=== PATIENT | male | born 1955 | race Caucasian/White ===

== ENCOUNTER 2016-09-01 09:34 | Inpatient (IN) | payer MEDICARE ==
[~2016-09-01] VITALS: Ht 175.3 cm; Wt 113.4 kg
[~2016-09-01 09:34] MED LIST: AMLO10TA2 PO; AMLO5TAB2 PO; AMOX875T2 PO; ASP325TEC PO; ASP81TEC PO; ASPI-983 PO; ASPI-999 PO; ATEN50TA PO; ATN50T; ATOR40TA70 PO; CLNZ.5T; CLOP75TA PO; CLOP75TA28 PO; FLUT1DIS26 IH; ISOS30TA3 PO; LISI-556 PO; LISI40TA PO; LOSA100T28 PO; MECL12.579 PO; METH4TAB PO; METO-272 PO; METO-274 PO; NITR0.4T SL; NITR0.4T39 SL; PRAV40TA PO; PRAV80TA2 PO; RT-ALBUINH IH
[2016-09-01] MEDS ORDERED: NS IV 1000 ML 1,000 ML IV SCH (09:45)
[2016-09-01 09:53] LABS: BASOPHILS # (AUTO) 0.1 10^3/uL (0.0-0.1); BASOPHILS % (AUTO) 0 % (0-10); EOSINOPHILS # (AUTO) 0.3 10^3/uL (0.0-0.3); EOSINOPHILS % (AUTO) 2 % (0-10); LYMPHOCYTES % (AUTO) 6 % (12-44); MEAN CORPUSCULAR HEMOGLOBIN 31 PG (25-34); MEAN CORPUSCULAR HGB CONC 34 G/DL (32-36); MEAN CORPUSCULAR VOLUME 92 FL (80-99); MEAN PLATELET VOLUME 9.2 FL (7.4-10.4); MONOCYTES # (AUTO) 1.1 X 10^3 (0.0-1.0); MONOCYTES % (AUTO) 7 % (0-12); NEUTROPHILS # (AUTO) 14.8 X 10^3 (1.8-7.8); NEUTROPHILS % (AUTO) 86 % (42-75); PLATELET COUNT 349 10^3/uL (130-400); RED CELL DISTRIBUTION WIDTH 13.9 % (10.0-14.5); WHITE BLOOD COUNT 17.2 10^3/uL (4.3-11.0)
[2016-09-01] MEDS ORDERED: RT-ALBUTEROL/IPRATROPIUM 3 ML (DUONEB) VIAL INH ONE (10:00)
--- NOTE | 2016-09-01 10:01 | ED Cough/URI ---
General Chief Complaint: Respiratory Problems Stated Complaint: CHEST PAIN Nursing Triage Note: PT REPORTS SOA/COUGH SINCE THURSDAY. PT REPROTS DEVELOPED CP TODAY WITH FEVER AND PRODUCTIVE COUGH. Source: patient, EMS Exam Limitations: no limitations History of Present Illness Time seen by provider: 09:54 Initial Comments 61-year-old male presents with a history of shortness of breath and cough that began 4 days ago. The patient is noted a progressive fever and productive cough. Allergies and Home Medications Allergies Coded Allergies: No Known Drug Allergies (Verified , 09/23/15) Home Medications Amlodipine Besylate 10 Mg Tablet, 10 MG PO DAILY, (Reported) Aspirin 81 Mg Tablet.dr, 81 MG PO DAILY, (Reported) Atorvastatin Calcium 40 Mg Tablet, 40 MG PO HS, (Reported) LAST FILLED 03/19/16 #30 Clopidogrel Bisulfate 75 Mg Tablet, 75 MG PO DAILY, (Reported) LAST FILLED 02/01/16 #90 Isosorbide Mononitrate 30 Mg Tab.er.24h, 30 MG PO DAILY, (Reported) LAST FILLED 04/02/16 #30 Losartan Potassium 100 Mg Tablet, 100 MG PO DAILY, (Reported) LAST FILLED 03/18/16 #30 Meclizine HCl 12.5 Mg Tablet, 12.5 MG PO TID PRN for DIZZINESS, #30 Ref 0 Prescribed by: TAMARA HAN on 05/29/16 1707 Metoprolol Succinate 100 Mg Tab.er.24h, 100 MG PO BID, (Reported) LAST FILLED 03/06/16 #60 Nitroglycerin 0.4 Mg Tab.subl, 0.4 MG SL UD PRN for CHEST PAIN, (Reported) Constitutional: chills, fever EENTM: No hearing loss Respiratory: see HPI, cough Cardiovascular: No chest pain Gastrointestinal: No abdominal pain, No nausea, No vomiting Genitourinary: No dysuria, No frequency Musculoskeletal: No back pain Skin: No rash Psychiatric/Neurological: No Symptoms Reported Hematologic/Lymphatic: No Symptoms Reported Immunological/Allergic: no symptoms reported Past Luzgqxn-Dihvgj-Qkdyam Hx Patient Social History Alcohol Use: Occasionally Uses Recreational Drug Use: No Smoking Status: Former Smoker Type Used: Cigarettes, Smokeless Tobacco Former Smoker/When Quit: May 03, 2012 Recent Foreign Travel: No Contact w/Someone Who Travel: No Recent Infectious Disease Expo: No Recent Hopitalizations: No Immunizations Up To Date Tetanus Booster (TDap): Unknown PED Vaccines UTD: No Date of Pneumonia Vaccine: Jul 27, 2012 Date of Influenza Vaccine: Mar 29, 2016 Seasonal Allergies Seasonal Allergies: No Surgeries HX Surgeries: Yes (SPLENECTOMY, BALOON) Surgeries: Abdominal, Adenoidectomy, Cardiac, Coronary Stent, Tonsillectomy Respiratory Hx Respiratory Disorders: Yes Respiratory Disorders: COPD Cardiovascular Hx Cardiac Disorders: Yes (stents/ballooned) Cardiac Disorders: Coronary Artery Disease, Heart Attack, High Cholesterol, Hypertension Neurological Hx Neurological Disorders: No Reproductive System Hx Reproductive Disorders: No Sexually Transmitted Disease: No HIV/AIDS: No Genitourinary Hx Genitourinary Disorders: No Gastrointestinal Hx Gastrointestinal Disorders: No Musculoskeletal Hx Musculoskeletal Disorders: No Endocrine Hx Endocrine Disorders: No HEENT HX ENT Disorders: No Loss of Vision: Denies Hearing Impairment: Hard of Hearing 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) Cancer: Leukemia Psychosocial Hx Psychiatric Problems: Yes Behavioral Health Disorders: Anxiety Integumentary HX Skin/Integumentary Disorder: No Blood Transfusions Hx Blood Disorders: Yes (HX OF LEUKEMIA) Adverse Reaction to a Blood Tr: No Reviewed Nursing Assessment Reviewed/Agree w Nursing PMH: Yes Family Medical History Family Medial History: Arthritis 19 FATHER 19 MOTHER Cardiovascular disease 19 FATHER Completed stroke 19 FATHER, Onset:Unknown (1981) Deadly fall G8 BROTHER (9 years) Hypercholesterolemia 19 FATHER Hypertension 19 FATHER Myocardial infarction 19 FATHER 19 MOTHER (C.O.D.) Physical Exam Vital Signs Vital Sign - Last 12Hours 09/01/16 09/01/16 09:47 10:01 Temp 102.5 Pulse 133 Resp 18 B/P (MAP) 148/93 Pulse Ox 92 O2 Flow Rate 2.00 Capillary Refill : Less Than 3 Seconds General Appearance: WD/WN, mild distress HEENT: normal ENT inspection Neck: normal inspection Respiratory: no respiratory distress, decreased breath sounds Cardiovascular: regular rate, rhythm, no murmur Gastrointestinal: non tender, soft, no pulsatile mass Extremities: normal range of motion, normal inspection, no pedal edema Neurologic/Psychiatric: no motor/sensory deficits, alert Skin: normal color, warm/dry Focused Exam Lactic Acid Level Laboratory Tests Test 09/01/16 09:35 Lactic Acid Level 1.88 MMOL/L (0.50-2.00) Progress/Results/Core Measures Results/Orders Lab Results Laboratory Tests Test 09/01/16 09:35 Range/Units White Blood Count 17.2 H 4.3-11.0 10^3/uL Red Blood Count 5.10 4.35-5.85 10^6/uL Hemoglobin 15.8 13.3-17.7 G/DL Hematocrit 47 40-54 % Mean Corpuscular Volume 92 80-99 FL Mean Corpuscular Hemoglobin 31 25-34 PG Mean Corpuscular Hemoglobin Concent 34 32-36 G/DL Red Cell Distribution Width 13.9 10.0-14.5 % Platelet Count 349 130-400 10^3/uL Mean Platelet Volume 9.2 7.4-10.4 FL Neutrophils (%) (Auto) 86 H 42-75 % Lymphocytes (%) (Auto) 6 L 12-44 % Monocytes (%) (Auto) 7 0-12 % Eosinophils (%) (Auto) 2 0-10 % Basophils (%) (Auto) 0 0-10 % Neutrophils # (Auto) 14.8 H 1.8-7.8 X 10^3 Lymphocytes # (Auto) 1.0 1.0-4.0 X 10^3 Monocytes # (Auto) 1.1 H 0.0-1.0 X 10^3 Eosinophils # (Auto) 0.3 0.0-0.3 10^3/uL Basophils # (Auto) 0.1 0.0-0.1 10^3/uL Neutrophils % (Manual) 80 % Lymphocytes % (Manual) 7 % Monocytes % (Manual) 5 % Eosinophils % (Manual) 1 % Basophils % (Manual) 0 % Band Neutrophils 7 % [place]hotra[place] Bodies SLIGHT Sodium Level 139 135-145 MMOL/L Potassium Level 4.0 3.6-5.0 MMOL/L Chloride Level 100 98-107 MMOL/L Carbon Dioxide Level 29 21-32 MMOL/L Anion Gap 10 5-14 MMOL/L Blood Urea Nitrogen 13 7-18 MG/DL Creatinine 1.35 H 0.60-1.30 MG/DL Estimat Glomerular Filtration Rate 54 BUN/Creatinine Ratio 10 Glucose Level 143 H 70-105 MG/DL Lactic Acid Level 1.88 0.50-2.00 MMOL/L Calcium Level 8.7 8.5-10.1 MG/DL Total Bilirubin 1.4 H 0.1-1.0 MG/DL Aspartate Amino Transf (AST/SGOT) 29 5-34 U/L Alanine Aminotransferase (ALT/SGPT) 25 0-55 U/L Alkaline Phosphatase 84 40-136 U/L Total Protein 7.1 6.4-8.2 G/DL Albumin 3.9 3.2-4.5 G/DL My Orders Orders - CLAUDIA ZALDIVAR MD Blood Culture (09/01/16 09:41) Lactic Acid Analyzer (09/01/16 09:41) Cbc With Automated Diff (09/01/16 09:41) Comprehensive Metabolic Panel (09/01/16 09:41) Chest Pa/Lat (2 View) (09/01/16 09:41) Ns Iv 1000 Ml (Sodium Chloride 0.9%) (09/01/16 09:45) Saline Lock/Iv-Start (09/01/16 09:52) Albuterol/Ipra Inhalation Soln (Duoneb I (09/01/16 10:00) Svn Sm Volume Nebulizer Rt-Rfs (09/01/16 09:52) Manual Differential (09/01/16 09:35) Ceftriaxone Injection (Rocephin Injectio (09/01/16 11:15) Azithromycin Injection (Zithromax Inject (09/01/16 11:15) Medications Given in ED Current Medications Medications Dose Ordered Sig/Mio Route Start Time Stop Time Status Last Admin Dose Admin Albuterol/ Ipratropium 3 ml ONCE ONCE INH 09/01/16 10:00 09/01/16 10:01 DC 09/01/16 10:01 3 ML Vital Signs/I&O Vital Sign - Last 12Hours 09/01/16 09/01/16 09:47 10:01 Temp 102.5 Pulse 133 Resp 18 B/P (MAP) 148/93 Pulse Ox 92 91 O2 Flow Rate 2.00 Blood Pressure Mean: 111 Progress Note : Time: 11:10 Progress Note The patient's chest x-ray did not reveal a significant infiltrate on my review. His white count however was 17,000. The patient was treated with 2 g Rocephin and 500 mg of a Zithromax IV. I discussed the patient with Dr. Godfrey who is kind enough to admit. Orders have been written the patient will be transferred to the medical floor. Departure Communication Time/Spoke to Admitting Phy: 11:[address] Godfrey (bonding machine operator for Dr. Reed) Impression Impression: Primary Impression: URI (upper respiratory infection) Qualified Codes: J06.9 - Acute upper respiratory infection, unspecified; B97.89 - Other viral agents as the cause of diseases classified elsewhere Additional Impression: URI, acute Disposition: ADMITTED INPATIENT Condition: Improved Decision to Admit Reason: Admit from ER (General) Decision to Admit/Date: Sep 01, 2016 Time/Decision to Admit Time: 11:12 Departure-Patient Inst. Referrals: TRISTEN REED DO (PCP/Family) Primary Care Physician CLAUDIA ZALDIVAR MD Sep 01, 2016 10:01
[2016-09-01 10:08] LABS: ALBUMIN 3.9 G/DL (3.2-4.5); BILIRUBIN,TOTAL 1.4 MG/DL (0.1-1.0); CALCIUM 8.7 MG/DL (8.5-10.1); CREATININE SERUM 1.35 MG/DL (0.60-1.30); TOTAL PROTEIN 7.1 G/DL (6.4-8.2)
[2016-09-01 10:40] LABS: BAND NEUTROPHILS 7 %; BASOPHILS % (MANUAL) 0 %; EOSINOPHILS % (MANUAL) 1 %; LYMPHOCYTES % (MANUAL) 7 %; NEUTROPHILS % (MANUAL) 80 %
[2016-09-01 10:41] LABS: HOWELL-JOLLY BODIES SLIGHT
--- NOTE | 2016-09-01 11:05 | Diagnostic Imaging Report ---
Clinical indication: Patient reports shortness of air and cough since . Patient reports developed chest pain today with fever and productive cough. Exam: Chest x-ray PA and lateral views. Comparisons: Chest x-ray dated 05/28/2016. Findings: Lungs/pleura: There is interval development of mild increased density in the left lung base which may represent atelectasis versus infiltrate. Otherwise, the remainder the lungs are clear. Stable mild atelectasis involving the right lung base. There is no pneumothorax. There is no pleural effusion. Mediastinum: Unremarkable. Pulmonary vasculature: Unremarkable. Heart: Unremarkable. Bones/extrathoracic soft tissue: There are mild to moderate degenerative osteophytes scattered throughout the thoracic spine. Impression: 1: Interval development of mild left lung base atelectasis versus infiltrate. 2: Stable suspected mild bibasilar atelectasis. Dictated by: Dictated on workstation # [id number]
[2016-09-01] MEDS ORDERED: cefTRIAXone INJECTION 2,000 MG in NS (IVPB) 50 ML IV ONE (11:15)
[2016-09-01] MEDS ORDERED: AZITHROMYCIN INJECTION 500 MG in NS (IVPB) 250 ML IV ONE (11:15)
[2016-09-01] MEDS ORDERED: ACETAMINOPHEN 500 MG TAB (TYLENOL) ONE (12:06)
[2016-09-01] MEDS ORDERED: [UNRECOGNIZED DRUG - CODE] PO (12:59)
[2016-09-01] MEDS ORDERED: D ME PO (12:59)
[2016-09-01] MEDS ORDERED: CHLO1TAB74 PO (12:59)
[2016-09-01] MEDS ORDERED: ASPI-999 PO (13:04)
[2016-09-01] MEDS ORDERED: CATHETER FLUSH 10 ML SYR IV PRN (14:30)
[2016-09-01] MEDS ORDERED: RT-ALBUTEROL/IPRATROPIUM 3 ML (DUONEB) VIAL IH PRN (14:30)
[2016-09-01] MEDS: NS IV 1000 ML 1,000 ML IV SCH ×2 (14:43→20:08)
[2016-09-01] MEDS: RT-ALBUTEROL/IPRATROPIUM 3 ML (DUONEB) VIAL IH SCH ×3 (15:00→19:11)
[2016-09-01 16:20] VITALS: BP 127/78
[2016-09-01 19:45] VITALS: BP 146/79
[2016-09-01] MEDS ORDERED: NITROGLYCERIN SUBLINGUAL 0.4 MG TAB (NITROSTAT) SL ONE (19:49)
[2016-09-01 19:56] VITALS: BP 123/67
[2016-09-01] MEDS ORDERED: NITROGLYCERIN SUBLINGUAL 0.4 MG TAB (NITROSTAT) SL PRN (20:00)
[2016-09-01] MEDS: ACETAMINOPHEN 500 MG TAB (TYLENOL) PO PRN (20:06)
[2016-09-01 20:10] VITALS: BP 119/63
[2016-09-02] VITALS: BP 144/84
[2016-09-02 02:21] LABS: BASOPHILS # (AUTO) 0.1 10^3/uL (0.0-0.1); BASOPHILS % (AUTO) 0 % (0-10); EOSINOPHILS # (AUTO) 0.1 10^3/uL (0.0-0.3); EOSINOPHILS % (AUTO) 1 % (0-10); LYMPHOCYTES # (AUTO) 2.3 X 10^3 (1.0-4.0); LYMPHOCYTES % (AUTO) 12 % (12-44); MEAN CORPUSCULAR HEMOGLOBIN 32 PG (25-34); MEAN CORPUSCULAR HGB CONC 34 G/DL (32-36); MEAN CORPUSCULAR VOLUME 93 FL (80-99); MEAN PLATELET VOLUME 8.8 FL (7.4-10.4); MONOCYTES # (AUTO) 1.4 X 10^3 (0.0-1.0); MONOCYTES % (AUTO) 8 % (0-12); NEUTROPHILS # (AUTO) 14.9 X 10^3 (1.8-7.8); NEUTROPHILS % (AUTO) 80 % (42-75); PLATELET COUNT 308 10^3/uL (130-400); RED BLOOD COUNT 4.14 10^6/uL (4.35-5.85); RED CELL DISTRIBUTION WIDTH 13.8 % (10.0-14.5); WHITE BLOOD COUNT 18.7 10^3/uL (4.3-11.0)
[2016-09-02 02:43] LABS: ALANINE AMINOTRANSFERASE 22 U/L (0-55); ALBUMIN 3.2 G/DL (3.2-4.5); ANION GAP 8 MMOL/L (5-14); ASPARTATE AMINO TRANSFERASE 23 U/L (5-34); BLOOD UREA NITROGEN 14 MG/DL (7-18); BUN/CREATININE RATIO 12; CALCIUM 7.9 MG/DL (8.5-10.1); CARBON DIOXIDE 24 MMOL/L (21-32); CHLORIDE 105 MMOL/L (98-107); GFR ESTIMATED > 60; GLUCOSE 155 MG/DL (70-105); POTASSIUM 3.5 MMOL/L (3.6-5.0); SODIUM 137 MMOL/L (135-145); TOTAL PROTEIN 5.6 G/DL (6.4-8.2)
[2016-09-02] MEDS: NS IV 1000 ML 1,000 ML IV SCH ×4 (03:36→23:58)
[2016-09-02 04:00] VITALS: BP 149/84
[2016-09-02] MEDS: RT-ALBUTEROL/IPRATROPIUM 3 ML (DUONEB) VIAL IH SCH ×4 (07:47→20:05)
[2016-09-02 07:54] VITALS: BP 139/93
[2016-09-02] MEDS: cefTRIAXone 1 GM/NS 50 ML IVPB IV SCH ×2 (08:04)
[2016-09-02] MEDS: AZITHROMYCIN 500 MG/NS 250 ML IVPB IV SCH ×2 (08:44)
--- NOTE | 2016-09-02 10:01 | Diagnostic Imaging Report ---
PA and lateral chest at 8:54 AM. INDICATION: Pneumonia. The heart size is within normal limits and stable when compared to 09/01/2016. The previous exam did suggest bibasilar infiltrates. On this study both lung bases do seem better aerated. There is still a small amount of residual density in both lung bases, particularly on the left. The upper lungs are clear. The mediastinum is not widened. The osseous structures are intact. IMPRESSION: The appearance of the chest has improved as the lung bases do seem better aerated. There is still a small amount of residual atelectasis/infiltrate present bilaterally especially on the left. Dictated by: Dictated on workstation # [id number]
--- NOTE | 2016-09-02 11:40 | History & Physical-Hospitalist ---
HPI History of Present Illness: HPI/Chief Complaint The patient is a 61-year-old white male known to me over the last 30 or more years. He reports that he began to feel unwell last . By Thursday morning, 09/01, he noted fever and chills and came to the emergency room. While there he was found to have a temperature of 102.5 with a white count of 17,200 and a left shift. There was evidence that he was dehydrated as well. Chest x- ray suggested pneumonia and he was admitted for definitive treatment. 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 Source: patient Exam Limitations: no limitations Date Seen 09/02/16 Attending Physician Annie Godfrey Linda K DO Referring Physician Date of Admission Sep 01, 2016 at 11:00 Home Medications & Allergies Home Medications Reviewed patient Home Medication Reconciliation Form Allergies Allergies Coded Allergies No Known Drug Allergies (Verified09/23/15) Past Jmuzxwk-Pdffdi-Oscvst Hx Patient Social History Alcohol Use: Occasionally Uses Recreational Drug Use: No Smoking Status: Never a Smoker Former smoker/When Quit: May 03, 2012 Type Used: Cigarettes, Smokeless Tobacco Physical Abuse Screen: No Sexual Abuse: No Recent Foreign Travel: No Contact w/other who traveled: No Recent Hopitalizations: No Recent Infectious Disease Expo: No Immunizations Up To Date Tetanus Booster (TDap): Unknown Date of Pneumonia Vaccine: Jul 27, 2012 Date of Influenza Vaccine: Mar 29, 2016 Seasonal Allergies Seasonal Allergies: No Surgeries HX Surgeries: Yes (SPLENECTOMY, BALOON) Surgeries: Abdominal, Adenoidectomy, Cardiac, Coronary Stent, Tonsillectomy Respiratory Hx Respiratory Disorders: Yes Cardiovascular Hx Cardiovascular Disorders: Yes (stents/ballooned) Cardiac Disorders: Coronary Artery Disease, Heart Attack, High Cholesterol, Hypertension Neurological Hx Neurological Disorders: No Reproductive System Hx Reproductive Disorders: No Sexually Transmitted Disease: No HIV/AIDS: No Genitourinary Hx Genitourinary Disorders: No Gastrointestinal Hx Gastrointestinal Disorders: No Musculoskeletal Hx Musculoskeletal Disorders: No Endocrine Hx Endocrine Disorders: No HEENT HX ENT Disorders: No Loss of Vision: Denies Hearing Impairment: Hard of Hearing 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) Cancer: Leukemia Psychosocial Hx Psychiatric Problems: Yes Behavioral Health Disorders: Anxiety Integumentary HX Skin/Integumentary Disorder: No Blood Transfusions Hx Blood Disorders: Yes (HX OF LEUKEMIA) Adverse Reaction to a Blood Tr: No Reviewed Nursing Assessment Reviewed/Agree w Nursing PMH: Yes Family Medical History Family Hx: Arthritis 19 FATHER 19 MOTHER Cardiovascular disease 19 FATHER Completed stroke 19 FATHER, Onset:Unknown (1981) Deadly fall G8 BROTHER (9 years) Hypercholesterolemia 19 FATHER Hypertension 19 FATHER Myocardial infarction 19 FATHER 19 MOTHER (C.O.D.) Review of Systems Constitutional: see HPI EENTM: no symptoms reported Respiratory: cough, phlegm Cardiovascular: chest pain (after coughing) Gastrointestinal: no symptoms reported Genitourinary: no symptoms reported Musculoskeletal: no symptoms reported Skin: no symptoms reported Psychiatric/Neurological: No Symptoms Reported Physical Exam Physical Exam Vital Signs Vital Sign - Last 12Hours 09/01/16 09/01/16 09/01/16 09:47 10:01 16:20 Temp 102.5 Pulse 133 Resp 18 B/P (MAP) 148/93 Pulse Ox 92 O2 Delivery Room Air O2 Flow Rate 2.00 Capillary Refill : Less Than 3 Seconds General Appearance: Mild Distress Eyes: Bilateral Eye Normal Inspection HEENT: Other (poor dentition) Neck: Normal Inspection Respiratory: Chest Non Tender, Lungs Clear, Normal Breath Sounds, No Accessory Muscle Use, No Respiratory Distress Cardiovascular: Regular Rate, Rhythm, No Edema, No Gallop, No JVD, No Murmur, Normal Peripheral Pulses Gastrointestinal: Normal Bowel Sounds, No Organomegaly, No Pulsatile Mass, Non Tender, Soft Extremity: Normal Capillary Refill, Normal Inspection, Normal Range of Motion, Non Tender, No Calf Tenderness, No Pedal Edema Neurologic/Psychiatric: Alert, Oriented x3, No Motor/Sensory Deficits, Normal Mood/Affect Skin: Normal Color, Warm/Dry Lymphatic: No Adenopathy Results Results/Procedures Lab Laboratory Tests 09/01/16 09:35 09/02/16 02:10 Assessment/Plan Admission Diagnosis Pneumonia. 2.history of hairy cell leukemia. 3.history of coronary artery disease with previous intervention and stenting Assessment and Plan IV antibiotics as started. If white count falls in a.m. and he has remained afebrile for at least 24 hours he will be discharged complete treatment at home. Clinical Quality Measures DVT/VTE Risk/Contraindication: Risk Factor Score Per Nursin RFS Level Per Nursing on Admit: 4+=Very High KAREN CHAVEZ MD Sep 02, 2016 11:40
--- NOTE | 2016-09-02 11:58 | Consultation-Cardiology ---
HPI-Cardiology Cardiology Consultation: Date of Consultation 09/02/16 Date of Admission 09-01-16 Attending Physician Annie Coronado DO Admitting Physician Shavon Reed DO Consulting Physician Kamilah Johnston MD HPI: Chief Complaint: Dyspnea Chest pain Mr. Cavazos is a 61 year old male admitted to 432 from the ED with pneumonia. He reports increasing shortness of breath with productive cough. He reports chest discomfort across his chest present with cough and movement. He reports fever and chills at home. No c/o n/v/d. No c/o palpitations, syncope or near syncope. No c/o LE edema. Review of Systems-Cardiology Review of Systems Constitutional: As described under HPI Eyes: No blurred vision, No drainage, No pain, No vision change Ears/Nose/Throat: No ear discharge, No ear pain, No nasal drainage, No ulcerations Respiratory: As described under HPI Cardiovascular: As described under HPI Gastrointestinal: No constipation, No diarrhea, No nausea, No vomiting, No stool coloration changes Genitourinary: No dysuria, No discharge, No frequency, No hematuria, No urgency Skin: No rash, No skin related problems, No ulcerations Psychiatric/Neurological: No anxiety, No depression, No focal weakness, No seizure, No syncope Hematologic: No bleeding abnormalities JPY-Doakqm-Vukktv Hx Patient Social History Alcohol Use: Occasionally Uses Recreational Drug Use: No Smoking Status: Never a Smoker Former smoker/When Quit: May 03, 2012 Type Used: Cigarettes, Smokeless Tobacco Recent Foreign Travel: No Recent Infectious Disease Expo: No Physical Abuse Screen: No Sexual Abuse: No Immunizations Up To Date Tetanus Booster (TDap): Unknown Date of Pneumonia Vaccine: Jul 27, 2012 Date of Influenza Vaccine: Mar 29, 2016 Past Medical History PMH As described under Assessment. Family Medical History Family Medical History: Family history of CAD and htn and stroke and DM II. Father may have had an IN in his 60s Family History: Arthritis 19 FATHER 19 MOTHER Cardiovascular disease 19 FATHER Completed stroke 19 FATHER, Onset:Unknown (1981) Deadly fall G8 BROTHER (9 years) Hypercholesterolemia 19 FATHER Hypertension 19 FATHER Myocardial infarction 19 FATHER 19 MOTHER (C.O.D.) Allergies and Home Medications Allergies Coded Allergies: No Known Drug Allergies (Verified , 09/23/15) Home Medications Amlodipine Besylate 10 Mg Tablet, 10 MG PO DAILY, (Reported) LAST FILLED #90 11-21-16 Aspirin 81 Mg Tab.chew, 81 MG PO DAILY, (Reported) Atorvastatin Calcium 40 Mg Tablet, 40 MG PO HS, (Reported) LAST FILLED 03/19/16 #30 Chlorphenir/Phenyleph/Aspirin 1 Each Tablet.eff, 2 TAB PO Q4H PRN for CONGESTION , (Reported) Clopidogrel Bisulfate 75 Mg Tablet, 75 MG PO DAILY, (Reported) LAST FILLED 02/01/16 #90 D-Methorphan/Acetamin/Doxylamn 237 Ml Liquid, 30 ML PO Q6H PRN for COLD, ( Reported) Isosorbide Mononitrate 30 Mg Tab.er.24h, 30 MG PO DAILY, (Reported) LAST FILLED 06-03-16 #30 Losartan Potassium 100 Mg Tablet, 100 MG PO DAILY, (Reported) LAST FILLED 06-03-16 #30 Metoprolol Succinate 100 Mg Tab.er.24h, 100 MG PO BID, (Reported) LAST FILLED 06-03-16 #60 Nitroglycerin 0.4 Mg Tab.subl, 0.4 MG SL UD PRN for CHEST PAIN, (Reported) Physical Exam-Cardiology Physical Exam Vital Signs/I&O Vital Sign - Last 12Hours 09/02/16 09/02/16 09/02/16 09/02/16 04:00 07:47 07:54 09:00 Temp 99.2 99.8 Pulse 96 102 Resp 18 22 B/P (MAP) 149/84 139/93 Pulse Ox 96 93 93 93 O2 Delivery Nasal Cannula Room Air O2 Flow Rate 2.00 0.00 0.00 09/02/16 11:48 Pulse Ox 94 Intake and Output 09/02/16 00:00 Intake Total 3000 ml Balance 3000 ml Capillary Refill : Less Than 3 Seconds Constitutional: appears stated age, No apparent distress, well-developed, well- nourished HEENT: PERRL, No discharge, hearing is well preserved, oral hygience is good, No ulceration, No xanthelasmas are seen Neck: No carotid bruit, carotid pulses are 2 + bilaterally Respiratory: No accessory muscle use, No respiratory distress, crackles (bases bilat), wheezing (expiratory wheezes) Cardiovascular: regular rate-rhythm, No JVD, S1 and S2 Gastrointestinal: No tender, soft, round, audible bowel sounds, No spleenomegaly Extremities: No clubbing, No cyanosis, No significant edema Neurologic/Psychiatric: alert, oriented x 3, power is 5/5 both on sides Skin: No rash, No ulcerations Data Review Labs Laboratory Tests 09/01/16 20:06: Troponin I < 0.30 09/02/16 02:10: Troponin I < 0.30, White Blood Count 18.7H, Red Blood Count 4.14L, Hemoglobin 13.1L, Hematocrit 39L, Mean Corpuscular Volume 93, Mean Corpuscular Hemoglobin 32, Mean Corpuscular Hemoglobin Concent 34, Red Cell Distribution Width 13.8, Platelet Count 308, Mean Platelet Volume 8.8, Neutrophils (%) (Auto) 80H, Lymphocytes (%) (Auto) 12, Monocytes (%) (Auto) 8, Eosinophils (%) (Auto) 1, Basophils (%) (Auto) 0, Neutrophils # (Auto) 14.9H, Lymphocytes # (Auto) 2.3, Monocytes # (Auto) 1.4H, Eosinophils # (Auto) 0.1, Basophils # (Auto) 0.1, Sodium Level 137, Potassium Level 3.5L, Chloride Level 105, Carbon Dioxide Level 24, Anion Gap 8, Blood Urea Nitrogen 14, Creatinine 1.20, Estimat Glomerular Filtration Rate > 60, BUN/Creatinine Ratio 12, Glucose Level 155H, Calcium Level 7.9L, Total Bilirubin 1.0, Aspartate Amino Transf (AST/SGOT) 23, Alanine Aminotransferase (ALT/SGPT) 22, Alkaline Phosphatase 65, Total Protein 5.6L, Albumin 3.2 Microbiology 09/01/16 Blood Culture - Preliminary, Resulted Staph, Coag Neg (Booster Pump Oiler) Radiology NAME: LILIANE CAVAZOS [facility] REC#: [id number] PT STATUS: ADM IN : 1955 PHYSICIAN: ANNIE CORONADO DO ADMIT DATE: 09/01/16 Draft Date of Exam:09/02/16 CHEST PA/LAT (2 VIEW) PA and lateral chest at 8:54 AM. INDICATION: Pneumonia. The heart size is within normal limits and stable when compared to 09/01/2016. The previous exam did suggest bibasilar infiltrates. On this study both lung bases do seem better aerated. There is still a small amount of residual density in both lung bases, particularly on the left. The upper lungs are clear. The mediastinum is not widened. The osseous structures are intact. IMPRESSION: The appearance of the chest has improved as the lung bases do seem better aerated. There is still a small amount of residual atelectasis/infiltrate present bilaterally especially on the left. Dictated on workstation # [id number] Dict: 09/02/16 0855 Trans: 09/02/16 1001 [id number] Interpreted by: COCO WEIR MD Electronically signed by: ECG Impression ECG Initial ECG Rhythm: S.Tach A/P-Cardiology Assessment/Admission Diagnosis Chest discomfort with cough and movement - no evidence of ACS Pneumonia - management per medical services Coronary artery disease. Cardiac cath of 04-01-16 the proximal and mid LAD artery had 80% stenosis, to which balloon angiplasyt was carried out; that reduced the stenosis to less than 50%. The distal LAD has 70% stenosis where the vessel is tortuous and of a small caliber and this vessel was not intervened on. The left Cx artery has a patent stent in its mid portion known to be a Promus 3 x 8 mm stent placed in 2012. The second OM branch has 70 to 80 % ostial and proximal stenosis. The RCA is dominant and has a patent stent known to be Promus 3 x 20mm stent placed in June 2015. Distal to the stent, the RCA has 60-70% stenosis. LVEF 50-55%. Mild elevation of LVEDP. No significant MR. Echo on 06/15/15 showed: Technically somewhat difficult study, moderate impairment of global left ventricular systolic function with an ejection fraction approximately 40%, posterobasal hypokinesis, trivial, mitral and tricuspid regurgitation, no evidence of significant valvular stenosis Hyperlipidemia - statin, followed by his PCP Chewing tobacco use H/o noncompliance Essential hypertension, likely with a component of white coat hypertension H/O hairy cell leukemia H/O splenectomy [place] of 07-30-15 is normal bilat 24 Hour Holter study of 07-30-15 showed NSR with an average HR of 78 bpm. Infrequent PVC's and PAC's that appear asymptomatic. Brief (up to 6 beat) runs of PSVT or A-fib during sleep hours. No VT, significant bradycardia. No significant ECG changes during episodes of palpitations Refusal to take OAC Discussion and Recomendations Chest discomfort associated with cough and movement with no evidence of ACS thus far. Home medications have already been continued including, ASA, Plavix, BB, ARB, statin and Imdur. Management of pneumonia is per medical services. Further recommendations will be based on his hospital course. We would like to thank the Hospitalist services for this consult. This consult is being scribed by Jaylin Garnett APRN on behalf of Dr. Johnston after discussion regarding plan of care. Clinical Quality Measures DVT/VTE Risk/Contraindication: Risk Factor Score Per Nursin RFS Level Per Nursing on Admit: 4+=Very High Physician Assessment Physician Assessment Lungs: scattered rhonchi and wheezes; increased exp phase Cor: reg A&R * As documented in our note above * Management is relatively complex due to multiple comorbidities * I spoke with him and answered questions * Monitor labs UMAIR GARNETT [employer] Sep 02, 2016 11:58 KAMILAH JOHNSTON MD FACP FAC CCDS Sep 02, 2016 13:01
[2016-09-02 12:00] VITALS: BP 153/89
[2016-09-02] MEDS: ENOXAPARIN 40 MG/0.4 ML (LOVENOX) SYR SC SCH (14:05)
[2016-09-02] MEDS: ACETAMINOPHEN 500 MG TAB (TYLENOL) PO PRN (15:05)
[2016-09-02 16:25] VITALS: BP 149/77
[2016-09-02] MEDS: ATORVASTATIN 40 MG (LIPITOR) TABLET PO SCH (20:32)
[2016-09-02] MEDS: meTOprolol SUCCINATE 100 MG (TOPROL XL) TAB PO SCH (20:32)
[2016-09-02] MEDS: guaiFENesin/DM (ROBITUSSIN DM) 10 ML UDC PO PRN (20:32)
[2016-09-02 20:35] VITALS: BP 169/91
[2016-09-03 00:35] VITALS: BP 162/80
[2016-09-03 04:35] VITALS: BP 161/86
[2016-09-03] MEDS: NS IV 1000 ML 1,000 ML IV SCH (06:25)
[2016-09-03] MEDS: RT-ALBUTEROL/IPRATROPIUM 3 ML (DUONEB) VIAL IH SCH ×4 (06:51→19:01)
[2016-09-03 07:03] LABS: ALANINE AMINOTRANSFERASE 30 U/L (0-55); ALBUMIN 3.4 G/DL (3.2-4.5); ANION GAP 9 MMOL/L (5-14); ASPARTATE AMINO TRANSFERASE 28 U/L (5-34); BILIRUBIN,TOTAL 1.4 MG/DL (0.1-1.0); BLOOD UREA NITROGEN 6 MG/DL (7-18); BUN/CREATININE RATIO 7; CALCIUM 8.3 MG/DL (8.5-10.1); CARBON DIOXIDE 19 MMOL/L (21-32); CHLORIDE 106 MMOL/L (98-107); CHOLESTEROL 129 MG/DL (< 200); CREATININE SERUM 0.91 MG/DL (0.60-1.30); DIRECT LDL 83 MG/DL (1-129); GFR ESTIMATED > 60; GLUCOSE 113 MG/DL (70-105); MAGNESIUM 1.7 MG/DL (1.8-2.4); POTASSIUM 3.9 MMOL/L (3.6-5.0); SODIUM 134 MMOL/L (135-145); TOTAL PROTEIN 6.1 G/DL (6.4-8.2); TRIGLYCERIDES 55 MG/DL (<150); VLDL CHOLESTEROL 11 MG/DL (5-40)
[2016-09-03 07:59] VITALS: BP 150/83
[2016-09-03] MEDS: CLOPIDOGREL 75 MG (PLAVIX) TABLET PO SCH (08:06)
[2016-09-03] MEDS: cefTRIAXone 1 GM/NS 50 ML IVPB IV SCH ×2 (08:06)
[2016-09-03] MEDS: ASPIRIN 81 MG CHEW (CHILDREN'S ASA) PO SCH (08:06)
[2016-09-03] MEDS: amLODIPine 10 MG (NORVASC) TAB PO SCH (08:06)
[2016-09-03] MEDS: ISOSORBIDE MONONITRATE 30 MG (IMDUR) TAB PO SCH (08:06)
[2016-09-03] MEDS: meTOprolol SUCCINATE 100 MG (TOPROL XL) TAB PO SCH ×2 (08:06→20:36)
[2016-09-03] MEDS: LOSARTAN 50 MG (COZAAR) TAB PO SCH (08:06)
[2016-09-03] MEDS: AZITHROMYCIN 500 MG/NS 250 ML IVPB IV SCH ×2 (08:16)
--- NOTE | 2016-09-03 09:43 | Progress Note-Cardiology ---
Cardiology SOAP Progress Note Subjective: Sitting up in bed. No c/o CP, palpitations, syncope or near syncope. No c/o SOB. Reports feels generally unwell. C/O diarrhea. C/O loose cough. Objective: I&O/Vital Signs Vital Sign - Last 12Hours 09/03/16 09/03/16 09/03/16 09/03/16 06:51 06:59 07:59 09:00 Temp 100.1 99.6 Pulse 105 Resp 20 B/P (MAP) 150/83 Pulse Ox 92 92 92 O2 Delivery Room Air Room Air O2 Flow Rate 0.00 09/03/16 09/03/16 09/03/16 09/03/16 10:31 12:00 15:04 16:35 Temp 99.9 99.4 Pulse 102 98 Resp 20 20 B/P (MAP) 131/76 128/66 Pulse Ox 93 94 92 93 O2 Delivery Room Air Room Air Intake and Output 09/03/16 00:00 Intake Total 2880 ml Balance 2880 ml Weight (Pounds): 250 Weight (Ounces): 0.0 Weight (Calculated Kilograms): 113.837931 Constitutional: appears stated age, No apparent distress, well-developed, well- nourished Respiratory: No accessory muscle use, No respiratory distress, crackles (bases bilat), wheezing (expiratory wheezes), other (loose cough) Cardiovascular: regular rate-rhythm, No JVD, S1 and S2 Gastrointestional: No tender, soft, round, audible bowel sounds, No spleenomegaly Extremities: No clubbing, No cyanosis, No significant edema Neurologic/Psychiatric: alert, oriented x 3, power is 5/5 both on sides Skin: No rash, No ulcerations Results/Procedures: Labs Laboratory Tests 09/03/16 06:24: Sodium Level 134L, Potassium Level 3.9, Chloride Level 106, Carbon Dioxide Level 19L, Anion Gap 9, Blood Urea Nitrogen 6L, Creatinine 0.91, Estimat Glomerular Filtration Rate > 60, BUN/Creatinine Ratio 7, Glucose Level 113H, Calcium Level 8.3L, Magnesium Level 1.7L, Total Bilirubin 1.4H, Aspartate Amino Transf (AST/SGOT) 28, Alanine Aminotransferase (ALT/SGPT) 30, Alkaline Phosphatase 68, Total Protein 6.1L, Albumin 3.4, Triglycerides Level 55, Cholesterol Level 129, LDL Cholesterol Direct 83, VLDL Cholesterol 11, HDL Cholesterol 37L Microbiology 09/01/16 Blood Culture - Preliminary, Resulted No growth 09/03/16 C. difficile GDH Antigen & Toxins - Final, Complete A/P: Assessment: Chest discomfort with cough and movement - no evidence of ACS Pneumonia - management per medical services Coronary artery disease. Cardiac cath of 04-01-16 the proximal and mid LAD artery had 80% stenosis, to which balloon angiplasyt was carried out; that reduced the stenosis to less than 50%. The distal LAD has 70% stenosis where the vessel is tortuous and of a small caliber and this vessel was not intervened on. The left Cx artery has a patent stent in its mid portion known to be a Promus 3 x 8 mm stent placed in 2012. The second OM branch has 70 to 80 % ostial and proximal stenosis. The RCA is dominant and has a patent stent known to be Promus 3 x 20mm stent placed in June 2015. Distal to the stent, the RCA has 60-70% stenosis. LVEF 50-55%. Mild elevation of LVEDP. No significant MR. Echo on 06/15/15 showed: Technically somewhat difficult study, moderate impairment of global left ventricular systolic function with an ejection fraction approximately 40%, posterobasal hypokinesis, trivial, mitral and tricuspid regurgitation, no evidence of significant valvular stenosis Hyperlipidemia - statin, followed by his PCP Chewing tobacco use H/o noncompliance Essential hypertension, likely with a component of white coat hypertension H/O hairy cell leukemia H/O splenectomy [place] of 07-30-15 is normal bilat 24 Hour Holter study of 07-30-15 showed NSR with an average HR of 78 bpm. Infrequent PVC's and PAC's that appear asymptomatic. Brief (up to 6 beat) runs of PSVT or A-fib during sleep hours. No VT, significant bradycardia. No significant ECG changes during episodes of palpitations Refusal to take OAC Plan: Chest discomfort associated with cough and movement with no evidence of ACS Pneumonia - management per medical services Management of pneumonia is per medical services. Physician Assessment Physician Assessment Lungs: good bilat air entry Cor: reg A&R * As documented in our note above UMAIR WALTERS INTERNET [employer] COMMERCE SPECIALIST Sep 03, 2016 09:43 LETICIA PENA MD FACP [facility] Sep 03, 2016 18:11
[2016-09-03] MEDS ORDERED: doxAzosin 2 MG (CARDURA) TAB PO PRN (09:45)
[2016-09-03] MEDS: guaiFENesin/DM (ROBITUSSIN DM) 10 ML UDC PO PRN (11:45)
[2016-09-03] MEDS ORDERED: LOPERAMIDE 2 MG (IMODIUM) CAP PO PRN (11:45)
[2016-09-03] MEDS: RT-BUDESONIDE NEBS 0.5 MG/2ML (PULMICORT) AMP INH SCH ×2 (11:45→19:01)
[2016-09-03] MEDS ORDERED: CHOLESTYRAMINE 4 GM (QUESTRAN LITE, PREVALITE) PKT PO PRN (11:45)
[2016-09-03] MEDS: ENOXAPARIN 40 MG/0.4 ML (LOVENOX) SYR SC SCH (11:45)
[2016-09-03] MEDS: methylPREDNISolone 40 MG/ML (Solu-MEDROL) VIAL IV SCH ×2 (11:45→18:05)
--- NOTE | 2016-09-03 11:56 | Progress Note-Hospitalist ---
Progress Note HPI/CC on Admission The patient is a 61-year-old white male known to me over the last 30 or more years. He reports that he began to feel unwell last . By Thursday morning, 09/01, he noted fever and chills and came to the emergency room. While there he was found to have a temperature of 102.5 with a white count of 17,200 and a left shift. There was evidence that he was dehydrated as well. Chest x- ray suggested pneumonia and he was admitted for definitive treatment. 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 Progress Notes/Assess & Plan Date Seen 09/03/16 Diagonsis/Assessment & Plan development specialist: Anne Hugh coag-negative. Pt has been on ABX for 2 day. Pt has 2 doses of Rocephin. Pt would like to be DC. Patient Interview: Pt states he does not feel well currently. Pt states his fever is going up and down and up. Pt states he does not want to be DC when told he may be able to be DC today. Physical exam sounded better. Pt states he would like meds to stop loose stools. Scribed by Aj Anderson under the direct supervision of Dr. Godfrey. Fever 100.8, pleasant, chronically ill, anxious Regular rate and rhythm, clear to auscultation bilaterally but there are wheezes at the end expiratory phase in the bases No edema Assessment: Bilateral pneumonia Acute exacerbation of COPD Hypertension Coronary artery disease on Plavix Chronic angina Plan: Nebulizer treatments IV steroids IV antibiotics Ambulate Imodium and Questran for loose stools that are C. difficile negative Discharge tomorrow GEOVANY GODFREY DO Sep 03, 2016 11:56
[2016-09-03 12:00] VITALS: BP 131/76
[2016-09-03] MEDS ORDERED: RT-ALBUTEROL/IPRATROPIUM 3 ML (DUONEB) VIAL INH SCH (13:00)
[2016-09-03 16:35] VITALS: BP 128/66
[2016-09-03 20:00] VITALS: BP 142/77
[2016-09-03] MEDS: ATORVASTATIN 40 MG (LIPITOR) TABLET PO SCH (20:36)
[2016-09-04] VITALS: BP 132/61
[2016-09-04] MEDS: methylPREDNISolone 40 MG/ML (Solu-MEDROL) VIAL IV SCH ×2 (00:52→06:21)
[2016-09-04 04:03] VITALS: BP 129/72
[2016-09-04] MEDS: RT-ALBUTEROL/IPRATROPIUM 3 ML (DUONEB) VIAL IH SCH ×2 (07:00→11:06)
[2016-09-04] MEDS: RT-BUDESONIDE NEBS 0.5 MG/2ML (PULMICORT) AMP INH SCH (07:00)
[2016-09-04] MEDS: cefTRIAXone 1 GM/NS 50 ML IVPB IV SCH ×2 (08:17)
[2016-09-04] MEDS: LOSARTAN 50 MG (COZAAR) TAB PO SCH (08:17)
[2016-09-04] MEDS: meTOprolol SUCCINATE 100 MG (TOPROL XL) TAB PO SCH (08:18)
[2016-09-04] MEDS: CLOPIDOGREL 75 MG (PLAVIX) TABLET PO SCH (08:18)
[2016-09-04] MEDS: ISOSORBIDE MONONITRATE 30 MG (IMDUR) TAB PO SCH (08:18)
[2016-09-04] MEDS: ASPIRIN 81 MG CHEW (CHILDREN'S ASA) PO SCH (08:18)
[2016-09-04] MEDS: amLODIPine 10 MG (NORVASC) TAB PO SCH (08:18)
[2016-09-04 08:22] VITALS: BP 172/91
[2016-09-04] MEDS ORDERED: AZITHROMYCIN 250 MG TAB (ZITHROMAX) PO SCH (09:00)
[2016-09-04] MEDS: guaiFENesin/DM (ROBITUSSIN DM) 10 ML UDC PO PRN (09:04)
--- NOTE | 2016-09-04 10:35 | Discharge Summary-Hospitalist ---
Diagnosis/Chief Complaint Date of Admission Sep 01, 2016 at 11:00 Date of Discharge Admission Diagnosis Pneumonia. 2.history of hairy cell leukemia. 3.history of coronary artery disease with previous intervention and stenting Discharge Diagnosis Pneumonia. 2.history of hairy cell leukemia. 3.history of coronary artery disease with previous intervention and stenting computerized mill mill recorder: Anne Reese coag-negative. Pt has been on ABX for 2 day. Pt has 2 doses of Rocephin. Pt would like to be DC. Patient Interview: Pt states he does not feel well currently. Pt states his fever is going up and down and up. Pt states he does not want to be DC when told he may be able to be DC today. Physical exam sounded better. Pt states he would like meds to stop loose stools. Scribed by Aj Anderson under the direct supervision of Dr. Coronado. Fever 100.8, pleasant, chronically ill, anxious Regular rate and rhythm, clear to auscultation bilaterally but there are wheezes at the end expiratory phase in the bases No edema Assessment: Bilateral pneumonia Acute exacerbation of COPD Hypertension Coronary artery disease on Plavix Chronic angina Plan: Nebulizer treatments IV steroids IV antibiotics Ambulate Imodium and Questran for loose stools that are C. difficile negative Discharge tomorrow Reason Hospital Visit/Course The patient is a 61-year-old white male known to me over the last 30 or more years. He reports that he began to feel unwell last . By Thursday morning, 09/01, he noted fever and chills and came to the emergency room. While there he was found to have a temperature of 102.5 with a white count of 17,200 and a left shift. There was evidence that he was dehydrated as well. Chest x- ray suggested pneumonia and he was admitted for definitive treatment. 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 Note from 09/04/2016 Chart Review: No fever, Vitals stable Patient Interview: Pt states he feels well currently. Pt states he is ready to be DC. Pt states he uses [facility]. Physical exam was stable. Pt states his bowels are regular and no longer loose. Pt will have close follow-up with Fallon Gallo. Scribed by Aj Anderson under the direct supervision of Dr. Coronado. No fever, vital signs stable, pleasant, much improved Regular rate and rhythm, clear to auscultation bilaterally but subtle rales are noted in the bilateral lower lobes but much improved No edema Hospital course: Patient had an uneventful hospital course he was placed on empiric antibiotics and IV fluids and nebulizer treatments with oxygen. Overall he improved he did have loose stools requiring Imodium and Questran resolved at time of discharge. Lab work was evaluated and noted leukocytosis after steroids were initiated for exacerbation of COPD but overall he improved enough and was willing to go home on day of discharge in improved condition with close follow-up as [facility]. Discharge Summary Discharge Physical Examination Allergies: Coded Allergies: No Known Drug Allergies (Verified , 09/23/15) Vitals & I&Os Vital Signs Date Time Temp Pulse Resp B/P (MAP) Pulse Ox O2 Delivery O2 Flow Rate FiO2 09/04/16 11:06 93 09/04/16 09:00 Room Air 09/04/16 08:22 97.7 113 16 172/91 09/03/16 21:00 0.00 Hospital Course Labs (last 24 hrs) Microbiology 09/01/16 Blood Culture - Preliminary, Resulted No growth 09/03/16 C. difficile GDH Antigen & Toxins - Final, Complete Discharge Home Medications: Active Scripts Active Cefdinir 300 Mg Capsule 300 Mg PO BID Prednisone 10 Mg Tab.ds.pk 10 Mg PO DAILY Take 6 tabs(60mg)daily,decrease by 1 tab(10MG)daily. Reported Aspirin 81 Mg Tab.chew 81 Mg PO DAILY Night Time Cold & Flu Liquid (D-Methorphan/Acetamin/Doxylamn) 237 Ml Liquid 30 Ml PO Q6H PRN Melissa-Wheelwright Plus Cold Tab Eff (Chlorphenir/Phenyleph/Aspirin) 1 Each Tablet.eff 2 Tab PO Q4H PRN Isosorbide Mononitrate ER (Isosorbide Mononitrate) 30 Mg Tab.er.24h 30 Mg PO DAILY LAST FILLED 06-03-16 #30 Amlodipine Besylate 10 Mg Tablet 10 Mg PO DAILY LAST FILLED #90 04-21-16 Losartan Potassium 100 Mg Tablet 100 Mg PO DAILY LAST FILLED 06-03-16 #30 Metoprolol Succinate 100 Mg Tab.er.24h 100 Mg PO BID LAST FILLED 06-03-16 #60 Nitrostat (Nitroglycerin) 0.4 Mg Tab.subl 0.4 Mg SL UD PRN Atorvastatin Calcium 40 Mg Tablet 40 Mg PO HS LAST FILLED 03/19/16 #30 Plavix 75 Mg (Clopidogrel Bisulfate) 75 Mg Tablet 75 Mg PO DAILY LAST FILLED 02/01/16 #90 Instructions to patient/family Please see electonic discharge instructions given to patient. Clinical Quality Measures DVT/VTE Risk/Contraindication: Risk Factor Score Per Nursin RFS Level Per Nursing on Admit: 4+=Very High GEOVANY CORONADO DO Sep 04, 2016 10:35
[2016-09-04] MEDS ORDERED: CEFD300C3 PO (11:29)
[2016-09-04] MEDS ORDERED: PRED10TA22 PO (11:29)
[2016-09-04 12:14] VITALS: BP 172/91
--- OUTSIDE RECORDS SUMMARY | 2016-10-05 05:55 | XMS REPORT ---
Author Author NAVEEN DEXTER [facility] eClinicalWorks Address Unknown Phone Unavailable Care Team Providers Care Professor Of Architecture Name Role Phone NAVEEN DEXTER CP Unavailable Allergies, Adverse Reactions, Alerts Substance Reaction Event Type N.K.D.A. Info Not Available Non Drug Allergy Problems Problem Type Condition Code Onset Dates Condition Status Problem Essential hypertension I10 Active Problem History of leukemia Z85.6 Active Problem Atherosclerotic heart disease of [place] coronary artery without angina pectoris I25.10 Active Assessment Atherosclerotic heart disease of [place] coronary artery without angina pectoris I25.10 Active Assessment Routine adult health maintenance Z00.00 Active Assessment Essential hypertension I10 Active Medications Medication Code System Code Instructions Start Date End Date Status Dosage Nitroglycerin [facility] [address]-41 0.4 MG Sublingual 1 tab q 10 min x3 doses for chest pain Mar 14, 2015 as directed Metoprolol Succinate ER [facility] [address]-14 25 MG Orally Once a day Mar 14, 2015 1 tablet Atorvastatin Calcium [facility] [address]-88 40 MG Orally Once a day Mar 14, 2015 1 tablet Procedures Procedure Coding System Code Date COMPREHEN METABOLIC PANEL CPT-4 26701 Mar 14, 2015 ASSAY THYROID STIM HORMONE CPT-4 42537 Mar 14, 2015 COMPLETE CBC W/AUTO DIFF WBC CPT-4 92681 Mar 14, 2015 Office Visit, New Pt., Level 4 CPT-4 43939 Mar 14, 2015 ASSAY OF MAGNESIUM CPT-4 31033 Mar 14, 2015 LIPID PANEL CPT-4 97459 Mar 14, 2015 VENIPUNCT, ROUTINE* CPT-4 01110 Mar 14, 2015 ELECTROCARDIOGRAM, TRACING CPT-4 58285 Mar 14, 2015 Vital Signs Date/Time: Mar 14, 2015 Temperature 97.9 F Weight 203.6 lbs Height 69.5 in BMI 29.63 Index Blood Pressure Diastolic 102 mmHg Blood Pressure Systolic 178 mmHg Cardiac Monitoring Heart Rate 92 bpm Results Name Result Date Reference Range Unit Abnormality Flag T4 FREE ROUTINE VENIPUNCTURE MAGNESIUM, SERUM Summary Purpose eClinicalWorks Submission
--- OUTSIDE RECORDS SUMMARY | 2016-10-05 05:55 | XMS REPORT ---
Author KEDAR Ricardo [facility] eClinicalWorks Address Unknown Phone Unavailable Care Team Providers Care Computer Technology Trainer Name Role Phone KEDAR FREIRE CP Unavailable Allergies, Adverse Reactions, Alerts Substance Reaction Event Type N.K.D.A. Info Not Available Non Drug Allergy Problems Problem Type Condition Code Onset Dates Condition Status Assessment Atherosclerotic heart disease of [place] coronary artery without angina pectoris I25.10 Active Problem History of leukemia Z85.6 Active Assessment Hypertension I10 Active Problem CAD (coronary artery disease) I25.10 Active Problem Hyperlipemia E78.5 Active Problem Allergic rhinitis J30.9 Active Problem Atherosclerotic heart disease of [place] coronary artery without angina pectoris I25.10 Active Problem Essential hypertension I10 Active Problem Hypertension I10 Active Problem Hyperlipidemia E78.5 Active Medications Medication Code System Code Instructions Start Date End Date Status Dosage Metoprolol Succinate ER [facility] [address]-71 100 MG Orally Once a day Jun 27, 2015 1 tablet Nitroglycerin [facility] [address]-15 0.4 MG Sublingual 1 tab q 10 min x3 doses for chest pain Mar 14, 2015 as directed Plavix [facility] [address]-76 75 MG Orally Once a day 1 tablet Aspirin Adult Low Dose [facility] [address]-75 81 MG Orally Once a day 1 tablet Lisinopril [facility] [address]-34 5 MG Orally Once a day 1 tablet Lisinopril [facility] [address]-62 5 MG Orally Once a day Jun 27, 2015 1 tablet Atorvastatin Calcium [facility] [address]-25 40 MG Orally Once a day Mar 14, 2015 1 tablet Procedures Procedure Coding System Code Date Office Visit, Est Pt., Level 4 CPT-4 46369 Jun 27, 2015 Vital Signs Date/Time: Jun 27, 2015 Temperature 98.3 F Weight 215.0 lbs Height 69.5 in BMI 31.29 Index Blood Pressure Diastolic 98 mmHg Blood Pressure Systolic 170 mmHg Cardiac Monitoring Heart Rate 100 bpm Results No Known Results Summary Purpose eClinicalWorks Submission
--- OUTSIDE RECORDS SUMMARY | 2016-10-05 05:55 | XMS REPORT | Continuity of Care Document ---
Author Author [facility] Organization [facility] Address Unknown Phone Unavailable Care Team Providers Care Maintenance Machine Repairer Name Role Phone Unverified, Unverified PCP Unavailable Source Comments Some departments are not documenting in the electronic medical record. If you do not see the information that you expected, contact Release of Information in the Health Information Management department at [phone] for further assistance in locating additional records.[facility] Active Allergies and Adverse Reactions Not on File Current Medications Not on file Active Problems Not on file Social History Tobacco Use Types Packs/Day Years Used Date Never Assessed Plan of Care Health Maintenance Due Date Last Done Comments Hepatitis C Screening 1956 Physical (Comprehensive) 1963 Exam Pertussis Vaccine 1967 Tetanus Vaccine 1973 Colorectal Cancer 2006 Screening Shingles Vaccine 2016 Influenza Vaccine 01/30/2017 Results from Last 3 Months Not on file
--- OUTSIDE RECORDS SUMMARY | 2016-10-05 05:55 | XMS REPORT ---
Author KEDAR Ricardo [facility] eClinicalWorks Address Unknown Phone Unavailable Care Team Providers Care Database Coordinator Name Role Phone KEDAR FREIRE CP Unavailable Allergies, Adverse Reactions, Alerts Substance Reaction Event Type N.K.D.A. Info Not Available Non Drug Allergy Problems Problem Type Condition Code Onset Dates Condition Status Assessment Essential hypertension I10 Active Problem History of leukemia Z85.6 Active Assessment Atherosclerotic heart disease of [place] coronary artery without angina pectoris I25.10 Active Problem GERD (gastroesophageal reflux disease) K21.9 Active Problem Allergic rhinitis J30.9 Active Problem COPD (chronic obstructive pulmonary disease) J44.9 Active Problem Atherosclerotic heart disease of [place] coronary artery without angina pectoris I25.10 Active Problem Essential hypertension I10 Active Problem CAD (coronary artery disease) I25.10 Active Problem Hyperlipidemia E78.5 Active Assessment COPD (chronic obstructive pulmonary disease) J44.9 Active Assessment CAD (coronary artery disease) I25.10 Active Assessment History of leukemia Z85.6 Active Medications Medication Code System Code Instructions Start Date End Date Status Dosage Lisinopril [facility] [address]-55 40 Orally Once a day Jun 27, 2015 1 tablet Nitroglycerin [facility] [address]-68 0.4 MG Sublingual 1 tab q 10 min x3 doses for chest pain Mar 14, 2015 as directed Metoprolol Succinate ER [facility] [address]-37 100 MG Orally Once a day Jun 27, 2015 1 tablet Aspirin Adult Low Dose [facility] [address]-02 81 MG Orally Once a day 1 tablet ProAir HFA [facility] [address]-85 108 (90 Base) MCG/ACT Inhalation every 6 hrs September 25, 2015 1-2 puffs as needed Plavix [facility] [address]-25 75 MG Orally Once a day 1 tablet Atorvastatin Calcium [facility] [address]-34 40 MG Orally Once a day Mar 14, 2015 1 tablet Procedures Procedure Coding System Code Date Office Visit, Est Pt., Level 4 CPT-4 21506 September 27, 2015 Vital Signs Date/Time: September 27, 2015 Temperature 98.3 F Weight 239.2 lbs Height 69.5 in BMI 34.81 Index Blood Pressure Diastolic 104 mmHg Blood Pressure Systolic 175 mmHg Cardiac Monitoring Heart Rate 92 bpm Results No Known Results Summary Purpose eClinicalWorks Submission
--- OUTSIDE RECORDS SUMMARY | 2016-10-05 05:55 | XMS REPORT ---
Author KEDAR Ricardo [facility] eClinicalWorks Address Unknown Phone Unavailable Care Team Providers Care Cotton Ball Machine Tender Name Role Phone KEDAR FREIRE CP Unavailable Allergies No Known Allergies Problems Problem Type Condition Code Onset Dates Condition Status Problem History of leukemia Z85.6 Active Problem GERD (gastroesophageal reflux disease) K21.9 Active Problem Allergic rhinitis J30.9 Active Problem COPD (chronic obstructive pulmonary disease) J44.9 Active Problem Atherosclerotic heart disease of [place] coronary artery without angina pectoris I25.10 Active Problem Essential hypertension I10 Active Problem CAD (coronary artery disease) I25.10 Active Problem Hyperlipidemia E78.5 Active Medications Medication Code System Code Instructions Start Date End Date Status Dosage Metoprolol Succinate ER [facility] [place] 2[place] [address]-74 100 MG Orally Once a day Jun 27, 2015 1 tablet Results No Known Results Summary Purpose eClinicalWorks Submission
--- OUTSIDE RECORDS SUMMARY | 2016-10-05 05:55 | XMS REPORT ---
Author KEDAR Ricardo [facility] eClinicalWorks Address Unknown Phone Unavailable Care Team Providers Care Horticulture Superintendent Name Role Phone KEDAR FREIRE CP Unavailable Allergies No Known Allergies Problems Problem Type Condition Code Onset Dates Condition Status Problem History of leukemia Z85.6 Active Assessment COPD (chronic obstructive pulmonary disease) J44.9 Active Problem GERD (gastroesophageal reflux disease) K21.9 Active Problem Allergic rhinitis J30.9 Active Problem COPD (chronic obstructive pulmonary disease) J44.9 Active Problem Atherosclerotic heart disease of [place] coronary artery without angina pectoris I25.10 Active Problem Essential hypertension I10 Active Problem CAD (coronary artery disease) I25.10 Active Problem Hyperlipidemia E78.5 Active Medications No Known Medications Results No Known Results Summary Purpose eClinicalWorks Submission
--- OUTSIDE RECORDS SUMMARY | 2016-10-05 05:55 | XMS REPORT ---
Author Author NAVEEN DEXTER Organization eClinicalWorks Address Unknown Phone Unavailable Care Team Providers Care Quarter Section Ironer Name Role Phone NAVEEN DEXTER CP Unavailable Allergies No Known Allergies Problems Problem Type Condition Code Onset Dates Condition Status Problem Hyperlipidemia E78.5 Active Problem Atherosclerotic heart disease of [place] coronary artery without angina pectoris I25.10 Active Problem Allergic rhinitis J30.9 Active Problem Essential hypertension I10 Active Problem History of leukemia Z85.6 Active Medications No Known Medications Results No Known Results Summary Purpose eClinicalWorks Submission
--- OUTSIDE RECORDS SUMMARY | 2016-10-05 05:55 | XMS REPORT ---
Author KEDAR Ricardo [facility] eClinicalWorks Address Unknown Phone Unavailable Care Team Providers Care Digital Strategy Director Name Role Phone KEDAR FREIRE CP Unavailable Allergies No Known Allergies Problems Problem Type Condition Code Onset Dates Condition Status Problem History of leukemia Z85.6 Active Problem GERD (gastroesophageal reflux disease) K21.9 Active Problem Allergic rhinitis J30.9 Active Problem COPD (chronic obstructive pulmonary disease) J44.9 Active Problem Atherosclerotic heart disease of [place] coronary artery without angina pectoris I25.10 Active Problem Essential hypertension I10 Active Problem CAD (coronary artery disease) I25.10 Active Problem Hyperlipidemia E78.5 Active Medications No Known Medications Results No Known Results Summary Purpose eClinicalWorks Submission
--- OUTSIDE RECORDS SUMMARY | 2016-10-05 05:56 | XMS REPORT ---
Author KEDAR Ricardo [facility] eClinicalWorks Address Unknown Phone Unavailable Care Team Providers Care Hand Cigar Maker Name Role Phone KEDAR FREIRE CP Unavailable Allergies, Adverse Reactions, Alerts Substance Reaction Event Type N.K.D.A. Info Not Available Non Drug Allergy Problems Problem Type Condition Code Onset Dates Condition Status Assessment Upper respiratory infection J06.9 Active Problem History of leukemia Z85.6 Active Assessment Essential hypertension I10 Active Assessment Bronchitis J40 Active Problem CAD (coronary artery disease) I25.10 Active Problem Hyperlipemia E78.5 Active Problem Allergic rhinitis J30.9 Active Problem Atherosclerotic heart disease of [place] coronary artery without angina pectoris I25.10 Active Problem Essential hypertension I10 Active Problem Hypertension I10 Active Problem Hyperlipidemia E78.5 Active Medications Medication Code System Code Instructions Start Date End Date Status Dosage Metoprolol Succinate ER [facility] [address]-17 50 MG Orally Once a day May 16, 2015 1 tablet Nitroglycerin [facility] [address]-86 0.4 MG Sublingual 1 tab q 10 min x3 doses for chest pain Mar 14, 2015 as directed Atorvastatin Calcium [facility] [address]-07 40 MG Orally Once a day Mar 14, 2015 1 tablet Amoxicillin [facility] [address]-93 875 MG Orally Twice a day Jun 13, 2015 Jun 23, 2015 1 tablet Procedures Procedure Coding System Code Date THER/PROPH/DIAG INJ, SC/IM CPT-4 46597 Jun 13, 2015 DEXAMETHASONE 20MG/5 ML (PER 1 MG) CPT-4 J1100 Jun 13, 2015 DEPO MEDROL 40 MG/ML CPT-4 J1030 Jun 13, 2015 Office Visit, Est Pt., Level 4 CPT-4 04624 Jun 13, 2015 Vital Signs Date/Time: Jun 13, 2015 Temperature 98.7 F Weight 217.1 lbs Height 69.5 in BMI 31.60 Index Blood Pressure Diastolic 100 mmHg Blood Pressure Systolic 152 mmHg Cardiac Monitoring Heart Rate 120 bpm Results No Known Results Summary Purpose eClinicalWorks Submission
--- OUTSIDE RECORDS SUMMARY | 2016-10-05 05:57 | XMS REPORT ---
Author KEDAR Ricardo [facility] eClinicalWorks Address Unknown Phone Unavailable Care Team Providers Care Legal Counsel Name Role Phone KEDAR FREIRE CP Unavailable Allergies No Known Allergies Problems Problem Type Condition Code Onset Dates Condition Status Problem Essential hypertension I10 Active Problem History of leukemia Z85.6 Active Problem Allergic rhinitis J30.9 Active Problem CAD (coronary artery disease) I25.10 Active Problem GERD (gastroesophageal reflux disease) K21.9 Active Problem Hyperlipidemia E78.5 Active Problem Atherosclerotic heart disease of [place] coronary artery without angina pectoris I25.10 Active Problem Hyperlipemia E78.5 Active Problem Hypertension I10 Active Medications Medication Code System Code Instructions Start Date End Date Status Dosage Lisinopril [facility] [address]-45 40 Orally Once a day Jun 27, 2015 1 tablet ProAir HFA [facility] [address]-16 108 (90 Base) MCG/ACT Inhalation every 6 hrs September 25, 2015 1-2 puffs as needed Plavix [facility] [address]-36 75 MG Orally Once a day 1 tablet Metoprolol Succinate ER [facility] [address]-29 100 MG Orally Once a day Jun 27, 2015 1 tablet Atorvastatin Calcium [facility] [address]-59 40 MG Orally Once a day Mar 14, 2015 1 tablet Nitroglycerin [facility] [address]-26 0.4 MG Sublingual 1 tab q 10 min x3 doses for chest pain Mar 14, 2015 as directed Aspirin Adult Low Dose [facility] [address]-51 81 MG Orally Once a day 1 tablet Results No Known Results Summary Purpose eClinicalWorks Submission
--- OUTSIDE RECORDS SUMMARY | 2016-10-05 05:57 | XMS REPORT ---
Author Author NAVEEN DEXTER [facility] [place] eClinicalWorks Address Unknown Phone Unavailable Care Team Providers Care Business Representative Name Role Phone NAVEEN DEXTER CP Unavailable Allergies, Adverse Reactions, Alerts Substance Reaction Event Type N.K.D.A. Info Not Available Non Drug Allergy Problems Problem Type Condition Code Onset Dates Condition Status Problem Atherosclerotic heart disease of [place] coronary artery without angina pectoris I25.10 Active Problem Essential hypertension I10 Active Problem Hyperlipidemia E78.5 Active Assessment Hyperlipidemia E78.5 Active Problem History of leukemia Z85.6 Active Assessment Essential hypertension I10 Active Medications Medication Code System Code Instructions Start Date End Date Status Dosage Metoprolol Succinate ER [facility] [address]-98 25 MG Orally Once a day Mar 14, 2015 1 tablet Nitroglycerin [facility] [address]-33 0.4 MG Sublingual 1 tab q 10 min x3 doses for chest pain Mar 14, 2015 as directed Atorvastatin Calcium [facility] [address]-15 40 MG Orally Once a day Mar 14, 2015 1 tablet Procedures Procedure Coding System Code Date Office Visit, Est Pt., Level 3 CPT-4 37256 Apr 16, 2015 Vital Signs Date/Time: Apr 16, 2015 Temperature 98.6 F Weight 204.6 lbs Height 69.5 in BMI 29.78 Index Blood Pressure Diastolic 92 mmHg Blood Pressure Systolic 144 mmHg Cardiac Monitoring Heart Rate 84 bpm Results No Known Results Summary Purpose eClinicalWorks Submission
--- OUTSIDE RECORDS SUMMARY | 2016-10-05 05:57 | XMS REPORT ---
Author NAVEEN Hastings [facility] eClinicalWorks Address Unknown Phone Unavailable Care Team Providers Care Soaking Pit Operator Name Role Phone NAVEEN DEXTER CP Unavailable Allergies, Adverse Reactions, Alerts Substance Reaction Event Type N.K.D.A. Info Not Available Non Drug Allergy Problems Problem Type Condition Code Onset Dates Condition Status Problem Hyperlipidemia E78.5 Active Problem Atherosclerotic heart disease of [place] coronary artery without angina pectoris I25.10 Active Problem Allergic rhinitis J30.9 Active Assessment Essential hypertension I10 Active Assessment Allergic rhinitis J30.9 Active Problem Essential hypertension I10 Active Problem History of leukemia Z85.6 Active Medications Medication Code System Code Instructions Start Date End Date Status Dosage Atorvastatin Calcium [facility] [address]-83 40 MG Orally Once a day Mar 14, 2015 1 tablet Nitroglycerin [facility] [address]-32 0.4 MG Sublingual 1 tab q 10 min x3 doses for chest pain Mar 14, 2015 as directed Metoprolol Succinate ER [facility] [address]-71 50 MG Orally Once a day May 16, 2015 1 tablet PredniSONE [facility] [address]-20 10 MG Orally Once a day May 16, 2015 May 21, 2015 as directed Procedures Procedure Coding System Code Date Office Visit, Est Pt., Level 3 CPT-4 27126 May 16, 2015 Vital Signs Date/Time: May 16, 2015 Temperature 98.6 F Weight 207.4 lbs Height 69.5 in BMI 30.19 Index Blood Pressure Diastolic 92 mmHg Blood Pressure Systolic 170 mmHg Cardiac Monitoring Heart Rate 100 bpm Results No Known Results Summary Purpose eClinicalWorks Submission
--- OUTSIDE RECORDS SUMMARY | 2016-10-05 05:57 | XMS REPORT | Continuity of Care Document ---
Author Author [facility] Organization [facility] Address Unknown Phone Unavailable Allergies Active Description Code Type Severity Reaction Onset Reported/Identified Relationship to Patient Clinical Status Yes No Known Drug Allergies [id number] Drug Allergy Unknown N/ A 09/23/2015 Medications Problems Date Dx Coded Attending Type Code Diagnosis Diagnosed By 07/28/2012 Ot 305.1 TOBACCO USE DISORDER 07/28/2012 Ot 401.9 HYPERTENSION NOS 07/28/2012 Ot 414.01 CORONARY ATHEROSCLEROSIS OF [place] CORON 07/28/2012 Ot 785.0 TACHYCARDIA NOS 07/28/2012 Ot 786.59 CHEST PAIN NEC 07/28/2012 Ot V10.69 HX OF LEUKEMIA NEC 07/28/2012 Ot V45.79 ACQRD ABSENCE OF OTH ORGAN 04/04/2015 Ot 272.4 04/04/2015 Ot 414.01 04/04/2015 Ot V58.69 04/04/2015 Ot 272.4 04/04/2015 Ot 414.01 04/04/2015 Ot V58.69 04/04/2015 Ot 272.4 04/04/2015 Ot 414.00 04/04/2015 Ot V58.69 04/04/2015 UMAIR WALTERS PRINTING SCREEN ASSEMBLER Ot 272.4 04/04/2015 BAIUMAIR ANDERSON PRINTING SCREEN ASSEMBLER Ot 414.01 04/04/2015 BAIUMAIR ANDERSON PRINTING SCREEN ASSEMBLER Ot V58.69 06/14/2015 Ot 272.4 06/14/2015 Ot 414.01 06/14/2015 Ot V58.69 06/14/2015 Ot 272.4 06/14/2015 Ot 414.00 06/14/2015 Ot V58.69 06/14/2015 UMAIR WALTERS PRINTING SCREEN ASSEMBLER Ot 272.4 06/14/2015 BAIUMAIR ANDERSON PRINTING SCREEN ASSEMBLER Ot 414.01 06/14/2015 BAIUMAIR ANDERSON PRINTING SCREEN ASSEMBLER Ot V58.69 06/14/2015 MADELYN CARTER, RANDI Armstrong Ot Z02.71 06/14/2015 Ot 272.4 06/14/2015 Ot 414.01 06/14/2015 Ot V58.69 06/14/2015 Ot 272.4 06/14/2015 Ot 414.00 06/14/2015 Ot V58.69 06/14/2015 BAICHANTELL ANDERSONHER L PRINTING SCREEN ASSEMBLER Ot 272.4 06/14/2015 BAICHANTELL ANDERSONHER L PRINTING SCREEN ASSEMBLER Ot 414.01 06/14/2015 BAIUMAIR ANDERSON L PRINTING SCREEN ASSEMBLER Ot V58.69 06/14/2015 MADELYN CARTER, RANDI Armstrong Ot Z02.71 06/16/2015 JEAN CARTER FACC, ALI FACP CCDS Ot E78.5 HYPERLIPIDEMIA, UNSPECIFIED 06/16/2015 JEAN CARTER FACC, ALI FACP CCDS Ot F17.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, CHEWING TOBACCO, UN 06/16/2015 JEAN CARTER FACC, ALI FACP CCDS Ot I21.19 STEMI INVOLVING OTH CORONARY ARTERY OF I 06/16/2015 JEAN CARTER FACC, ALI FACP CCDS Ot I25.10 ATHSCL HEART DISEASE OF [place] CORONARY 06/16/2015 JEAN CARTER FACC, ALI FACP CCDS Ot Z91.19 PATIENT'S NONCOMPLIANCE W OT MEDICAL TR 06/27/2015 Ot 272.4 06/27/2015 Ot 414.00 06/27/2015 Ot V58.69 06/27/2015 UMAIR WALTERS L PRINTING SCREEN ASSEMBLER Ot 272.4 06/27/2015 BAIJUSTIN UMAIR L PRINTING SCREEN ASSEMBLER Ot 414.01 06/27/2015 UMAIR WALTERS L PRINTING SCREEN ASSEMBLER Ot V58.69 06/27/2015 RANDI JOSHI MD Ot Z02.71 07/30/2015 Ot 272.4 07/30/2015 Ot 414.00 07/30/2015 Ot V58.69 07/30/2015 BAIMA UMAIR L PRINTING SCREEN ASSEMBLER Ot 272.4 07/30/2015 BAIMA UMAIR L PRINTING SCREEN ASSEMBLER Ot 414.01 07/30/2015 BAIMA UAMIR L PRINTING SCREEN ASSEMBLER Ot V58.69 07/30/2015 RANDI JOSHI MD Ot Z02.71 07/30/2015 UMAIR WALTERS L PRINTING SCREEN ASSEMBLER Ot E78.5 07/30/2015 ROMEO UMAIR L PRINTING SCREEN ASSEMBLER Ot I10 07/30/2015 BAIUMAIR ANDERSON L PRINTING SCREEN ASSEMBLER Ot I25.10 07/30/2015 UMAIR WALTERS L PRINTING SCREEN ASSEMBLER Ot Z72.0 09/24/2015 BAIMACHANTELLUMAIR L PRINTING SCREEN ASSEMBLER Ot E78.5 HYPERLIPIDEMIA, UNSPECIFIED 09/24/2015 BAIMA UMAIR L PRINTING SCREEN ASSEMBLER Ot I10 ESSENTIAL (PRIMARY) HYPERTENSION 09/24/2015 BAIMA UMAIR L PRINTING SCREEN ASSEMBLER Ot I25.10 ATHSCL HEART DISEASE OF [place] CORONARY 09/24/2015 BAICHANTELL ANDERSONHER L PRINTING SCREEN ASSEMBLER Ot L73.9 FOLLICULAR DISORDER, UNSPECIFIED 09/24/2015 BAIMAUMAIR L PRINTING SCREEN ASSEMBLER Ot E78.5 HYPERLIPIDEMIA, UNSPECIFIED 09/24/2015 BAIMA UMAIR L PRINTING SCREEN ASSEMBLER Ot I10 ESSENTIAL (PRIMARY) HYPERTENSION 09/24/2015 BAIMA UMAIR L PRINTING SCREEN ASSEMBLER Ot I25.10 ATHSCL HEART DISEASE OF [place] CORONARY 09/24/2015 UMAIR WALTERS L PRINTING SCREEN ASSEMBLER Ot Z72.0 TOBACCO USE 09/25/2015 UMAIR WALTERS L PRINTING SCREEN ASSEMBLER Ot E78.5 HYPERLIPIDEMIA, UNSPECIFIED 09/25/2015 BAIMAUMAIR L PRINTING SCREEN ASSEMBLER Ot I10 ESSENTIAL (PRIMARY) HYPERTENSION 09/25/2015 BAIMA UMAIR L PRINTING SCREEN ASSEMBLER Ot I25.10 ATHSCL HEART DISEASE OF [place] CORONARY 09/25/2015 UMAIR WALTERS L PRINTING SCREEN ASSEMBLER Ot Z72.0 TOBACCO USE 09/25/2015 UMAIR WALTERS L PRINTING SCREEN ASSEMBLER Ot E78.5 HYPERLIPIDEMIA, UNSPECIFIED 09/25/2015 BAIMA UMAIR L PRINTING SCREEN ASSEMBLER Ot I10 ESSENTIAL (PRIMARY) HYPERTENSION 09/25/2015 BAIUMAIR ANDERSON L PRINTING SCREEN ASSEMBLER Ot I25.10 ATHSCL HEART DISEASE OF [place] CORONARY 09/25/2015 BAIUMAIR ANDERSON L PRINTING SCREEN ASSEMBLER Ot L73.9 FOLLICULAR DISORDER, UNSPECIFIED 09/25/2015 ABRIL CARTER, COLEMAN Armstrong Ot C91.40 HAIRY CELL LEUKEMIA NOT HAVING ACHIEVED 09/25/2015 ABRIL CARTER, COLEMAN Armstrong Ot E78.0 PURE HYPERCHOLESTEROLEMIA 09/25/2015 COLEMAN SAMUELS MD Ot E78.5 HYPERLIPIDEMIA, UNSPECIFIED 09/25/2015 COLEMAN SAMUELS MD Ot I10 ESSENTIAL (PRIMARY) HYPERTENSION 09/25/2015 COLEMAN SAMUELS MD Ot I25.10 ATHSCL HEART DISEASE OF [place] CORONARY 09/25/2015 COLEMAN SAMUELS MD Ot I25.2 OLD MYOCARDIAL INFARCTION 09/25/2015 COLEMAN SAMUELS MD Ot R06.00 DYSPNEA, UNSPECIFIED 09/25/2015 COLEMAN SAMUELS MD Ot R07.89 OTHER CHEST PAIN 09/25/2015 COLEMAN SAMUELS MD Ot Z90.81 ACQUIRED ABSENCE OF SPLEEN 09/25/2015 COLEMAN SAMUELS MD Ot Z91.14 PATIENT'S OTHER NONCOMPLIANCE WITH MEDIC 09/25/2015 COLEMAN SAMUELS MD Ot Z91.19 PATIENT'S NONCOMPLIANCE W OTH MEDICAL TR 09/25/2015 COLEMAN SAMUELS MD Ot Z95.5 PRESENCE OF CORONARY ANGIOPLASTY IMPLANT 11/17/2015 Ot 272.4 HYPERLIPIDEMIA NEC/NOS 11/17/2015 Ot 414.00 CORON ATHEROSCLER NOS TYPE VESSEL, NATIV 11/17/2015 Ot V58.69 OTH MED,LT,CURRENT USE 11/17/2015 BAIMA, UMAIR L PRINTING SCREEN ASSEMBLER Ot 272.4 HYPERLIPIDEMIA NEC/NOS 11/17/2015 BAIMA, UMAIR L PRINTING SCREEN ASSEMBLER Ot 414.01 CORONARY ATHEROSCLEROSIS OF [place] CORON 11/17/2015 BAIMA, UMAIR L PRINTING SCREEN ASSEMBLER Ot V58.69 OTH MED,LT,CURRENT USE 11/17/2015 MADELYN CARTER, RANDI Armstrong Ot Z02.71 ENCOUNTER FOR DISABILITY DETERMINATION 11/17/2015 BAIMA, UMAIR L PRINTING SCREEN ASSEMBLER Ot E78.5 HYPERLIPIDEMIA, UNSPECIFIED 11/17/2015 BAIMA, UMAIR L PRINTING SCREEN ASSEMBLER Ot I10 ESSENTIAL (PRIMARY) HYPERTENSION 11/17/2015 BAIMA, UMAIR L PRINTING SCREEN ASSEMBLER Ot I25.10 ATHSCL HEART DISEASE OF [place] CORONARY 11/17/2015 BAIMA, UMAIR L PRINTING SCREEN ASSEMBLER Ot Z72.0 TOBACCO USE 11/17/2015 BAIMA, UMAIR L PRINTING SCREEN ASSEMBLER Ot E78.5 HYPERLIPIDEMIA, UNSPECIFIED 11/17/2015 BAIMA, UMAIR L PRINTING SCREEN ASSEMBLER Ot I10 ESSENTIAL (PRIMARY) HYPERTENSION 11/17/2015 BAIMA, UMAIR L PRINTING SCREEN ASSEMBLER Ot I25.10 ATHSCL HEART DISEASE OF [place] CORONARY 11/17/2015 BAIMA, UMAIR L PRINTING SCREEN ASSEMBLER Ot L73.9 FOLLICULAR DISORDER, UNSPECIFIED 11/17/2015 SUMAN MORROW DO Ot J44.1 CHRONIC OBSTRUCTIVE PULMONARY DISEASE W 11/17/2015 Ot 272.4 HYPERLIPIDEMIA NEC/NOS 11/17/2015 Ot 414.00 CORON ATHEROSCLER NOS TYPE VESSEL, NATIV 11/17/2015 Ot V58.69 OTH MED,LT,CURRENT USE 11/17/2015 BAIMA, UMAIR L PRINTING SCREEN ASSEMBLER Ot 272.4 HYPERLIPIDEMIA NEC/NOS 11/17/2015 BAIMA, UMAIR L PRINTING SCREEN ASSEMBLER Ot 414.01 CORONARY ATHEROSCLEROSIS OF [place] CORON 11/17/2015 BAIMA, UMAIR L PRINTING SCREEN ASSEMBLER Ot V58.69 OTH MED,LT,CURRENT USE 11/17/2015 MADELYN CARTER, RANDI Armstrong Ot Z02.71 ENCOUNTER FOR DISABILITY DETERMINATION 11/17/2015 BAIMA, UMAIR L PRINTING SCREEN ASSEMBLER Ot E78.5 HYPERLIPIDEMIA, UNSPECIFIED 11/17/2015 BAIMA, UMAIR L PRINTING SCREEN ASSEMBLER Ot I10 ESSENTIAL (PRIMARY) HYPERTENSION 11/17/2015 BAIMA, UMAIR L PRINTING SCREEN ASSEMBLER Ot I25.10 ATHSCL HEART DISEASE OF [place] CORONARY 11/17/2015 BAIMA, UMAIR L PRINTING SCREEN ASSEMBLER Ot Z72.0 TOBACCO USE 11/17/2015 BAIMA, UMAIR L PRINTING SCREEN ASSEMBLER Ot E78.5 HYPERLIPIDEMIA, UNSPECIFIED 11/17/2015 BAIMA, UMAIR L PRINTING SCREEN ASSEMBLER Ot I10 ESSENTIAL (PRIMARY) HYPERTENSION 11/17/2015 BAIMA, UMAIR L PRINTING SCREEN ASSEMBLER Ot I25.10 ATHSCL HEART DISEASE OF [place] CORONARY 11/17/2015 BAIMA, UMAIR L PRINTING SCREEN ASSEMBLER Ot L73.9 FOLLICULAR DISORDER, UNSPECIFIED 11/19/2015 SUMAN MORROW DO Ot J44.1 CHRONIC OBSTRUCTIVE PULMONARY DISEASE W 12/16/2015 SUMAN MORROW DO Ot J44.1 CHRONIC OBSTRUCTIVE PULMONARY DISEASE W 12/19/2015 BASIM GUILLEN DO Ot E66.9 OBESITY, UNSPECIFIED 12/19/2015 BASIM GUILLEN DO Ot F17.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, CHEWING TOBACCO, UN 12/19/2015 BASIM GUILLEN DO Ot I25.10 ATHSCL HEART DISEASE OF [place] CORONARY 02/26/2016 BASIM GUILLEN DO Ot G47.33 OBSTRUCTIVE SLEEP APNEA (ADULT) (PEDIATR 03/03/2016 BASIM GUILLEN DO Ot G47.33 OBSTRUCTIVE SLEEP APNEA (ADULT) (PEDIATR 03/24/2016 JEAN CARTER FACC, LETICIA FACP CCDS Ot C91.40 HAIRY CELL LEUKEMIA NOT HAVING ACHIEVED 03/24/2016 JEAN CARTER FACC, LETICIA FACP CCDS Ot E78.00 PURE HYPERCHOLESTEROLEMIA, UNSPECIFIED 03/24/2016 JEAN CARTER FACC, ALI FACP CCDS Ot E78.5 HYPERLIPIDEMIA, UNSPECIFIED 03/24/2016 JEAN CARTER FACC, ALI FACP CCDS Ot F17.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, CHEWING TOBACCO, UN 03/24/2016 JEAN CARTER FACC, ALI FACP CCDS Ot I10 ESSENTIAL (PRIMARY) HYPERTENSION 03/24/2016 JEAN CARTER FACC, LETICIA FACP CCDS Ot I25.10 ATHSCL HEART DISEASE OF [place] CORONARY 03/24/2016 JEAN CARTER FACC, LETICIA FACP CCDS Ot J44.9 CHRONIC OBSTRUCTIVE PULMONARY DISEASE, U 03/24/2016 JEAN CARTER FACC, ALI FACP CCDS Ot Z91.19 PATIENT'S NONCOMPLIANCE W [facility] 04/02/2016 UMAIR WALTERS PRINTING SCREEN ASSEMBLER Ot E78.5 HYPERLIPIDEMIA, UNSPECIFIED 04/02/2016 UMAIR WALTERS L PRINTING SCREEN ASSEMBLER Ot F17.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, CHEWING TOBACCO, UN 04/02/2016 UMAIR WALTERS L PRINTING SCREEN ASSEMBLER Ot I10 ESSENTIAL (PRIMARY) HYPERTENSION 04/02/2016 UMAIR WALTERS L PRINTING SCREEN ASSEMBLER Ot I25.10 ATHSCL HEART DISEASE OF [place] CORONARY 04/02/2016 UMAIR WALTERS PRINTING SCREEN ASSEMBLER Ot I25.2 OLD MYOCARDIAL INFARCTION 04/02/2016 UMAIR WALTERS PRINTING SCREEN ASSEMBLER Ot Z23 ENCOUNTER FOR IMMUNIZATION 04/02/2016 UMAIR WALTERS PRINTING SCREEN ASSEMBLER Ot 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 04/02/2016 UMAIR WALTERS L PRINTING SCREEN ASSEMBLER Ot Z91.19 PATIENT'S NONCOMPLIANCE W [facility] 04/02/2016 UMAIR WALTERS PRINTING SCREEN ASSEMBLER Ot Z95.5 PRESENCE OF CORONARY ANGIOPLASTY IMPLANT 04/07/2016 UMAIR WALTERS L PRINTING SCREEN ASSEMBLER Ot I25.10 ATHSCL HEART DISEASE OF [place] CORONARY 04/08/2016 UMAIR WALTERS L PRINTING SCREEN ASSEMBLER Ot I25.10 ATHSCL HEART DISEASE OF [place] CORONARY 04/08/2016 UMAIR WALTERS L PRINTING SCREEN ASSEMBLER Ot E78.5 HYPERLIPIDEMIA, UNSPECIFIED 04/08/2016 BAIMA, UMAIR L PRINTING SCREEN ASSEMBLER Ot I10 ESSENTIAL (PRIMARY) HYPERTENSION 04/08/2016 BAIMA, UMAIR L PRINTING SCREEN ASSEMBLER Ot I25.10 ATHSCL HEART DISEASE OF [place] CORONARY 04/08/2016 BAIMA UMAIR L PRINTING SCREEN ASSEMBLER Ot R10.31 RIGHT LOWER QUADRANT PAIN 04/15/2016 BAIMA, UMAIR L PRINTING SCREEN ASSEMBLER Ot E78.5 HYPERLIPIDEMIA, UNSPECIFIED 04/15/2016 BAIMA, UMAIR L PRINTING SCREEN ASSEMBLER Ot F17.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, CHEWING TOBACCO, UN 04/15/2016 BAIMA, UMAIR L PRINTING SCREEN ASSEMBLER Ot I10 ESSENTIAL (PRIMARY) HYPERTENSION 04/15/2016 BAIMA, UMAIR L PRINTING SCREEN ASSEMBLER Ot I25.10 ATHSCL HEART DISEASE OF [place] CORONARY 04/15/2016 BAIMA UMAIR L PRINTING SCREEN ASSEMBLER Ot I25.2 OLD MYOCARDIAL INFARCTION 04/15/2016 BAIMA, UMAIR L PRINTING SCREEN ASSEMBLER Ot Z79.899 OTHER GROUP HOME (CURRENT) DRUG THERAPY 04/15/2016 BAIMA, UMAIR L PRINTING SCREEN ASSEMBLER Ot Z91.19 PATIENT'S NONCOMPLIANCE W [facility] 04/15/2016 BAIMA, UMAIR L PRINTING SCREEN ASSEMBLER Ot Z95.5 PRESENCE OF CORONARY ANGIOPLASTY IMPLANT 04/17/2016 BAIMA, UMAIR L PRINTING SCREEN ASSEMBLER Ot E78.5 HYPERLIPIDEMIA, UNSPECIFIED 04/17/2016 BAIMA, UMAIR L PRINTING SCREEN ASSEMBLER Ot F17.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, CHEWING TOBACCO, UN 04/17/2016 BAIMA, UMAIR L PRINTING SCREEN ASSEMBLER Ot I10 ESSENTIAL (PRIMARY) HYPERTENSION 04/17/2016 BAIMA, UMAIR L PRINTING SCREEN ASSEMBLER Ot I25.10 ATHSCL HEART DISEASE OF [place] CORONARY 04/17/2016 BAIMA UMAIR L PRINTING SCREEN ASSEMBLER Ot I25.2 OLD MYOCARDIAL INFARCTION 04/17/2016 BAIMA, UMAIR L PRINTING SCREEN ASSEMBLER Ot 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 04/17/2016 BAIMA, UMAIR L PRINTING SCREEN ASSEMBLER Ot Z91.19 PATIENT'S NONCOMPLIANCE W [facility] 04/17/2016 BAIMA, UMAIR L PRINTING SCREEN ASSEMBLER Ot Z95.5 PRESENCE OF CORONARY ANGIOPLASTY IMPLANT 04/29/2016 BAIMA, UMAIR L PRINTING SCREEN ASSEMBLER Ot E78.5 HYPERLIPIDEMIA, UNSPECIFIED 04/29/2016 BAIMA, UMAIR L PRINTING SCREEN ASSEMBLER Ot I10 ESSENTIAL (PRIMARY) HYPERTENSION 04/29/2016 LORUMAIR ANDERSON PRINTING SCREEN ASSEMBLER Ot I25.10 ATHSCL HEART DISEASE OF [place] CORONARY 04/29/2016 UMAIR WALTERS PRINTING SCREEN ASSEMBLER Ot R10.31 RIGHT LOWER QUADRANT PAIN 05/28/2016 LORUMAIR ANDERSON PRINTING SCREEN ASSEMBLER Ot E78.5 HYPERLIPIDEMIA, UNSPECIFIED 05/28/2016 UMAIR WALTERS L PRINTING SCREEN ASSEMBLER Ot F17.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, CHEWING TOBACCO, UN 05/28/2016 ROMEO UMAIR L PRINTING SCREEN ASSEMBLER Ot I10 ESSENTIAL (PRIMARY) HYPERTENSION 05/28/2016 UMAIR WALTERS PRINTING SCREEN ASSEMBLER Ot I25.10 ATHSCL HEART DISEASE OF [place] CORONARY 05/28/2016 UMAIR WALTERS PRINTING SCREEN ASSEMBLER Ot I25.2 OLD MYOCARDIAL INFARCTION 05/28/2016 LORJUSTIN UMAIR Argueta PRINTING SCREEN ASSEMBLER Ot Z23 ENCOUNTER FOR IMMUNIZATION 05/28/2016 ROMEO UMAIR Argueta PRINTING SCREEN ASSEMBLER Ot Z79.899 OTHER GROUP HOME (CURRENT) DRUG THERAPY 05/28/2016 LORUMAIR ANDERSON PRINTING SCREEN ASSEMBLER Ot Z91.19 PATIENT'S NONCOMPLIANCE W [facility] 05/28/2016 LORJUSTIN UMAIR Argueta PRINTING SCREEN ASSEMBLER Ot Z95.5 PRESENCE OF CORONARY ANGIOPLASTY IMPLANT 05/29/2016 TAMARA SORTO MD Ot E78.00 PURE HYPERCHOLESTEROLEMIA, UNSPECIFIED 05/29/2016 TAMARA SORTO MD Ot I10 ESSENTIAL (PRIMARY) HYPERTENSION 05/29/2016 TAMARA SORTO MD Ot I25.10 ATHSCL HEART DISEASE OF [place] CORONARY 05/29/2016 TAMARA SORTO MD Ot J44.9 CHRONIC OBSTRUCTIVE PULMONARY DISEASE, U 05/29/2016 TAMARA SORTO MD Ot R07.9 CHEST PAIN, UNSPECIFIED 05/29/2016 TAMARA SORTO MD Ot R42 DIZZINESS AND GIDDINESS 05/29/2016 TAMARA SORTO MD Ot Z87.891 PERSONAL HISTORY OF NICOTINE DEPENDENCE 05/29/2016 TAMARA SORTO MD Ot Z95.5 PRESENCE OF CORONARY ANGIOPLASTY IMPLANT 05/29/2016 TAMARA SORTO MD Ot E78.00 PURE HYPERCHOLESTEROLEMIA, UNSPECIFIED 05/29/2016 TAMARA SORTO MD Ot I10 ESSENTIAL (PRIMARY) HYPERTENSION 05/29/2016 TAMRAA SORTO MD Ot I25.10 ATHSCL HEART DISEASE OF [place] CORONARY 05/29/2016 NOREEN CARTER, TAMARA Enriquez Ot J44.9 CHRONIC OBSTRUCTIVE PULMONARY DISEASE, U 05/29/2016 NOREEN CARTER, TAMARA Enriquez Ot R07.9 CHEST PAIN, UNSPECIFIED 05/29/2016 TAMARA SORTO MD Ot R42 DIZZINESS AND GIDDINESS 05/29/2016 NOREEN CARTER, TAMARA Enriquez Ot Z87.891 PERSONAL HISTORY OF NICOTINE DEPENDENCE 05/29/2016 NOREEN CARTER, TAMARA Enriquez Ot Z95.5 PRESENCE OF CORONARY ANGIOPLASTY IMPLANT 07/29/2016 Ot 272.4 HYPERLIPIDEMIA NEC/NOS 07/29/2016 Ot 414.00 CORON ATHEROSCLER NOS TYPE VESSEL, NATIV 07/29/2016 Ot V58.69 OTH MED,LT,CURRENT USE 07/29/2016 BAIMA, UMAIR L PRINTING SCREEN ASSEMBLER Ot 272.4 HYPERLIPIDEMIA NEC/NOS 07/29/2016 BAIMA, UMAIR L PRINTING SCREEN ASSEMBLER Ot 414.01 CORONARY ATHEROSCLEROSIS OF [place] CORON 07/29/2016 BAIMA, UMAIR L PRINTING SCREEN ASSEMBLER Ot V58.69 OTH MED,LT,CURRENT USE 07/29/2016 MADELYN CARTER, RANDI Armstrong Ot Z02.71 ENCOUNTER FOR DISABILITY DETERMINATION 07/29/2016 BAIMA, UMAIR L PRINTING SCREEN ASSEMBLER Ot E78.5 HYPERLIPIDEMIA, UNSPECIFIED 07/29/2016 BAIMA, UMAIR L PRINTING SCREEN ASSEMBLER Ot I10 ESSENTIAL (PRIMARY) HYPERTENSION 07/29/2016 BAIMA, UMAIR L PRINTING SCREEN ASSEMBLER Ot I25.10 ATHSCL HEART DISEASE OF [place] CORONARY 07/29/2016 BAIMA, UMAIR L PRINTING SCREEN ASSEMBLER Ot Z72.0 TOBACCO USE 07/29/2016 BAIMA, UMAIR L PRINTING SCREEN ASSEMBLER Ot E78.5 HYPERLIPIDEMIA, UNSPECIFIED 07/29/2016 BAIMA, UMAIR L PRINTING SCREEN ASSEMBLER Ot I10 ESSENTIAL (PRIMARY) HYPERTENSION 07/29/2016 BAIMA, UMAIR L PRINTING SCREEN ASSEMBLER Ot I25.10 ATHSCL HEART DISEASE OF [place] CORONARY 07/29/2016 ROMEO UMAIR L PRINTING SCREEN ASSEMBLER Ot L73.9 FOLLICULAR DISORDER, UNSPECIFIED 07/29/2016 BASIM GUILLEN DO Ot E66.9 OBESITY, UNSPECIFIED 07/29/2016 BASIM GUILLEN DO Ot F17.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, CHEWING TOBACCO, UN 07/29/2016 BASIM GUILLEN DO Ot I25.10 ATHSCL HEART DISEASE OF [place] CORONARY 07/29/2016 BAIMA, UMAIR L PRINTING SCREEN ASSEMBLER Ot E78.5 HYPERLIPIDEMIA, UNSPECIFIED 07/29/2016 BAIMA, UMAIR L PRINTING SCREEN ASSEMBLER Ot I10 ESSENTIAL (PRIMARY) HYPERTENSION 07/29/2016 BAIMA, UMAIR L PRINTING SCREEN ASSEMBLER Ot I25.10 ATHSCL HEART DISEASE OF [place] CORONARY 07/29/2016 BAIMA, UMAIR L PRINTING SCREEN ASSEMBLER Ot R10.31 RIGHT LOWER QUADRANT PAIN 07/29/2016 BAIMA, UMAIR L PRINTING SCREEN ASSEMBLER Ot E78.5 HYPERLIPIDEMIA, UNSPECIFIED 07/29/2016 BAIMA, UMAIR L PRINTING SCREEN ASSEMBLER Ot I10 ESSENTIAL (PRIMARY) HYPERTENSION 07/29/2016 BAIMA, UMAIR L PRINTING SCREEN ASSEMBLER Ot I25.10 ATHSCL HEART DISEASE OF [place] CORONARY 07/29/2016 BAIMA, UMAIR L PRINTING SCREEN ASSEMBLER Ot R10.31 RIGHT LOWER QUADRANT PAIN 07/29/2016 Ot 272.4 HYPERLIPIDEMIA NEC/NOS 07/29/2016 Ot 414.00 CORON ATHEROSCLER NOS TYPE VESSEL, NATIV 07/29/2016 Ot V58.69 OTH MED,LT,CURRENT USE 07/29/2016 BAIMA, UMAIR L PRINTING SCREEN ASSEMBLER Ot 272.4 HYPERLIPIDEMIA NEC/NOS 07/29/2016 BAIMA, UMAIR L PRINTING SCREEN ASSEMBLER Ot 414.01 CORONARY ATHEROSCLEROSIS OF [place] CORON 07/29/2016 BAIMA, UMAIR L PRINTING SCREEN ASSEMBLER Ot V58.69 OTH MED,LT,CURRENT USE 07/29/2016 MADELYN CARTER, RANDI Armstrong Ot Z02.71 ENCOUNTER FOR DISABILITY DETERMINATION 07/29/2016 BAIMA, UMAIR L PRINTING SCREEN ASSEMBLER Ot E78.5 HYPERLIPIDEMIA, UNSPECIFIED 07/29/2016 BAIMA, UMAIR L PRINTING SCREEN ASSEMBLER Ot I10 ESSENTIAL (PRIMARY) HYPERTENSION 07/29/2016 BAIMA, UMAIR L PRINTING SCREEN ASSEMBLER Ot I25.10 ATHSCL HEART DISEASE OF [place] CORONARY 07/29/2016 BAIMA, UMAIR L PRINTING SCREEN ASSEMBLER Ot Z72.0 TOBACCO USE 07/29/2016 BAIMA, UMAIR L PRINTING SCREEN ASSEMBLER Ot E78.5 HYPERLIPIDEMIA, UNSPECIFIED 07/29/2016 BAIMA, UMAIR L PRINTING SCREEN ASSEMBLER Ot I10 ESSENTIAL (PRIMARY) HYPERTENSION 07/29/2016 BAIMA, UMAIR L PRINTING SCREEN ASSEMBLER Ot I25.10 ATHSCL HEART DISEASE OF [place] CORONARY 07/29/2016 BAIMA, UMAIR L PRINTING SCREEN ASSEMBLER Ot L73.9 FOLLICULAR DISORDER, UNSPECIFIED 07/29/2016 BASIM GUILLEN DO Ot E66.9 OBESITY, UNSPECIFIED 07/29/2016 BASIM GUILLEN DO Ot F17.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, CHEWING TOBACCO, UN 07/29/2016 BASIM GUILLEN DO Ot I25.10 ATHSCL HEART DISEASE OF [place] CORONARY 07/29/2016 BAIMA, UMAIR L PRINTING SCREEN ASSEMBLER Ot E78.5 HYPERLIPIDEMIA, UNSPECIFIED 07/29/2016 BAIMA, UMAIR L PRINTING SCREEN ASSEMBLER Ot I10 ESSENTIAL (PRIMARY) HYPERTENSION 07/29/2016 BAIMA, UMAIR L PRINTING SCREEN ASSEMBLER Ot I25.10 ATHSCL HEART DISEASE OF [place] CORONARY 07/29/2016 BAIMA, UMAIR L PRINTING SCREEN ASSEMBLER Ot R10.31 RIGHT LOWER QUADRANT PAIN 07/29/2016 BASIM GUILLEN DO Ot E66.9 OBESITY, UNSPECIFIED 07/29/2016 BASIM GUILLEN DO Ot F17.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, CHEWING TOBACCO, UN 07/29/2016 BASIM GUILLEN DO Ot I25.10 ATHSCL HEART DISEASE OF [place] CORONARY 07/29/2016 BAIMA, UMAIR L PRINTING SCREEN ASSEMBLER Ot E78.5 HYPERLIPIDEMIA, UNSPECIFIED 07/29/2016 BAIMA, UMAIR L PRINTING SCREEN ASSEMBLER Ot I10 ESSENTIAL (PRIMARY) HYPERTENSION 07/29/2016 BAIMA, UMAIR L PRINTING SCREEN ASSEMBLER Ot I25.10 ATHSCL HEART DISEASE OF [place] CORONARY 07/29/2016 BAIMA, UMAIR L PRINTING SCREEN ASSEMBLER Ot L73.9 FOLLICULAR DISORDER, UNSPECIFIED 07/29/2016 BAIMA, UMAIR L PRINTING SCREEN ASSEMBLER Ot E78.5 HYPERLIPIDEMIA, UNSPECIFIED 07/29/2016 BAIMA, UMAIR L PRINTING SCREEN ASSEMBLER Ot I10 ESSENTIAL (PRIMARY) HYPERTENSION 07/29/2016 BAIMA, UMAIR L PRINTING SCREEN ASSEMBLER Ot I25.10 ATHSCL HEART DISEASE OF [place] CORONARY 07/29/2016 BAIMA, UMAIR L PRINTING SCREEN ASSEMBLER Ot Z72.0 TOBACCO USE 07/30/2016 BAIMA, UMAIR L PRINTING SCREEN ASSEMBLER Ot E78.5 HYPERLIPIDEMIA, UNSPECIFIED 07/30/2016 BAIMA, UMAIR L PRINTING SCREEN ASSEMBLER Ot I10 ESSENTIAL (PRIMARY) HYPERTENSION 07/30/2016 BAIMA, UMAIR L PRINTING SCREEN ASSEMBLER Ot I25.10 ATHSCL HEART DISEASE OF [place] CORONARY 07/30/2016 BAIMA, UMAIR L PRINTING SCREEN ASSEMBLER Ot L73.9 FOLLICULAR DISORDER, UNSPECIFIED 09/04/2016 CLIFF DO GEOVANY Ot C91.41 HAIRY CELL LEUKEMIA, IN REMISSION 09/04/2016 CLIFF DO GEOVANY Ot E78.00 PURE HYPERCHOLESTEROLEMIA, UNSPECIFIED 09/04/2016 CORONADO DO GEOVANY Ot E86.0 DEHYDRATION 09/04/2016 CLIFF DO GEOVANY Ot F17.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, CHEWING TOBACCO, UN 09/04/2016 CLIFF DO GEOVANY Ot F41.9 ANXIETY DISORDER, UNSPECIFIED 09/04/2016 CLIFF DO GEOVANY Ot H91.90 UNSPECIFIED HEARING LOSS, UNSPECIFIED EA 09/04/2016 CLIFF DO GEOVANY Ot I10 ESSENTIAL (PRIMARY) HYPERTENSION 09/04/2016 CLIFF DO GEOVANY Ot I25.10 ATHSCL HEART DISEASE OF [place] CORONARY 09/04/2016 CLIFF SANCHEZ GEOVANY Ot I25.119 ATHSCL HEART DISEASE OF [place] COR ART W 09/04/2016 CLIFF SANCHEZ GEOVANY Ot I25.2 OLD MYOCARDIAL INFARCTION 09/04/2016 CLIFF SANCHEZ GEOVANY Ot I47.1 SUPRAVENTRICULAR TACHYCARDIA 09/04/2016 CLIFF SANCHEZ GEOVANY Ot I48.91 UNSPECIFIED ATRIAL FIBRILLATION 09/04/2016 CLIFF SANCHEZ GEOVANY Ot I49.1 ATRIAL PREMATURE DEPOLARIZATION 09/04/2016 CLIFF SANCHEZ GEOVANY Ot I49.3 VENTRICULAR PREMATURE DEPOLARIZATION 09/04/2016 DAVID CORONADO DOI Ot J18.9 PNEUMONIA, UNSPECIFIED ORGANISM 09/04/2016 DAVID CORONADO DOI Ot J44.0 CHRONIC OBSTRUCTIVE PULMON DISEASE W ACU 09/04/2016 CLFIF SANCHEZ GEOVANY Ot J44.1 CHRONIC OBSTRUCTIVE PULMONARY DISEASE W 09/04/2016 CLIFF SANCHEZ GEOVANY Ot J44.9 CHRONIC OBSTRUCTIVE PULMONARY DISEASE, U 09/04/2016 DAVID CORONADO DOI Ot R07.89 OTHER CHEST PAIN 09/04/2016 DAVID CORONADO DOI Ot Z87.891 PERSONAL HISTORY OF NICOTINE DEPENDENCE 09/04/2016 CLIFF SANCHEZ GEOVANY Ot Z90.81 ACQUIRED ABSENCE OF SPLEEN 09/04/2016 CLIFF SANCHEZ GEOVANY Ot Z91.19 PATIENT'S NONCOMPLIANCE W [facility] 09/04/2016 CORONADO DO, GEOVANY Ot Z95.5 PRESENCE OF CORONARY ANGIOPLASTY IMPLANT 09/18/2016 LORUMAIR ANDERSON PRINTING SCREEN ASSEMBLER Ot E78.5 HYPERLIPIDEMIA, UNSPECIFIED 09/18/2016 LORUMAIR ANDERSON PRINTING SCREEN ASSEMBLER Ot F17.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, CHEWING TOBACCO, UN 09/18/2016 LORUMAIR ANDERSON PRINTING SCREEN ASSEMBLER Ot I10 ESSENTIAL (PRIMARY) HYPERTENSION 09/18/2016 LORUMAIR ANDERSON L PRINTING SCREEN ASSEMBLER Ot I25.10 ATHSCL HEART DISEASE OF [place] CORONARY 09/18/2016 LORJUSTIN UMAIR Argueta PRINTING SCREEN ASSEMBLER Ot I25.2 OLD MYOCARDIAL INFARCTION 09/18/2016 ROMEO UMAIR L PRINTING SCREEN ASSEMBLER Ot Z23 ENCOUNTER FOR IMMUNIZATION 09/18/2016 LORJUSTIN UMAIR Argueta PRINTING SCREEN ASSEMBLER Ot 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 09/18/2016 ROMEO UMAIR L PRINTING SCREEN ASSEMBLER Ot Z91.19 PATIENT'S NONCOMPLIANCE W [facility] 09/18/2016 LORUMAIR ANDERSON PRINTING SCREEN ASSEMBLER Ot Z95.5 PRESENCE OF CORONARY ANGIOPLASTY IMPLANT 09/26/2016 LORJUSTIN UMAIR Argueta PRINTING SCREEN ASSEMBLER Ot E78.5 HYPERLIPIDEMIA, UNSPECIFIED 09/26/2016 LORJUSTIN UMAIR Argueta [employer] Ot I10 ESSENTIAL (PRIMARY) HYPERTENSION 09/26/2016 LORUMAIR ANDERSON [employer] Ot I25.10 ATHSCL HEART DISEASE OF [place] CORONARY 09/26/2016 LORUMAIR ANDERSON [employer] Ot Z72.0 TOBACCO USE Procedures Code Description Performed By Performed On [id number] DILATION OF 1 COR ART WITH DRUG-ELUT INT 06/14/2015 [id number] MEASURE OF CARDIAC SAMPL PRESSURE, L H 06/14/2015 [id number] FLUOROSCOPY OF MULT COR ART USING L OSM 06/14/2015 [id number] FLUOROSCOPY OF LEFT HEART USING LOW OSMO 06/14/2015 Results Test Result Range Complete blood count (CBC) with automated white blood cell (WBC) differential - 03/23/16 16:15 Blood leukocytes automated count (number/volume) 13.2 10*3/ uL 4.3-11.0 Blood erythrocytes automated count (number/volume) 4.76 10*6 /uL 4.35-5.85 Venous blood hemoglobin measurement (mass/volume) 15.0 g/dL 13.3-17.7 Blood hematocrit (volume fraction) 44 % 40-54 Automated erythrocyte mean corpuscular volume 92 [foz_us] 80-99 Automated erythrocyte mean corpuscular hemoglobin (mass per erythrocyte) 32 pg 25-34 Automated erythrocyte mean corpuscular hemoglobin concentration measurement ( mass/volume) 34 g/dL 32-36 Automated erythrocyte distribution width ratio 13.2 % 10.0-14.5 Automated blood platelet count (count/volume) 327 10*3/uL 130-400 Automated blood platelet mean volume measurement 9.9 [foz_us ] 7.4-10.4 Automated blood neutrophils/100 leukocytes 54 % 42-75 Automated blood lymphocytes/100 leukocytes 29 % 12-44 Blood monocytes/100 leukocytes 10 % 0-12 Automated blood eosinophils/100 leukocytes 6 % 0-10 Automated blood basophils/100 leukocytes 1 % 0-10 Blood neutrophils automated count (number/volume) 7.2 10*3 1.8-7.8 Blood lymphocytes automated count (number/volume) 3.9 10*3 1.0-4.0 Blood monocytes automated count (number/volume) 1.3 10*3 0.0-1.0 Automated eosinophil count 0.8 10*3/uL 0.0-0.3 Automated blood basophil count (count/volume) 0.1 10*3/uL 0.0-0.1 Comprehensive metabolic panel - 03/23/16 16:15 Serum or plasma sodium measurement (moles/volume) 135 mmol/ L 135-145 Serum or plasma potassium measurement (moles/volume) 3.7 mmol/L 3.6-5.0 Serum or plasma chloride measurement (moles/volume) 104 mmol /L 98-107 Carbon dioxide 23 mmol/L 21-32 Serum or plasma anion gap determination (moles/volume) 8 mmol/L 5-14 Serum or plasma urea nitrogen measurement (mass/volume) 10 mg/dL 7-18 Serum or plasma creatinine measurement (mass/volume) 1.06 mg /dL 0.60-1.30 Serum or plasma urea nitrogen/creatinine mass ratio 9 NRG Serum or plasma creatinine measurement with calculation of estimated glomerular filtration rate > NRG Serum or plasma glucose measurement (mass/volume) 142 mg/dL 70-105 Serum or plasma calcium measurement (mass/volume) 8.1 mg/dL 8.5-10.1 Serum or plasma total bilirubin measurement (mass/volume) 0.7 mg/dL 0.1-1.0 Serum or plasma alkaline phosphatase measurement (enzymatic activity/volume) 95 U/L 40-136 Serum or plasma aspartate aminotransferase measurement (enzymatic activity/ volume) 21 U/L 5-34 Serum or plasma alanine aminotransferase measurement (enzymatic activity/volume ) 23 U/L 0-55 Serum or plasma protein measurement (mass/volume) 6.3 g/dL 6.4-8.2 Serum or plasma albumin measurement (mass/volume) 3.8 g/dL 3.2-4.5 Serum or plasma troponin i.cardiac measurement (mass/volume) - 03/23/16 16:15 Serum or plasma troponin i.cardiac measurement (mass/volume) < ng/mL <0.30 Complete urinalysis with reflex to culture - 03/23/16 18:17 Urine color determination YELLOW NRG Urine clarity determination CLEAR NRG Urine pH measurement by test strip 6 5- 9 Specific gravity of urine by test strip 1.020 1.016-1.022 Urine protein assay by test strip, semi-quantitative 1+ NEGATIVE Urine glucose detection by automated test strip 1+ NEGATIVE Erythrocytes detection in urine sediment by light microscopy NEGATIVE NEGATIVE Urine ketones detection by automated test strip NEGATIVE NEGATIVE Urine nitrite detection by test strip NEGATIVE NEGATIVE Urine total bilirubin detection by test strip NEGATIVE NEGATIVE Urine urobilinogen measurement by automated test strip (mass/volume) NORMAL NORMAL Urine leukocyte esterase detection by dipstick NEGATIVE NEGATIVE Automated urine sediment erythrocyte count by microscopy (number/high power field) NONE NRG Automated urine sediment leukocyte count by microscopy (number/high power field ) NONE NRG Bacteria detection in urine sediment by light microscopy NONE NRG Squamous epithelial cells detection in urine sediment by light microscopy 0-2 NRG Crystals detection in urine sediment by light microscopy NONE NRG Casts detection in urine sediment by light microscopy NONE NRG Mucus detection in urine sediment by light microscopy NEGATIVE NRG Complete urinalysis with reflex to culture NO NRG Serum or plasma troponin i.cardiac measurement (mass/volume) - 03/23/16 22:35 Serum or plasma troponin i.cardiac measurement (mass/volume) < ng/mL <0.30 Serum or plasma troponin i.cardiac measurement (mass/volume) - 03/24/16 04:23 Serum or plasma troponin i.cardiac measurement (mass/volume) < ng/mL <0.30 Lipid 1996 panel - 03/24/16 04:23 Serum or plasma triglyceride measurement (mass/volume) 96 mg /dL <150 Serum or plasma cholesterol measurement (mass/volume) 135 mg /dL < 200 Serum or plasma cholesterol in HDL measurement (mass/volume) 37 mg/dL 40-60 Cholesterol in LDL [mass/volume] in serum or plasma by direct assay 87 mg/dL 1-129 Serum or plasma cholesterol in VLDL measurement (mass/volume) 19 mg/dL 5-40 Automated blood complete blood count (hemogram) panel - 04/01/16 07:09 Blood leukocytes automated count (number/volume) 11.0 10*3/ uL 4.3-11.0 Blood erythrocytes automated count (number/volume) 5.00 10*6 /uL 4.35-5.85 Venous blood hemoglobin measurement (mass/volume) 15.8 g/dL 13.3-17.7 Blood hematocrit (volume fraction) 46 % 40-54 Automated erythrocyte mean corpuscular volume 92 [foz_us] 80-99 Automated erythrocyte mean corpuscular hemoglobin (mass per erythrocyte) 32 pg 25-34 Automated erythrocyte mean corpuscular hemoglobin concentration measurement ( mass/volume) 34 g/dL 32-36 Automated erythrocyte distribution width ratio 13.5 % 10.0-14.5 Automated blood platelet count (count/volume) 321 10*3/uL 130-400 Automated blood platelet mean volume measurement 9.4 [foz_us ] 7.4-10.4 PT panel in platelet poor plasma by coagulation assay - 04/01/16 07:09 Prothrombin time (PT) in platelet poor plasma by coagulation assay 11.8 s 12.2-14.7 INR in platelet poor plasma or blood by coagulation assay 0.9 0.8-1.4 Activated partial thromboplastin time (aPTT) in platelet poor plasma bycoagulation assay - 04/01/16 07:09 Activated partial thromboplastin time (aPTT) in platelet poor plasma bycoagulation assay 25 s 24-35 Comprehensive metabolic panel - 04/01/16 07:09 Serum or plasma sodium measurement (moles/volume) 138 mmol/ L 135-145 Serum or plasma potassium measurement (moles/volume) 4.0 mmol/L 3.6-5.0 Serum or plasma chloride measurement (moles/volume) 104 mmol /L 98-107 Carbon dioxide 23 mmol/L 21-32 Serum or plasma anion gap determination (moles/volume) 11 mmol/L 5-14 Serum or plasma urea nitrogen measurement (mass/volume) 11 mg/dL 7-18 Serum or plasma creatinine measurement (mass/volume) 1.17 mg /dL 0.60-1.30 Serum or plasma urea nitrogen/creatinine mass ratio 9 NRG Serum or plasma creatinine measurement with calculation of estimated glomerular filtration rate > NRG Serum or plasma glucose measurement (mass/volume) 124 mg/dL 70-105 Serum or plasma calcium measurement (mass/volume) 9.0 mg/dL 8.5-10.1 Serum or plasma total bilirubin measurement (mass/volume) 1.0 mg/dL 0.1-1.0 Serum or plasma alkaline phosphatase measurement (enzymatic activity/volume) 85 U/L 40-136 Serum or plasma aspartate aminotransferase measurement (enzymatic activity/ volume) 20 U/L 5-34 Serum or plasma alanine aminotransferase measurement (enzymatic activity/volume ) 25 U/L 0-55 Serum or plasma protein measurement (mass/volume) 7.0 g/dL 6.4-8.2 Serum or plasma albumin measurement (mass/volume) 4.3 g/dL 3.2-4.5 Lipid 1996 panel - 04/01/16 07:09 Serum or plasma triglyceride measurement (mass/volume) 88 mg /dL <150 Serum or plasma cholesterol measurement (mass/volume) 171 mg /dL < 200 Serum or plasma cholesterol in HDL measurement (mass/volume) 49 mg/dL 40-60 Cholesterol in LDL [mass/volume] in serum or plasma by direct assay 108 mg/dL 1-129 Serum or plasma cholesterol in VLDL measurement (mass/volume) 18 mg/dL 5-40 Methicillin resistant Staphylococcus aureus (MRSA) screening culture - 07:09 Methicillin resistant Staphylococcus aureus (MRSA) screening culture NEG NRG Complete blood count (CBC) with automated white blood cell (WBC) differential - 05/28/16 17:06 Blood leukocytes automated count (number/volume) 10.6 10*3/ uL 4.3-11.0 Blood erythrocytes automated count (number/volume) 4.73 10*6 /uL 4.35-5.85 Venous blood hemoglobin measurement (mass/volume) 14.9 g/dL 13.3-17.7 Blood hematocrit (volume fraction) 44 % 40-54 Automated erythrocyte mean corpuscular volume 93 [foz_us] 80-99 Automated erythrocyte mean corpuscular hemoglobin (mass per erythrocyte) 32 pg 25-34 Automated erythrocyte mean corpuscular hemoglobin concentration measurement ( mass/volume) 34 g/dL 32-36 Automated erythrocyte distribution width ratio 13.9 % 10.0-14.5 Automated blood platelet count (count/volume) 343 10*3/uL 130-400 Automated blood platelet mean volume measurement 9.1 [[facility]_us ] 7.4-10.4 Automated blood neutrophils/100 leukocytes 55 % 42-75 Automated blood lymphocytes/100 leukocytes 31 % 12-44 Blood monocytes/100 leukocytes 7 % 0-12 Automated blood eosinophils/100 leukocytes 6 % 0-10 Automated blood basophils/100 leukocytes 1 % 0-10 Blood neutrophils automated count (number/volume) 5.8 10*3 1.8-7.8 Blood lymphocytes automated count (number/volume) 3.3 10*3 1.0-4.0 Blood monocytes automated count (number/volume) 0.8 10*3 0.0-1.0 Automated eosinophil count 0.7 10*3/uL 0.0-0.3 Automated blood basophil count (count/volume) 0.1 10*3/uL 0.0-0.1 PT panel in platelet poor plasma by coagulation assay - 05/28/16 17:06 Prothrombin time (PT) in platelet poor plasma by coagulation assay 11.8 s 12.2-14.7 INR in platelet poor plasma or blood by coagulation assay 0.9 0.8-1.4 Activated partial thromboplastin time (aPTT) in platelet poor plasma bycoagulation assay - 05/28/16 17:06 Activated partial thromboplastin time (aPTT) in platelet poor plasma bycoagulation assay 25 s 24-35 Comprehensive metabolic panel - 05/28/16 17:06 Serum or plasma sodium measurement (moles/volume) 135 mmol/ L 135-145 Serum or plasma potassium measurement (moles/volume) 4.1 mmol/L 3.6-5.0 Serum or plasma chloride measurement (moles/volume) 103 mmol /L 98-107 Carbon dioxide 23 mmol/L 21-32 Serum or plasma anion gap determination (moles/volume) 9 mmol/L 5-14 Serum or plasma urea nitrogen measurement (mass/volume) 10 mg/dL 7-18 Serum or plasma creatinine measurement (mass/volume) 1.12 mg /dL 0.60-1.30 Serum or plasma urea nitrogen/creatinine mass ratio 9 NRG Serum or plasma creatinine measurement with calculation of estimated glomerular filtration rate > NRG Serum or plasma glucose measurement (mass/volume) 108 mg/dL 70-105 Serum or plasma calcium measurement (mass/volume) 8.8 mg/dL 8.5-10.1 Serum or plasma total bilirubin measurement (mass/volume) 0.6 mg/dL 0.1-1.0 Serum or plasma alkaline phosphatase measurement (enzymatic activity/volume) 90 U/L 40-136 Serum or plasma aspartate aminotransferase measurement (enzymatic activity/ volume) 23 U/L 5-34 Serum or plasma alanine aminotransferase measurement (enzymatic activity/volume ) 23 U/L 0-55 Serum or plasma protein measurement (mass/volume) 6.5 g/dL 6.4-8.2 Serum or plasma albumin measurement (mass/volume) 4.0 g/dL 3.2-4.5 Magnesium - 05/28/16 17:06 Magnesium 1.9 mg/dL 1.8-2.4 Serum or plasma troponin i.cardiac measurement (mass/volume) - 05/28/16 17:06 Serum or plasma troponin i.cardiac measurement (mass/volume) < ng/mL <0.30 Myoglobin, serum - 05/28/16 17:06 Myoglobin, serum 54.7 ng/mL 10.0-92.0 Serum or plasma troponin i.cardiac measurement (mass/volume) - 05/29/16 00:42 Serum or plasma troponin i.cardiac measurement (mass/volume) < ng/mL <0.30 Complete blood count (CBC) with automated white blood cell (WBC) differential - 05/29/16 05:00 Blood leukocytes automated count (number/volume) 8.7 10*3/ uL 4.3-11.0 Blood erythrocytes automated count (number/volume) 4.61 10*6 /uL 4.35-5.85 Venous blood hemoglobin measurement (mass/volume) 14.5 g/dL 13.3-17.7 Blood hematocrit (volume fraction) 43 % 40-54 Automated erythrocyte mean corpuscular volume 94 [foz_us] 80-99 Automated erythrocyte mean corpuscular hemoglobin (mass per erythrocyte) 32 pg 25-34 Automated erythrocyte mean corpuscular hemoglobin concentration measurement ( mass/volume) 34 g/dL 32-36 Automated erythrocyte distribution width ratio 14.0 % 10.0-14.5 Automated blood platelet count (count/volume) 328 10*3/uL 130-400 Automated blood platelet mean volume measurement 9.7 [foz_us ] 7.4-10.4 Automated blood neutrophils/100 leukocytes 53 % 42-75 Automated blood lymphocytes/100 leukocytes 27 % 12-44 Blood monocytes/100 leukocytes 10 % 0-12 Automated blood eosinophils/100 leukocytes 9 % 0-10 Automated blood basophils/100 leukocytes 1 % 0-10 Blood neutrophils automated count (number/volume) 4.6 10*3 1.8-7.8 Blood lymphocytes automated count (number/volume) 2.4 10*3 1.0-4.0 Blood monocytes automated count (number/volume) 0.9 10*3 0.0-1.0 Automated eosinophil count 0.8 10*3/uL 0.0-0.3 Automated blood basophil count (count/volume) 0.1 10*3/uL 0.0-0.1 Comprehensive metabolic panel - 05/29/16 06:00 Serum or plasma sodium measurement (moles/volume) 133 mmol/ L 135-145 Serum or plasma potassium measurement (moles/volume) 3.9 mmol/L 3.6-5.0 Serum or plasma chloride measurement (moles/volume) 101 mmol /L 98-107 Carbon dioxide 25 mmol/L 21-32 Serum or plasma anion gap determination (moles/volume) 7 mmol/L 5-14 Serum or plasma urea nitrogen measurement (mass/volume) 12 mg/dL 7-18 Serum or plasma creatinine measurement (mass/volume) 1.01 mg /dL 0.60-1.30 Serum or plasma urea nitrogen/creatinine mass ratio 12 NRG Serum or plasma creatinine measurement with calculation of estimated glomerular filtration rate > NRG Serum or plasma glucose measurement (mass/volume) 122 mg/dL 70-105 Serum or plasma calcium measurement (mass/volume) 8.3 mg/dL 8.5-10.1 Serum or plasma total bilirubin measurement (mass/volume) 0.9 mg/dL 0.1-1.0 Serum or plasma alkaline phosphatase measurement (enzymatic activity/volume) 73 U/L 40-136 Serum or plasma aspartate aminotransferase measurement (enzymatic activity/ volume) 22 U/L 5-34 Serum or plasma alanine aminotransferase measurement (enzymatic activity/volume ) 21 U/L 0-55 Serum or plasma protein measurement (mass/volume) 6.1 g/dL 6.4-8.2 Serum or plasma albumin measurement (mass/volume) 3.7 g/dL 3.2-4.5 Serum or plasma troponin i.cardiac measurement (mass/volume) - 05/29/16 06:00 Serum or plasma troponin i.cardiac measurement (mass/volume) < ng/mL <0.30 Myoglobin, serum - 05/29/16 06:00 Myoglobin, serum 44.6 ng/mL 10.0-92.0 Lipid 1996 panel - 05/29/16 06:00 Serum or plasma triglyceride measurement (mass/volume) 128 mg/dL <150 Serum or plasma cholesterol measurement (mass/volume) 174 mg /dL < 200 Serum or plasma cholesterol in HDL measurement (mass/volume) 40 mg/dL 40-60 Cholesterol in LDL [mass/volume] in serum or plasma by direct assay 124 mg/dL 1-129 Serum or plasma cholesterol in VLDL measurement (mass/volume) 26 mg/dL 5-40 Urine drug screening test - 05/29/16 16:10 Urine phencyclidine detection by screening method NEGATIVE NEGATIVE Urine benzodiazepines detection by screening method NEGATIVE NEGATIVE Urine cocaine detection NEGATIVE NEGATIVE Urine amphetamines detection by screening method NEGATIVE NEGATIVE Urine methamphetamine detection by screening method NEGATIVE NEGATIVE Urine cannabinoids detection by screening method NEGATIVE NEGATIVE Urine opiates detection by screening method POSITIVE NEGATIVE Urine barbiturates detection NEGATIVE NEGATIVE Screening urine tricyclic antidepressants detection NEGATIVE NEGATIVE Urine methadone detection by screening method NEGATIVE NEGATIVE Urine oxycodone detection NEGATIVE NEGATIVE Urine propoxyphene detection NEGATIVE NEGATIVE Complete blood count (CBC) with automated white blood cell (WBC) differential - 09/01/16 09:35 Blood leukocytes automated count (number/volume) 17.2 10*3/ uL 4.3-11.0 Blood erythrocytes automated count (number/volume) 5.10 10*6 /uL 4.35-5.85 Venous blood hemoglobin measurement (mass/volume) 15.8 g/dL 13.3-17.7 Blood hematocrit (volume fraction) 47 % 40-54 Automated erythrocyte mean corpuscular volume 92 [foz_us] 80-99 Automated erythrocyte mean corpuscular hemoglobin (mass per erythrocyte) 31 pg 25-34 Automated erythrocyte mean corpuscular hemoglobin concentration measurement ( mass/volume) 34 g/dL 32-36 Automated erythrocyte distribution width ratio 13.9 % 10.0-14.5 Automated blood platelet count (count/volume) 349 10*3/uL 130-400 Automated blood platelet mean volume measurement 9.2 [foz_us ] 7.4-10.4 Automated blood neutrophils/100 leukocytes 86 % 42-75 Automated blood lymphocytes/100 leukocytes 6 % 12-44 Blood monocytes/100 leukocytes 7 % 0-12 Automated blood eosinophils/100 leukocytes 2 % 0-10 Automated blood basophils/100 leukocytes 0 % 0-10 Blood neutrophils automated count (number/volume) 14.8 10*3 1.8-7.8 Blood lymphocytes automated count (number/volume) 1.0 10*3 1.0-4.0 Blood monocytes automated count (number/volume) 1.1 10*3 0.0-1.0 Automated eosinophil count 0.3 10*3/uL 0.0-0.3 Automated blood basophil count (count/volume) 0.1 10*3/uL 0.0-0.1 Blood lactic acid measurement (moles/volume) - 09/01/16 09:35 Blood lactic acid measurement (moles/volume) 1.88 mmol/L 0.50-2.00 Comprehensive metabolic panel - 09/01/16 09:35 Serum or plasma sodium measurement (moles/volume) 139 mmol/ L 135-145 Serum or plasma potassium measurement (moles/volume) 4.0 mmol/L 3.6-5.0 Serum or plasma chloride measurement (moles/volume) 100 mmol /L 98-107 Carbon dioxide 29 mmol/L 21-32 Serum or plasma anion gap determination (moles/volume) 10 mmol/L 5-14 Serum or plasma urea nitrogen measurement (mass/volume) 13 mg/dL 7-18 Serum or plasma creatinine measurement (mass/volume) 1.35 mg /dL 0.60-1.30 Serum or plasma urea nitrogen/creatinine mass ratio 10 NRG Serum or plasma creatinine measurement with calculation of estimated glomerular filtration rate 54 NRG Serum or plasma glucose measurement (mass/volume) 143 mg/dL 70-105 Serum or plasma calcium measurement (mass/volume) 8.7 mg/dL 8.5-10.1 Serum or plasma total bilirubin measurement (mass/volume) 1.4 mg/dL 0.1-1.0 Serum or plasma alkaline phosphatase measurement (enzymatic activity/volume) 84 U/L 40-136 Serum or plasma aspartate aminotransferase measurement (enzymatic activity/ volume) 29 U/L 5-34 Serum or plasma alanine aminotransferase measurement (enzymatic activity/volume ) 25 U/L 0-55 Serum or plasma protein measurement (mass/volume) 7.1 g/dL 6.4-8.2 Serum or plasma albumin measurement (mass/volume) 3.9 g/dL 3.2-4.5 Blood manual differential performed detection - 09/01/16 09:35 Blood monocytes/100 leukocytes 5 % NRG Manual blood segmented neutrophils/100 leukocytes 80 % NRG Blood band neutrophils/100 leukocytes 7 % NRG Manual blood lymphocytes/100 leukocytes 7 % NRG Manual eosinophils/100 leukocytes in nose 1 % NRG Manual blood basophils/100 leukocytes 0 % NRG Blood [place] bodies detection by light microscopy SLIGHT NR Bacterial blood culture - 09/01/16 09:35 FREE TEXT EXTERNAL SEE COMMENTS NR QUANTITY OF GROWTH Isolated [facility] Bacterial blood culture [id number] [facility] Bacterial blood culture - 09/01/16 11:01 Bacterial blood culture NG NRG Serum or plasma troponin i.cardiac measurement (mass/volume) - 09/01/16 20:06 Serum or plasma troponin i.cardiac measurement (mass/volume) < ng/mL <0.30 Complete blood count (CBC) with automated white blood cell (WBC) differential - 09/02/16 02:10 Blood leukocytes automated count (number/volume) 18.7 10*3/ uL 4.3-11.0 Blood erythrocytes automated count (number/volume) 4.14 10*6 /uL 4.35-5.85 Venous blood hemoglobin measurement (mass/volume) 13.1 g/dL 13.3-17.7 Blood hematocrit (volume fraction) 39 % 40-54 Automated erythrocyte mean corpuscular volume 93 [foz_us] 80-99 Automated erythrocyte mean corpuscular hemoglobin (mass per erythrocyte) 32 pg 25-34 Automated erythrocyte mean corpuscular hemoglobin concentration measurement ( mass/volume) 34 g/dL 32-36 Automated erythrocyte distribution width ratio 13.8 % 10.0-14.5 Automated blood platelet count (count/volume) 308 10*3/uL 130-400 Automated blood platelet mean volume measurement 8.8 [foz_us ] 7.4-10.4 Automated blood neutrophils/100 leukocytes 80 % 42-75 Automated blood lymphocytes/100 leukocytes 12 % 12-44 Blood monocytes/100 leukocytes 8 % 0-12 Automated blood eosinophils/100 leukocytes 1 % 0-10 Automated blood basophils/100 leukocytes 0 % 0-10 Blood neutrophils automated count (number/volume) 14.9 10*3 1.8-7.8 Blood lymphocytes automated count (number/volume) 2.3 10*3 1.0-4.0 Blood monocytes automated count (number/volume) 1.4 10*3 0.0-1.0 Automated eosinophil count 0.1 10*3/uL 0.0-0.3 Automated blood basophil count (count/volume) 0.1 10*3/uL 0.0-0.1 Serum or plasma troponin i.cardiac measurement (mass/volume) - 09/02/16 02:10 Serum or plasma troponin i.cardiac measurement (mass/volume) < ng/mL <0.30 Comprehensive metabolic panel - 09/02/16 02:10 Serum or plasma sodium measurement (moles/volume) 137 mmol/ L 135-145 Serum or plasma potassium measurement (moles/volume) 3.5 mmol/L 3.6-5.0 Serum or plasma chloride measurement (moles/volume) 105 mmol /L 98-107 Carbon dioxide 24 mmol/L 21-32 Serum or plasma anion gap determination (moles/volume) 8 mmol/L 5-14 Serum or plasma urea nitrogen measurement (mass/volume) 14 mg/dL 7-18 Serum or plasma creatinine measurement (mass/volume) 1.20 mg /dL 0.60-1.30 Serum or plasma urea nitrogen/creatinine mass ratio 12 NRG Serum or plasma creatinine measurement with calculation of estimated glomerular filtration rate > NRG Serum or plasma glucose measurement (mass/volume) 155 mg/dL 70-105 Serum or plasma calcium measurement (mass/volume) 7.9 mg/dL 8.5-10.1 Serum or plasma total bilirubin measurement (mass/volume) 1.0 mg/dL 0.1-1.0 Serum or plasma alkaline phosphatase measurement (enzymatic activity/volume) 65 U/L 40-136 Serum or plasma aspartate aminotransferase measurement (enzymatic activity/ volume) 23 U/L 5-34 Serum or plasma alanine aminotransferase measurement (enzymatic activity/volume ) 22 U/L 0-55 Serum or plasma protein measurement (mass/volume) 5.6 g/dL 6.4-8.2 Serum or plasma albumin measurement (mass/volume) 3.2 g/dL 3.2-4.5 Comprehensive metabolic panel - 09/03/16 06:24 Serum or plasma sodium measurement (moles/volume) 134 mmol/ L 135-145 Serum or plasma potassium measurement (moles/volume) 3.9 mmol/L 3.6-5.0 Serum or plasma chloride measurement (moles/volume) 106 mmol /L 98-107 Carbon dioxide 19 mmol/L 21-32 Serum or plasma anion gap determination (moles/volume) 9 mmol/L 5-14 Serum or plasma urea nitrogen measurement (mass/volume) 6 mg /dL 7-18 Serum or plasma creatinine measurement (mass/volume) 0.91 mg /dL 0.60-1.30 Serum or plasma urea nitrogen/creatinine mass ratio 7 NRG Serum or plasma creatinine measurement with calculation of estimated glomerular filtration rate > NRG Serum or plasma glucose measurement (mass/volume) 113 mg/dL 70-105 Serum or plasma calcium measurement (mass/volume) 8.3 mg/dL 8.5-10.1 Serum or plasma total bilirubin measurement (mass/volume) 1.4 mg/dL 0.1-1.0 Serum or plasma alkaline phosphatase measurement (enzymatic activity/volume) 68 U/L 40-136 Serum or plasma aspartate aminotransferase measurement (enzymatic activity/ volume) 28 U/L 5-34 Serum or plasma alanine aminotransferase measurement (enzymatic activity/volume ) 30 U/L 0-55 Serum or plasma protein measurement (mass/volume) 6.1 g/dL 6.4-8.2 Serum or plasma albumin measurement (mass/volume) 3.4 g/dL 3.2-4.5 Magnesium - 09/03/16 06:24 Magnesium 1.7 mg/dL 1.8-2.4 Lipid 1996 panel - 09/03/16 06:24 Serum or plasma triglyceride measurement (mass/volume) 55 mg /dL <150 Serum or plasma cholesterol measurement (mass/volume) 129 mg /dL < 200 Serum or plasma cholesterol in HDL measurement (mass/volume) 37 mg/dL 40-60 Cholesterol in LDL [mass/volume] in serum or plasma by direct assay 83 mg/dL 1-129 Serum or plasma cholesterol in VLDL measurement (mass/volume) 11 mg/dL 5-40 [id number] - 09/03/16 08:45 RESULTS NEGATIVE FOR ANTIGEN AND TOXIN A/B NRG Encounters ACCT No. Visit Date/Time Discharge Status Pt. Type Provider Facility Loc./Unit Complaint [id number] 09/01/2016 11:00:00 2016 12:06:00 DIS Outpatient GEOVANY CORONADO DO [facility] 4TH PNEUMONIA [id number] 05/28/2016 18:20:00 2015 17:35:00 DIS Inpatient TAMARA SORTO MD [facility] 4TH CHEST PAIN [id number] 04/01/2016 06:13:00 2015 10:00:00 DIS Outpatient UMAIR WALTERS [facility] CATH CAD,HTN,HL [id number] 03/23/2016 19:40:00 2015 10:43:00 DIS Inpatient LETICIA PENA MD, FACC, FACP CCDS [facility] ICU CHEST PAIN, CAD [id number] 02/26/2016 14:00:00 2015 14:16:00 DIS Outpatient BASIM GUILLEN DO [facility] SLEEP IBRAHIMA [id number] 11/17/2015 00:30:00 2015 02:07:00 DIS Emergency SUMAN MORROW DO [facility] ER SOA [id number] 09/23/2015 12:12:00 2015 11:50:00 DIS Inpatient COLEMAN SAMUELS MD [facility] 4TH CHEST PAIN SOB [id number] 06/14/2015 14:21:00 2015 14:35:00 DIS Inpatient LETICIA PENA MD, FACC, FACP CCDS [facility] CSD CHEST PAIN [id number] 04/04/2015 12:53:00 2014 23:59:59 CLS Outpatient RANDI JOSHI MD [facility] RT DDU [id number] 12/23/2012 08:13:00 2012 23:59:59 CLS Outpatient UMAIR WALTERS [facility] LAB STATIN [place] [id number] 12/21/2012 10:50:00 2012 23:59:59 CLS Outpatient [id number] 07/29/2016 16:05:00 Document Registration [id number] 04/07/2016 12:04:00 ACT Outpatient UMAIR WALTERS [facility] RAD CAD,HTN,HLP,DISCOMFORT OF RT GROIN [id number] 12/17/2015 15:22:00 ACT Outpatient BASIM GUILLEN DO [facility] RT ORDER DISPATCHER CHIEF,OBESITY,CAD [id number] 09/23/2015 13:37:00 Document Registration [id number] 07/30/2015 06:52:00 ACT Outpatient UMAIR WALTERS [facility] CARD CAD,HTN,HLP [id number] 07/16/2015 06:16:00 ACT Outpatient UMAIR WALTERS [facility] LAB CAD;HYPERTENSION;HYPERLIPIDEMIA;ORDER DISPATCHER CHIEF [id number] 08/30/2012 16:19:00 Document Registration [id number] 07/27/2012 07:54:00 Document Registration [id number] 01/01/2010 08:35:00 Document Registration [id number] 10/16/2009 08:22:00 Document Registration
--- OUTSIDE RECORDS SUMMARY | 2016-10-05 06:03 | XMS REPORT | Continuity of Care Document ---
Author Author [facility] Organization [facility] Address Unknown Phone Unavailable Care Team Providers Care Anthropology Professor Name Role Phone Unverified, Unverified PCP Unavailable Source Comments Some departments are not documenting in the electronic medical record. If you do not see the information that you expected, contact Release of Information in the Health Information Management department at [phone] for further assistance in locating additional records.[facility] Active Allergies and Adverse Reactions Not on [...]
--- OUTSIDE RECORDS SUMMARY | 2016-10-05 06:05 | XMS REPORT | Continuity of Care Document ---
Author Author [facility] Organization [facility] Address Unknown Phone Unavailable Allergies Active Description Code Type Severity Reaction Onset Reported/Identified Relationship to Patient Clinical Status Yes No Known Drug Allergies [id number] Drug Allergy Unknown N/ A 09/23/2015 Medications Problems Date Dx Coded Attending Type Code Diagnosis Diagnosed By 07/28/2012 Ot 305.1 TOBACCO USE DISORDER 07/28/2012 Ot 401.9 HYPERTENSION NOS 07/28/2012 Ot 414.01 CORONARY ATHEROSCLEROSIS OF [place] CORON 07/28/2012 Ot 785.0 TACHYCARDIA NOS 07/28/2012 Ot 786.59 CHEST PAIN NEC 07/28/2012 Ot V10.69 HX OF LEUKEMIA NEC 07/28/2012 Ot V45.79 ACQRD ABSENCE OF OTH ORGAN 04/04/2015 Ot 272.4 04/04/2015 Ot 414.01 04/04/2015 Ot V58.69 04/04/2015 Ot 272.4 04/04/2015 Ot 414.01 04/04/2015 Ot V58.69 04/04/2015 Ot 272.4 04/04/2015 Ot 414.00 04/04/2015 Ot V58.69 04/04/2015 UMAIR WALTERS MOVIE PROJECTIONIST Ot 272.4 04/04/2015 BAIUMAIR ANDERSON MOVIE PROJECTIONIST Ot 414.01 04/04/2015 BAIUMAIR ANDERSON MOVIE PROJECTIONIST Ot V58.69 06/14/2015 Ot 272.4 06/14/2015 Ot 414.01 06/14/2015 Ot V58.69 06/14/2015 Ot 272.4 06/14/2015 Ot 414.00 06/14/2015 Ot V58.69 06/14/2015 UMAIR WALTERS MOVIE PROJECTIONIST Ot 272.4 06/14/2015 BAIUMAIR ANDERSON MOVIE PROJECTIONIST Ot 414.01 06/14/2015 BAIUMAIR ANDERSON MOVIE PROJECTIONIST Ot V58.69 06/14/2015 MADELYN CARTER, RANDI Armstrong Ot Z02.71 06/14/2015 Ot 272.4 06/14/2015 Ot 414.01 06/14/2015 Ot V58.69 06/14/2015 Ot 272.4 06/14/2015 Ot 414.00 06/14/2015 Ot V58.69 06/14/2015 BAICHANTELL ANDERSONHER L MOVIE PROJECTIONIST Ot 272.4 06/14/2015 BAICHANTELL ANDERSONHER L MOVIE PROJECTIONIST Ot 414.01 06/14/2015 BAIUMAIR ANDERSON L MOVIE PROJECTIONIST Ot V58.69 06/14/2015 MADELYN CARTER, RANDI Armstrong Ot Z02.71 06/16/2015 JEAN CARTER FACC, ALI FACP CCDS Ot E78.5 HYPERLIPIDEMIA, UNSPECIFIED 06/16/2015 JEAN CARTER FACC, ALI FACP CCDS Ot F17.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, CHEWING TOBACCO, UN 06/16/2015 JEAN CARTER FACC, ALI FACP CCDS Ot I21.19 STEMI INVOLVING OTH CORONARY ARTERY OF I 06/16/2015 JEAN CARTER FACC, ALI FACP CCDS Ot I25.10 ATHSCL HEART DISEASE OF [place] CORONARY 06/16/2015 JEAN CARTER FACC, ALI FACP CCDS Ot Z91.19 PATIENT'S NONCOMPLIANCE W OT MEDICAL TR 06/27/2015 Ot 272.4 06/27/2015 Ot 414.00 06/27/2015 Ot V58.69 06/27/2015 UMAIR WALTERS L MOVIE PROJECTIONIST Ot 272.4 06/27/2015 BAIJUSTIN UMAIR L MOVIE PROJECTIONIST Ot 414.01 06/27/2015 UMAIR WALTERS L MOVIE PROJECTIONIST Ot V58.69 06/27/2015 RANDI JOSHI MD Ot Z02.71 07/30/2015 Ot 272.4 07/30/2015 Ot 414.00 07/30/2015 Ot V58.69 07/30/2015 BAIMA UMAIR L MOVIE PROJECTIONIST Ot 272.4 07/30/2015 BAIMA UMAIR L MOVIE PROJECTIONIST Ot 414.01 07/30/2015 BAIMA UMAIR L MOVIE PROJECTIONIST Ot V58.69 07/30/2015 RANDI JOSHI MD Ot Z02.71 07/30/2015 UMAIR WALTERS L MOVIE PROJECTIONIST Ot E78.5 07/30/2015 ROMEO UMAIR L MOVIE PROJECTIONIST Ot I10 07/30/2015 BAIUMAIR ANDERSON L MOVIE PROJECTIONIST Ot I25.10 07/30/2015 UMAIR WALTERS L MOVIE PROJECTIONIST Ot Z72.0 09/24/2015 BAIMACHANTELLUMAIR L MOVIE PROJECTIONIST Ot E78.5 HYPERLIPIDEMIA, UNSPECIFIED 09/24/2015 BAIMA UMAIR L MOVIE PROJECTIONIST Ot I10 ESSENTIAL (PRIMARY) HYPERTENSION 09/24/2015 BAIMA UMAIR L MOVIE PROJECTIONIST Ot I25.10 ATHSCL HEART DISEASE OF [place] CORONARY 09/24/2015 BAICHANTELL ANDERSONHER L MOVIE PROJECTIONIST Ot L73.9 FOLLICULAR DISORDER, UNSPECIFIED 09/24/2015 BAIMAUMAIR L MOVIE PROJECTIONIST Ot E78.5 HYPERLIPIDEMIA, UNSPECIFIED 09/24/2015 BAIMA UMAIR L MOVIE PROJECTIONIST Ot I10 ESSENTIAL (PRIMARY) HYPERTENSION 09/24/2015 BAIMA UMAIR L MOVIE PROJECTIONIST Ot I25.10 ATHSCL HEART DISEASE OF [place] CORONARY 09/24/2015 UMAIR WALTERS L MOVIE PROJECTIONIST Ot Z72.0 TOBACCO USE 09/25/2015 UMAIR WALTERS L MOVIE PROJECTIONIST Ot E78.5 HYPERLIPIDEMIA, UNSPECIFIED 09/25/2015 BAIMAUMAIR L MOVIE PROJECTIONIST Ot I10 ESSENTIAL (PRIMARY) HYPERTENSION 09/25/2015 BAIMA UMAIR L MOVIE PROJECTIONIST Ot I25.10 ATHSCL HEART DISEASE OF [place] CORONARY 09/25/2015 UMAIR WALTERS L MOVIE PROJECTIONIST Ot Z72.0 TOBACCO USE 09/25/2015 UMAIR WALTERS L MOVIE PROJECTIONIST Ot E78.5 HYPERLIPIDEMIA, UNSPECIFIED 09/25/2015 BAIMA UMAIR L MOVIE PROJECTIONIST Ot I10 ESSENTIAL (PRIMARY) HYPERTENSION 09/25/2015 BAIUMAIR ANDERSON L MOVIE PROJECTIONIST Ot I25.10 ATHSCL HEART DISEASE OF [place] CORONARY 09/25/2015 BAIUMAIR ANDERSON L MOVIE PROJECTIONIST Ot L73.9 FOLLICULAR DISORDER, UNSPECIFIED 09/25/2015 ABRIL CARTER, COLEMAN Armstrong Ot C91.40 HAIRY CELL LEUKEMIA NOT HAVING ACHIEVED 09/25/2015 ABRIL CARTER, COLEMAN Armstrong Ot E78.0 PURE HYPERCHOLESTEROLEMIA 09/25/2015 COLEMAN SAMUELS MD Ot E78.5 HYPERLIPIDEMIA, UNSPECIFIED 09/25/2015 COLEAMN SAMUELS MD Ot I10 ESSENTIAL (PRIMARY) HYPERTENSION 09/25/2015 COLEMAN SAMUELS MD Ot I25.10 ATHSCL HEART DISEASE OF [place] CORONARY 09/25/2015 COLEMAN SAMUELS MD Ot I25.2 [...] OTH MED,LT,CURRENT USE 11/17/2015 BAIMA, UMAIR L MOVIE PROJECTIONIST Ot 272.4 HYPERLIPIDEMIA NEC/NOS 11/17/2015 BAIMA, UMAIR L MOVIE PROJECTIONIST Ot 414.01 CORONARY ATHEROSCLEROSIS OF [place] CORON 11/17/2015 BAIMA, UMAIR L MOVIE PROJECTIONIST Ot V58.69 OTH MED,LT,CURRENT USE 11/17/2015 MADELYN CARTER, RANDI Armstrong Ot Z02.71 ENCOUNTER FOR DISABILITY DETERMINATION 11/17/2015 BAIMA, UMAIR L MOVIE PROJECTIONIST Ot E78.5 HYPERLIPIDEMIA, UNSPECIFIED 11/17/2015 BAIMA, UMAIR L MOVIE PROJECTIONIST Ot I10 ESSENTIAL (PRIMARY) HYPERTENSION 11/17/2015 BAIMA, UMAIR L MOVIE PROJECTIONIST Ot I25.10 ATHSCL HEART DISEASE OF [place] CORONARY 11/17/2015 BAIMA, UMAIR L MOVIE PROJECTIONIST Ot Z72.0 TOBACCO USE 11/17/2015 BAIMA, UMAIR L MOVIE PROJECTIONIST Ot E78.5 HYPERLIPIDEMIA, UNSPECIFIED 11/17/2015 BAIMA, UMAIR L MOVIE PROJECTIONIST Ot I10 ESSENTIAL (PRIMARY) HYPERTENSION 11/17/2015 BAIMA, UMAIR L MOVIE PROJECTIONIST Ot I25.10 ATHSCL HEART DISEASE OF [place] CORONARY 11/17/2015 BAIMA, UMAIR L MOVIE PROJECTIONIST Ot L73.9 FOLLICULAR DISORDER, UNSPECIFIED 11/17/2015 SUMAN MORROW DO Ot J44.1 CHRONIC OBSTRUCTIVE PULMONARY DISEASE W 11/17/2015 Ot 272.4 HYPERLIPIDEMIA NEC/NOS 11/17/2015 Ot 414.00 CORON ATHEROSCLER NOS TYPE VESSEL, NATIV 11/17/2015 Ot V58.69 OTH MED,LT,CURRENT USE 11/17/2015 BAIMA, UMAIR L MOVIE PROJECTIONIST Ot 272.4 HYPERLIPIDEMIA NEC/NOS 11/17/2015 BAIMA, UMAIR L MOVIE PROJECTIONIST Ot 414.01 CORONARY ATHEROSCLEROSIS OF [place] CORON 11/17/2015 BAIMA, UMAIR L MOVIE PROJECTIONIST Ot V58.69 OTH MED,LT,CURRENT USE 11/17/2015 MADELYN CARTER, RANDI Armstrong Ot Z02.71 ENCOUNTER FOR DISABILITY DETERMINATION 11/17/2015 BAIMA, UMAIR L MOVIE PROJECTIONIST Ot E78.5 HYPERLIPIDEMIA, UNSPECIFIED 11/17/2015 BAIMA, UMAIR L MOVIE PROJECTIONIST Ot I10 ESSENTIAL (PRIMARY) HYPERTENSION 11/17/2015 BAIMA, UMAIR L MOVIE PROJECTIONIST Ot I25.10 ATHSCL HEART DISEASE OF [place] CORONARY 11/17/2015 BAIMA, UMAIR L MOVIE PROJECTIONIST Ot Z72.0 TOBACCO USE 11/17/2015 BAIMA, UMAIR L MOVIE PROJECTIONIST Ot E78.5 HYPERLIPIDEMIA, UNSPECIFIED 11/17/2015 BAIMA, UMAIR L MOVIE PROJECTIONIST Ot I10 ESSENTIAL (PRIMARY) HYPERTENSION 11/17/2015 BAIMA, UMAIR L MOVIE PROJECTIONIST Ot I25.10 ATHSCL HEART DISEASE OF [place] CORONARY 11/17/2015 BAIMA, UMAIR L MOVIE PROJECTIONIST Ot L73.9 FOLLICULAR DISORDER, UNSPECIFIED 11/19/2015 SUMAN MORROW DO Ot J44.1 CHRONIC OBSTRUCTIVE PULMONARY DISEASE W 12/16/2015 SUMAN MORROW DO Ot J44.1 CHRONIC OBSTRUCTIVE PULMONARY DISEASE W 12/19/2015 BASIM GUILLEN DO Ot E66.9 OBESITY, UNSPECIFIED 12/19/2015 BASIM GUILLEN DO Ot F17.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, CHEWING TOBACCO, UN 12/19/2015 BASIM GUILLEN DO Ot I25.10 ATHSCL HEART DISEASE OF [place] CORONARY 02/26/2016 BASIM GUILLEN DO Ot G47.33 [...] CCDS Ot I25.10 ATHSCL HEART DISEASE OF [place] CORONARY 03/24/2016 JEAN CARTER FACC, LETICIA FACP CCDS Ot J44.9 CHRONIC OBSTRUCTIVE PULMONARY DISEASE, U 03/24/2016 JEAN CARTER FACC, ALI FACP CCDS Ot Z91.19 PATIENT'S NONCOMPLIANCE W [facility] MEDICAL TR 04/02/2016 UMAIR WALTERS MOVIE PROJECTIONIST Ot E78.5 HYPERLIPIDEMIA, UNSPECIFIED 04/02/2016 UMAIR WALTERS L MOVIE PROJECTIONIST Ot F17.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, CHEWING TOBACCO, UN 04/02/2016 UMAIR WALTERS L MOVIE PROJECTIONIST Ot I10 ESSENTIAL (PRIMARY) HYPERTENSION 04/02/2016 UMAIR WALTERS L MOVIE PROJECTIONIST Ot I25.10 ATHSCL HEART DISEASE OF [place] CORONARY 04/02/2016 UMAIR WALTERS MOVIE PROJECTIONIST Ot I25.2 OLD MYOCARDIAL INFARCTION 04/02/2016 UMAIR WALTERS MOVIE PROJECTIONIST Ot Z23 ENCOUNTER FOR IMMUNIZATION 04/02/2016 UMAIR WALTERS MOVIE PROJECTIONIST Ot Z79.899 OTHER COOK PRESSURE (CURRENT) DRUG THERAPY 04/02/2016 UMAIR WALTERS L MOVIE PROJECTIONIST Ot Z91.19 PATIENT'S NONCOMPLIANCE W [facility] MEDICAL TR 04/02/2016 UMAIR WALTERS MOVIE PROJECTIONIST Ot Z95.5 PRESENCE OF CORONARY ANGIOPLASTY IMPLANT 04/07/2016 UMAIR WALTERS L MOVIE PROJECTIONIST Ot I25.10 ATHSCL HEART DISEASE OF [place] CORONARY 04/08/2016 UMAIR WALTERS L MOVIE PROJECTIONIST Ot I25.10 ATHSCL HEART DISEASE OF [place] CORONARY 04/08/2016 UMAIR WALTERS L MOVIE PROJECTIONIST Ot E78.5 HYPERLIPIDEMIA, UNSPECIFIED 04/08/2016 BAIMA, UMAIR L MOVIE PROJECTIONIST Ot I10 ESSENTIAL (PRIMARY) HYPERTENSION 04/08/2016 BAIMA, UMAIR L MOVIE PROJECTIONIST Ot I25.10 ATHSCL HEART DISEASE OF [place] CORONARY 04/08/2016 BAIMA UMAIR L MOVIE PROJECTIONIST Ot R10.31 RIGHT LOWER QUADRANT PAIN 04/15/2016 BAIMA, UMAIR L MOVIE PROJECTIONIST Ot E78.5 HYPERLIPIDEMIA, UNSPECIFIED 04/15/2016 BAIMA, UMAIR L MOVIE PROJECTIONIST Ot F17.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, CHEWING TOBACCO, UN 04/15/2016 BAIMA, UMAIR L MOVIE PROJECTIONIST Ot I10 ESSENTIAL (PRIMARY) HYPERTENSION 04/15/2016 BAIMA, UMAIR L MOVIE PROJECTIONIST Ot I25.10 ATHSCL HEART DISEASE OF [place] CORONARY 04/15/2016 BAIMA UMAIR L MOVIE PROJECTIONIST Ot I25.2 OLD MYOCARDIAL INFARCTION 04/15/2016 BAIMA, UMAIR L MOVIE PROJECTIONIST Ot Z79.899 OTHER FDC (CURRENT) DRUG THERAPY 04/15/2016 BAIMA, UMAIR L MOVIE PROJECTIONIST Ot Z91.19 PATIENT'S NONCOMPLIANCE W [facility] MEDICAL TR 04/15/2016 BAIMA, UMAIR L MOVIE PROJECTIONIST Ot Z95.5 PRESENCE OF CORONARY ANGIOPLASTY IMPLANT 04/17/2016 BAIMA, UMAIR L MOVIE PROJECTIONIST Ot E78.5 HYPERLIPIDEMIA, UNSPECIFIED 04/17/2016 BAIMA, UMAIR L MOVIE PROJECTIONIST Ot F17.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, CHEWING TOBACCO, UN 04/17/2016 BAIMA, UMAIR L MOVIE PROJECTIONIST Ot I10 ESSENTIAL (PRIMARY) HYPERTENSION 04/17/2016 BAIMA, UMAIR L MOVIE PROJECTIONIST Ot I25.10 ATHSCL HEART DISEASE OF [place] CORONARY 04/17/2016 BAIMA UMAIR L MOVIE PROJECTIONIST Ot I25.2 OLD MYOCARDIAL INFARCTION 04/17/2016 BAIMA, UMAIR L MOVIE PROJECTIONIST Ot Z79.899 OTHER COOK PRESSURE (CURRENT) DRUG THERAPY 04/17/2016 BAIMA, UMAIR L MOVIE PROJECTIONIST Ot Z91.19 PATIENT'S NONCOMPLIANCE W [facility] MEDICAL TR 04/17/2016 BAIMA, UMAIR L MOVIE PROJECTIONIST Ot Z95.5 PRESENCE OF CORONARY ANGIOPLASTY IMPLANT 04/29/2016 BAIMA, UMAIR L MOVIE PROJECTIONIST Ot E78.5 HYPERLIPIDEMIA, UNSPECIFIED 04/29/2016 BAIMA, UMAIR L MOVIE PROJECTIONIST Ot I10 ESSENTIAL (PRIMARY) HYPERTENSION 04/29/2016 LORUMAIR ANDERSON MOVIE PROJECTIONIST Ot I25.10 ATHSCL HEART DISEASE OF [place] CORONARY 04/29/2016 UMAIR WALTERS MOVIE PROJECTIONIST Ot R10.31 RIGHT LOWER QUADRANT PAIN 05/28/2016 LORUMAIR ANDERSON MOVIE PROJECTIONIST Ot E78.5 HYPERLIPIDEMIA, UNSPECIFIED 05/28/2016 UMAIR WALTERS L MOVIE PROJECTIONIST Ot F17.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, CHEWING TOBACCO, UN 05/28/2016 ROMEO UMAIR L MOVIE PROJECTIONIST Ot I10 ESSENTIAL (PRIMARY) HYPERTENSION 05/28/2016 UMAIR WALTERS MOVIE PROJECTIONIST Ot I25.10 ATHSCL HEART DISEASE OF [place] CORONARY 05/28/2016 UMAIR WALTERS MOVIE PROJECTIONIST Ot I25.2 OLD MYOCARDIAL INFARCTION 05/28/2016 LORJUSTIN UMAIR Argueta MOVIE PROJECTIONIST Ot Z23 ENCOUNTER FOR IMMUNIZATION 05/28/2016 ROMEO UMAIR Argueta MOVIE PROJECTIONIST Ot Z79.899 OTHER FDC (CURRENT) DRUG THERAPY 05/28/2016 LORUMAIR ANDERSON MOVIE PROJECTIONIST Ot Z91.19 PATIENT'S NONCOMPLIANCE W [facility] MEDICAL TR 05/28/2016 LORJUSTIN UMAIR Argueta MOVIE PROJECTIONIST Ot Z95.5 PRESENCE OF CORONARY ANGIOPLASTY IMPLANT 05/29/2016 TAMARA SORTO MD Ot E78.00 PURE HYPERCHOLESTEROLEMIA, UNSPECIFIED 05/29/2016 TAMARA SORTO MD Ot I10 ESSENTIAL (PRIMARY) HYPERTENSION 05/29/2016 TAMARA SORTO MD Ot I25.10 ATHSCL HEART DISEASE OF [place] CORONARY 05/29/2016 TAMARA SORTO MD Ot J44.9 [...] MD Ot I25.10 ATHSCL HEART DISEASE OF [place] CORONARY 05/29/2016 NOREEN CARTER, TAMARA Enriquez Ot [...] OTH MED,LT,CURRENT USE 07/29/2016 BAIMA, UMAIR L MOVIE PROJECTIONIST Ot 272.4 HYPERLIPIDEMIA NEC/NOS 07/29/2016 BAIMA, UMAIR L MOVIE PROJECTIONIST Ot 414.01 CORONARY ATHEROSCLEROSIS OF [place] CORON 07/29/2016 BAIMA, UMAIR L MOVIE PROJECTIONIST Ot V58.69 OTH MED,LT,CURRENT USE 07/29/2016 MADELYN CARTER, RANDI Armstrong Ot Z02.71 ENCOUNTER FOR DISABILITY DETERMINATION 07/29/2016 BAIMA, UMAIR L MOVIE PROJECTIONIST Ot E78.5 HYPERLIPIDEMIA, UNSPECIFIED 07/29/2016 BAIMA, UMAIR L MOVIE PROJECTIONIST Ot I10 ESSENTIAL (PRIMARY) HYPERTENSION 07/29/2016 BAIMA, UMAIR L MOVIE PROJECTIONIST Ot I25.10 ATHSCL HEART DISEASE OF [place] CORONARY 07/29/2016 BAIMA, UMAIR L MOVIE PROJECTIONIST Ot Z72.0 TOBACCO USE 07/29/2016 BAIMA, UMAIR L MOVIE PROJECTIONIST Ot E78.5 HYPERLIPIDEMIA, UNSPECIFIED 07/29/2016 BAIMA, UMAIR L MOVIE PROJECTIONIST Ot I10 ESSENTIAL (PRIMARY) HYPERTENSION 07/29/2016 BAIMA, UMAIR L MOVIE PROJECTIONIST Ot I25.10 ATHSCL HEART DISEASE OF [place] CORONARY 07/29/2016 ROMEO UMAIR L MOVIE PROJECTIONIST Ot L73.9 FOLLICULAR DISORDER, UNSPECIFIED 07/29/2016 BASIM GUILLEN DO Ot E66.9 OBESITY, UNSPECIFIED 07/29/2016 BASIM GUILLEN DO Ot F17.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, CHEWING TOBACCO, UN 07/29/2016 BASIM GUILLEN DO Ot I25.10 ATHSCL HEART DISEASE OF [place] CORONARY 07/29/2016 BAIMA, UMAIR L MOVIE PROJECTIONIST Ot E78.5 HYPERLIPIDEMIA, UNSPECIFIED 07/29/2016 BAIMA, UMAIR L MOVIE PROJECTIONIST Ot I10 ESSENTIAL (PRIMARY) HYPERTENSION 07/29/2016 BAIMA, UMAIR L MOVIE PROJECTIONIST Ot I25.10 ATHSCL HEART DISEASE OF [place] CORONARY 07/29/2016 BAIMA, UMAIR L MOVIE PROJECTIONIST Ot R10.31 RIGHT LOWER QUADRANT PAIN 07/29/2016 BAIMA, UMAIR L MOVIE PROJECTIONIST Ot E78.5 HYPERLIPIDEMIA, UNSPECIFIED 07/29/2016 BAIMA, UMAIR L MOVIE PROJECTIONIST Ot I10 ESSENTIAL (PRIMARY) HYPERTENSION 07/29/2016 BAIMA, UMAIR L MOVIE PROJECTIONIST Ot I25.10 ATHSCL HEART DISEASE OF [place] CORONARY 07/29/2016 BAIMA, UMAIR L MOVIE PROJECTIONIST Ot R10.31 RIGHT LOWER QUADRANT PAIN 07/29/2016 Ot 272.4 HYPERLIPIDEMIA NEC/NOS 07/29/2016 Ot 414.00 CORON ATHEROSCLER NOS TYPE VESSEL, NATIV 07/29/2016 Ot V58.69 OTH MED,LT,CURRENT USE 07/29/2016 BAIMA, UMAIR L MOVIE PROJECTIONIST Ot 272.4 HYPERLIPIDEMIA NEC/NOS 07/29/2016 BAIMA, UMAIR L MOVIE PROJECTIONIST Ot 414.01 CORONARY ATHEROSCLEROSIS OF [place] CORON 07/29/2016 BAIMA, UMAIR L MOVIE PROJECTIONIST Ot V58.69 OTH MED,LT,CURRENT USE 07/29/2016 MADELYN CARTER, RANDI Armstrong Ot Z02.71 ENCOUNTER FOR DISABILITY DETERMINATION 07/29/2016 BAIMA, UMAIR L MOVIE PROJECTIONIST Ot E78.5 HYPERLIPIDEMIA, UNSPECIFIED 07/29/2016 BAIMA, UMAIR L MOVIE PROJECTIONIST Ot I10 ESSENTIAL (PRIMARY) HYPERTENSION 07/29/2016 BAIMA, UMAIR L MOVIE PROJECTIONIST Ot I25.10 ATHSCL HEART DISEASE OF [place] CORONARY 07/29/2016 BAIMA, UMAIR L MOVIE PROJECTIONIST Ot Z72.0 TOBACCO USE 07/29/2016 BAIMA, UMAIR L MOVIE PROJECTIONIST Ot E78.5 HYPERLIPIDEMIA, UNSPECIFIED 07/29/2016 BAIMA, UMAIR L MOVIE PROJECTIONIST Ot I10 ESSENTIAL (PRIMARY) HYPERTENSION 07/29/2016 BAIMA, UMAIR L MOVIE PROJECTIONIST Ot I25.10 ATHSCL HEART DISEASE OF [place] CORONARY 07/29/2016 BAIMA, UMAIR L MOVIE PROJECTIONIST Ot L73.9 FOLLICULAR DISORDER, UNSPECIFIED 07/29/2016 BASIM GUILLEN DO Ot E66.9 OBESITY, UNSPECIFIED 07/29/2016 BASIM GUILLEN DO Ot F17.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, CHEWING TOBACCO, UN 07/29/2016 BASIM GUILLEN DO Ot I25.10 ATHSCL HEART DISEASE OF [place] CORONARY 07/29/2016 BAIMA, UMAIR L MOVIE PROJECTIONIST Ot E78.5 HYPERLIPIDEMIA, UNSPECIFIED 07/29/2016 BAIMA, UMAIR L MOVIE PROJECTIONIST Ot I10 ESSENTIAL (PRIMARY) HYPERTENSION 07/29/2016 BAIMA, UMIAR L MOVIE PROJECTIONIST Ot I25.10 ATHSCL HEART DISEASE OF [place] CORONARY 07/29/2016 BAIMA, UMAIR L MOVIE PROJECTIONIST Ot R10.31 RIGHT LOWER QUADRANT PAIN 07/29/2016 BASIM GUILLEN DO Ot E66.9 OBESITY, UNSPECIFIED 07/29/2016 BASIM GUILLEN DO Ot F17.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, CHEWING TOBACCO, UN 07/29/2016 BASIM GUILLEN DO Ot I25.10 ATHSCL HEART DISEASE OF [place] CORONARY 07/29/2016 BAIMA, UMAIR L MOVIE PROJECTIONIST Ot E78.5 HYPERLIPIDEMIA, UNSPECIFIED 07/29/2016 BAIMA, UMAIR L MOVIE PROJECTIONIST Ot I10 ESSENTIAL (PRIMARY) HYPERTENSION 07/29/2016 BAIMA, UMAIR L MOVIE PROJECTIONIST Ot I25.10 ATHSCL HEART DISEASE OF [place] CORONARY 07/29/2016 BAIMA, UMAIR L MOVIE PROJECTIONIST Ot L73.9 FOLLICULAR DISORDER, UNSPECIFIED 07/29/2016 BAIMA, UMAIR L MOVIE PROJECTIONIST Ot E78.5 HYPERLIPIDEMIA, UNSPECIFIED 07/29/2016 BAIMA, UMAIR L MOVIE PROJECTIONIST Ot I10 ESSENTIAL (PRIMARY) HYPERTENSION 07/29/2016 BAIMA, UMAIR L MOVIE PROJECTIONIST Ot I25.10 ATHSCL HEART DISEASE OF [place] CORONARY 07/29/2016 BAIMA, UMAIR L MOVIE PROJECTIONIST Ot Z72.0 TOBACCO USE 07/30/2016 BAIMA, UMAIR L MOVIE PROJECTIONIST Ot E78.5 HYPERLIPIDEMIA, UNSPECIFIED 07/30/2016 BAIMA, UMAIR L MOVIE PROJECTIONIST Ot I10 ESSENTIAL (PRIMARY) HYPERTENSION 07/30/2016 BAIMA, UMAIR L MOVIE PROJECTIONIST Ot I25.10 ATHSCL HEART DISEASE OF [place] CORONARY 07/30/2016 BAIMA, UMAIR L MOVIE PROJECTIONIST Ot L73.9 FOLLICULAR DISORDER, UNSPECIFIED 09/04/2016 CLIFF [...] GEOVANY Ot I25.10 ATHSCL HEART DISEASE OF [place] CORONARY 09/04/2016 CLIFF SANCHEZ GEOVANY Ot I25.119 ATHSCL HEART DISEASE OF [place] COR ART W 09/04/2016 CLIFF SANCHEZ GEOVANY [...] CHRONIC OBSTRUCTIVE PULMON DISEASE W ACU 09/04/2016 CLIFF SANCHEZ GEOVANY Ot J44.1 CHRONIC OBSTRUCTIVE PULMONARY DISEASE W 09/04/2016 CLIFF SANCHEZ GEOVANY Ot J44.9 CHRONIC OBSTRUCTIVE PULMONARY DISEASE, U 09/04/2016 DAVID CORONADO DOI Ot R07.89 OTHER CHEST PAIN 09/04/2016 DAVID CORONADO DOI Ot Z87.891 PERSONAL HISTORY OF NICOTINE DEPENDENCE 09/04/2016 CLIFF SANCHEZ GEOVANY Ot Z90.81 ACQUIRED ABSENCE OF SPLEEN 09/04/2016 CLIFF SANCHEZ GEOVANY Ot Z91.19 PATIENT'S NONCOMPLIANCE W [facility] MEDICAL TR 09/04/2016 CORONADO DO, GEOVANY Ot Z95.5 PRESENCE OF CORONARY ANGIOPLASTY IMPLANT 09/18/2016 LORUMAIR ANDERSON MOVIE PROJECTIONIST Ot E78.5 HYPERLIPIDEMIA, UNSPECIFIED 09/18/2016 LORUMAIR ANDERSON MOVIE PROJECTIONIST Ot F17.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, CHEWING TOBACCO, UN 09/18/2016 LORUMAIR ANDERSON MOVIE PROJECTIONIST Ot I10 ESSENTIAL (PRIMARY) HYPERTENSION 09/18/2016 LORUMAIR ANDERSON L MOVIE PROJECTIONIST Ot I25.10 ATHSCL HEART DISEASE OF [place] CORONARY 09/18/2016 LORJUSTIN UMAIR Argueta MOVIE PROJECTIONIST Ot I25.2 OLD MYOCARDIAL INFARCTION 09/18/2016 ROMOE UMAIR L MOVIE PROJECTIONIST Ot Z23 ENCOUNTER FOR IMMUNIZATION 09/18/2016 LORJUSTIN UMAIR Argueta MOVIE PROJECTIONIST Ot Z79.899 OTHER COOK PRESSURE (CURRENT) DRUG THERAPY 09/18/2016 ROMEO UMAIR L MOVIE PROJECTIONIST Ot Z91.19 PATIENT'S NONCOMPLIANCE W [facility] MEDICAL TR 09/18/2016 LORUMAIR ANDERSON MOVIE PROJECTIONIST Ot Z95.5 PRESENCE OF CORONARY ANGIOPLASTY IMPLANT 09/26/2016 LORJUSTIN UMAIR Argueta MOVIE PROJECTIONIST Ot E78.5 HYPERLIPIDEMIA, UNSPECIFIED 09/26/2016 LORJUSTIN UMAIR Argueta MOVIE PROJECTIONIST Ot I10 ESSENTIAL (PRIMARY) HYPERTENSION 09/26/2016 LORUMAIR ANDERSON MOVIE PROJECTIONIST Ot I25.10 ATHSCL HEART DISEASE OF [place] CORONARY 09/26/2016 LORUMAIR ANDERSON MOVIE PROJECTIONIST Ot Z72.0 TOBACCO USE Procedures Code Description Performed By Performed On 781017G DILATION OF 1 COR ART WITH DRUG-ELUT INT 06/14/2015 [id number] MEASURE OF CARDIAC SAMPL PRESSURE, L H 06/14/2015 [id number] FLUOROSCOPY OF MULT COR ART USING L OSM 06/14/2015 [id number] FLUOROSCOPY OF LEFT HEART USING LOW OSMO [...] Automated blood platelet mean volume measurement 9.1 [[facility] ] 7.4-10.4 Automated blood neutrophils/100 leukocytes 55 [...] blood basophils/100 leukocytes 0 % NRG Blood [place] bodies detection by light microscopy SLIGHT NR Bacterial blood culture - 09/01/16 09:35 FREE TEXT EXTERNAL SEE COMMENTS NR QUANTITY OF GROWTH Isolated [facility] Bacterial blood culture [id number] [facility] Bacterial blood culture - 09/01/16 11:01 Bacterial [...] in VLDL measurement (mass/volume) 11 mg/dL 5-40 [id number] - 09/03/16 08:45 RESULTS NEGATIVE FOR ANTIGEN AND TOXIN A/B NRG Encounters ACCT No. Visit Date/Time Discharge Status Pt. Type Provider Facility Loc./Unit Complaint [id number] 09/01/2016 11:00:00 2016 12:06:00 DIS Outpatient GEOVANY CORONADO DO [facility] 4TH PNEUMONIA [id number] 05/28/2016 18:20:00 2015 17:35:00 DIS Inpatient TAMARA SORTO MD [facility] 4TH CHEST PAIN [id number] 04/01/2016 06:13:00 2015 10:00:00 DIS Outpatient UMAIR WALTERS [facility] CATH CAD,HTN,HL [id number] 03/23/2016 19:40:00 2015 10:43:00 DIS Inpatient LETICIA PENA MD, FACC, FACP CCDS [facility] ICU CHEST PAIN, CAD [id number] 02/26/2016 14:00:00 2015 14:16:00 DIS Outpatient BASIM GUILLEN DO [facility] SLEEP IBRAHIMA [id number] 11/17/2015 00:30:00 2015 02:07:00 DIS Emergency SUMAN MORROW DO [facility] ER SOA [id number] 09/23/2015 12:12:00 2015 11:50:00 DIS Inpatient COLEMAN SAMUELS MD [facility] 4TH CHEST PAIN SOB [id number] 06/14/2015 14:21:00 2015 14:35:00 DIS Inpatient LETICIA PENA MD, FACC, FACP CCDS [facility] CSD CHEST PAIN [id number] 04/04/2015 12:53:00 2014 23:59:59 CLS Outpatient RANDI JOSHI MD [facility] RT DDU [id number] 12/23/2012 08:13:00 2012 23:59:59 CLS Outpatient UMAIR WALTERS [facility] LAB [place] [id number] 12/21/2012 10:50:00 2012 23:59:59 CLS Outpatient [id number] 07/29/2016 16:05:00 Document Registration [id number] 04/07/2016 12:04:00 ACT Outpatient UMAIR WALTERS [facility] RAD CAD,HTN,HLP,DISCOMFORT OF RT GROIN [id number] 12/17/2015 15:22:00 ACT Outpatient BASIM GUILLEN DO [facility] RT OIL EXPELLER,OBESITY,CAD [id number] 09/23/2015 13:37:00 Document Registration [id number] 07/30/2015 06:52:00 ACT Outpatient UMAIR WALTERS [facility] CARD CAD,HTN,HLP [id number] 07/16/2015 06:16:00 ACT Outpatient UMAIR WALTERS [facility] LAB CAD;HYPERTENSION;HYPERLIPIDEMIA;OIL EXPELLER [id number] 08/30/2012 16:19:00 Document Registration [id number] 07/27/2012 07:54:00 Document Registration [id number] 01/01/2010 08:35:00 Document Registration [id number] 10/16/2009 08:22:00 Document Registration
== END 2016-09-04 12:06 | disposition home or self-care (01) | DRG 190 ==
LOC: EDUNIT# 09:34 → ER 09:35 → 4TH 11:00
PROVIDERS: ADMIT Internal Medicine; ATTEND Internal Medicine
DX: J44.0 Chronic obstructive pulmonary disease with (acute) lower respiratory infection (principal); J18.9 Pneumonia, unspecified organism; E86.0 Dehydration; C91.41 Hairy cell leukemia, in remission; I47.1 Supraventricular tachycardia; J44.1 Chronic obstructive pulmonary disease with (acute) exacerbation; I25.119 Atherosclerotic heart disease of native coronary artery with unspecified angina pectoris; R07.89 Other chest pain; I25.2 Old myocardial infarction; I10 Essential (primary) hypertension; F41.9 Anxiety disorder, unspecified; F17.220 Nicotine dependence, chewing tobacco, uncomplicated; I49.3 Ventricular premature depolarization; I49.1 Atrial premature depolarization; I48.91 Unspecified atrial fibrillation; E78.00 Pure hypercholesterolemia, unspecified; H91.90 Unspecified hearing loss, unspecified ear; Z90.81 Acquired absence of spleen; Z95.5 Presence of coronary angioplasty implant and graft; Z91.19 Patient's noncompliance with other medical treatment and regimen
CPT/HCPCS: 36415; 71020; 80053; 80061; 83605; 83735; 84484; 85007; 85025; 85027; 87040; 87324; 87449; 93005; 94640; 94664; 94760; 96361; 96365

== ENCOUNTER 2017-01-11 16:14 | Day surgery (SDC) | payer MEDICARE, OTHER ==
[2017-01-11] VITALS (11 sets, daily range): BP systolic 120–167; BP diastolic 62–108
[~2017-01-11] VITALS: Ht 175.3 cm; Wt 115.4 kg
[~2017-01-11 16:14] MED LIST changes: +CEFD300C3 PO; +CHLO1TAB74 PO; +D ME PO; -METO-272 PO; -METO-274 PO; +METO-370 PO; +METO-395 PO; +PRED10TA22 PO; +[UNRECOGNIZED DRUG - CODE] PO
--- OUTSIDE RECORDS SUMMARY | 2017-01-11 16:19 | XMS REPORT | Clinical Summary ---
Author Author [facility] Organization [facility] Address Unknown Phone Unavailable Care Team Providers [employer] It [employer] Project Manager Name Role Phone PCP Unavailable Source Comments Some departments are not documenting in the electronic medical record. If you do not see the information that you expected, contact Release of Information in the Health Information Management department at [phone] for further assistance in locating additional records.[facility] Allergies Not on File Current Medications Not on file Active Problems Not on file Social History Tobacco Use Types Packs/Day Years Used Date Never Assessed Sex Assigned at Date Recorded Not on file Last Filed Vital Signs Not on file Plan of Treatment Health Maintenance Due Date Last Done Comments HEPATITIS C SCREENING 1956 PHYSICAL (COMPREHENSIVE) 1963 EXAM PERTUSSIS VACCINE 1967 TETANUS VACCINE 1973 COLORECTAL CANCER 2006 SCREENING SHINGLES VACCINE 2016 INFLUENZA VACCINE 01/30/2017 Results Not on filefrom Last 3 Months
--- NOTE | 2017-01-11 16:31 | ED Chest Pain ---
General Chief Complaint: Chest Pain Stated Complaint: CHEST PAIN Source: patient, EMS Exam Limitations: no limitations History of Present Illness Time seen by provider: 16:15 Initial Comments Here with report of chest pain that started at about 10 a.m. this morning. Describes moderate pressure. Has persisted. Did not have nitroglycerin at home and ultimately called EMS. EMS noted that his blood pressure was high. He did receive nitroglycerin sublingual as well as aspirin. This did not change his pain. Ultimately had 50 g of fentanyl IV and this did help his pain somewhat. Noted to be diaphoretic. Reports shortness of breath even with minimal activity. Denies nausea, vomiting, or diarrhea. Does have fever and mild cough. States the last felt like this when he had pneumonia. Timing/Duration: 4-6 hours, constant, getting worse Severity/Quality: moderate, severe Location: central Radiation: no radiation Prior CP/Workup: cardiac cath ASA po SYSTEMS ADMIN: Yes NTG SL SYSTEMS ADMIN: Yes Allergies and Home Medications Allergies Coded Allergies: No Known Drug Allergies (Verified , 09/23/15) Home Medications Amlodipine Besylate 10 Mg Tablet, 10 MG PO DAILY, (Reported) LAST FILLED #90 04-21-16 Aspirin 81 Mg Tab.chew, 81 MG PO DAILY, (Reported) Atorvastatin Calcium 40 Mg Tablet, 40 MG PO HS, (Reported) LAST FILLED 03/19/16 #30 Cefdinir 300 Mg Capsule, 300 MG PO BID, #8 Prescribed by: GEOVANY CORONADO on 09/04/16 1129 Chlorphenir/Phenyleph/Aspirin 1 Each Tablet.eff, 2 TAB PO Q4H PRN for CONGESTION , (Reported) Clopidogrel Bisulfate 75 Mg Tablet, 75 MG PO DAILY, (Reported) LAST FILLED 02/01/16 #90 D-Methorphan/Acetamin/Doxylamn 237 Ml Liquid, 30 ML PO Q6H PRN for COLD, ( Reported) Isosorbide Mononitrate 30 Mg Tab.er.24h, 30 MG PO DAILY, (Reported) LAST FILLED 06-03-16 #30 Losartan Potassium 100 Mg Tablet, 100 MG PO DAILY, (Reported) LAST FILLED 06-03-16 #30 Metoprolol Succinate 100 Mg Tab.er.24h, 100 MG PO BID, (Reported) LAST FILLED 06-03-16 #60 Nitroglycerin 0.4 Mg Tab.subl, 0.4 MG SL UD PRN for CHEST PAIN, (Reported) Prednisone 10 Mg Tab.ds.pk, 10 MG PO DAILY, #21 Take 6 tabs(60mg)daily,decrease by 1 tab(10MG)daily. Prescribed by: GEOVANY CORONADO on 09/04/16 1129 Review of Systems Constitutional: see HPI, No chills, diaphoresis, No fever EENTM: No Symptoms Reported Respiratory: See HPI, SOA With Exertion, Denies SOA at Rest Cardiovascular: Chest Pain Gastrointestinal: No Symptoms Reported, Denies Vomiting Genitourinary: No Symptoms Reported Musculoskeletal: no symptoms reported Skin: no symptoms reported Psychiatric/Neurological: No Symptoms Reported Endocrine: No Symptoms Reported All Other Systems Reviewed Negative Unless Noted: Yes Past Atvgauo-Hffuhb-Aeqepg Hx Patient Social History Alcohol Use: Occasionally Uses Recreational Drug Use: No Smoking Status: Current Everyday Smoker Type Used: Cigarettes, Smokeless Tobacco Former Smoker/When Quit: May 03, 2012 Recent Hopitalizations: No Immunizations Up To Date Tetanus Booster (TDap): Unknown PED Vaccines UTD: No Date of Pneumonia Vaccine: Jul 27, 2012 Date of Influenza Vaccine: Mar 29, 2016 Seasonal Allergies Seasonal Allergies: No Surgeries HX Surgeries: Yes (SPLENECTOMY, BALOON) Surgeries: Abdominal, Adenoidectomy, Cardiac, Coronary Stent, Tonsillectomy Respiratory Hx Respiratory Disorders: Yes Respiratory Disorders: COPD Cardiovascular Hx Cardiac Disorders: Yes (stents/ballooned) Cardiac Disorders: Coronary Artery Disease, Heart Attack, High Cholesterol, Hypertension Neurological Hx Neurological Disorders: No Reproductive System Hx Reproductive Disorders: No Sexually Transmitted Disease: No HIV/AIDS: No Genitourinary Hx Genitourinary Disorders: No Gastrointestinal Hx Gastrointestinal Disorders: No Musculoskeletal Hx Musculoskeletal Disorders: No Endocrine Hx Endocrine Disorders: No HEENT HX ENT Disorders: No Loss of Vision: Denies Hearing Impairment: Hard of Hearing 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) Cancer: Leukemia Psychosocial Hx Psychiatric Problems: Yes Behavioral Health Disorders: Anxiety Integumentary HX Skin/Integumentary Disorder: No Blood Transfusions Hx Blood Disorders: Yes (HX OF LEUKEMIA) Adverse Reaction to a Blood Tr: No Reviewed Nursing Assessment Reviewed/Agree w Nursing PMH: Yes Family Medical History Family Medial History: Arthritis 19 FATHER 19 MOTHER Cardiovascular disease 19 FATHER Completed stroke 19 FATHER, Onset:Unknown (1981) Deadly fall G8 BROTHER (9 years) Hypercholesterolemia 19 FATHER Hypertension 19 FATHER Myocardial infarction 19 FATHER 19 MOTHER (C.O.D.) Physical Exam Vital Signs Vital Sign - Last 12Hours 01/11/17 16:15 Temp 99.2 Pulse 109 Resp 14 B/P (MAP) 142/101 Pulse Ox 96 O2 Delivery Nasal Cannula O2 Flow Rate 2.0 Capillary Refill : General Appearance: No Apparent Distress, WD/WN HEENT: PERRL/EOMI, Pharynx Normal Neck: Non Tender, Supple Respiratory: Lungs Clear, Normal Breath Sounds Cardiovascular: Regular Rate, Rhythm, No Murmur Gastrointestinal: Non Tender, Soft Extremity: Normal Range of Motion, Non Tender, No Calf Tenderness Neurologic/Psychiatric: Alert, Oriented x3 Skin: Normal Color, Warm/Dry Focused Exam Lactic Acid Level Laboratory Tests Test 01/11/17 16:40 Lactic Acid Level 1.24 MMOL/L (0.50-2.00) Progress/Results/Core Measures Results/Orders Lab Results Laboratory Tests Test 01/11/17 16:25 01/11/17 16:40 Range/Units White Blood Count 11.5 H 4.3-11.0 10^3/uL Red Blood Count 5.48 4.35-5.85 10^6/uL Hemoglobin 16.7 13.3-17.7 G/DL Hematocrit 49 40-54 % Mean Corpuscular Volume 90 80-99 FL Mean Corpuscular Hemoglobin 31 25-34 PG Mean Corpuscular Hemoglobin Concent 34 32-36 G/DL Red Cell Distribution Width 14.2 10.0-14.5 % Platelet Count 368 130-400 10^3/uL Mean Platelet Volume 9.0 7.4-10.4 FL Neutrophils (%) (Auto) 63 42-75 % Lymphocytes (%) (Auto) 23 12-44 % Monocytes (%) (Auto) 11 0-12 % Eosinophils (%) (Auto) 3 0-10 % Basophils (%) (Auto) 1 0-10 % Neutrophils # (Auto) 7.3 1.8-7.8 X 10^3 Lymphocytes # (Auto) 2.6 1.0-4.0 X 10^3 Monocytes # (Auto) 1.2 H 0.0-1.0 X 10^3 Eosinophils # (Auto) 0.4 H 0.0-0.3 10^3/uL Basophils # (Auto) 0.1 0.0-0.1 10^3/uL Prothrombin Time 12.9 12.2-14.7 SEC INR Comment 1.0 0.8-1.4 Activated Partial Thromboplast Time 25 24-35 SEC D-Dimer 0.36 0.00-0.49 UG/ML Sodium Level 135 135-145 MMOL/L Potassium Level 4.2 3.6-5.0 MMOL/L Chloride Level 102 98-107 MMOL/L Carbon Dioxide Level 23 21-32 MMOL/L Anion Gap 10 5-14 MMOL/L Blood Urea Nitrogen 11 7-18 MG/DL Creatinine 1.17 0.60-1.30 MG/DL Estimat Glomerular Filtration Rate > 60 BUN/Creatinine Ratio 9 Glucose Level 114 H 70-105 MG/DL Calcium Level 9.5 8.5-10.1 MG/DL Magnesium Level 2.4 1.8-2.4 MG/DL Total Bilirubin 1.3 H 0.1-1.0 MG/DL Aspartate Amino Transf (AST/SGOT) 22 5-34 U/L Alanine Aminotransferase (ALT/SGPT) 24 0-55 U/L Alkaline Phosphatase 97 40-136 U/L Myoglobin 67.4 10.0-92.0 NG/ML Troponin I < 0.30 <0.30 NG/ML B-Type Natriuretic Peptide 14.3 <100.0 PG/ML Total Protein 7.5 6.4-8.2 GM/DL Albumin 4.2 3.2-4.5 GM/DL Amylase Level 49 25-125 U/L Lipase 22 8-78 U/L Lactic Acid Level 1.24 0.50-2.00 MMOL/L My Orders Orders - DAVID NEFF MD Cbc With Automated Diff (01/11/17 16:23) Magnesium (01/11/17 16:23) Chest 1 View, Ap/Pa Only (01/11/17 16:23) Ekg Tracing (01/11/17 16:23) Cardiac Profile 1 (01/11/17 16:23) Comprehensive Metabolic Panel (01/11/17 16:23) Myoglobin Serum (01/11/17 16:23) Protime With Inr (01/11/17 16:23) Partial Thromboplastin Time (01/11/17 16:23) O2 (01/11/17 16:23) Monitor-Rhythm Ecg Trace Only (01/11/17 16:23) Lipid Panel (01/12/17 06:00) Saline Lock/Iv-Start (01/11/17 16:23) Lipase (01/11/17 16:23) Amylase (01/11/17 16:23) BNP (01/11/17 16:23) Fibrin Degradation Products (01/11/17 16:23) Lactic Acid Analyzer (01/11/17 16:23) Blood Culture (01/11/17 16:23) Vital Signs/I&O Vital Sign - Last 12Hours 01/11/17 01/11/17 01/11/17 16:15 16:15 16:40 Temp 99.2 Pulse 109 Resp 14 B/P (MAP) 142/101 Pulse Ox 96 96 O2 Delivery Nasal Cannula Room Air Nasal Cannula O2 Flow Rate 2.0 2.0 2.00 Progress Note : Progress Note Seen and evaluated. IV, labs, EKG and chest x-ray ordered. Patient received aspirin and nitroglycerin prior to arrival. Also received fentanyl. Pain is improving now. Monitor patient. 1752: Findings as above. Improved with respect to pain. Concerning findings of a history of previous stent and previous presentations similar when he had have the stents placed. Also noted have diaphoresis today. Labs overall it findings of the EKG but monitoring is indicated. This was discussed with Dr. Sherman and she agrees. Accepts patient , observation status, step down unit. Patient agrees with plan. ECG Initial ECG Impression Date: Jan 11, 2017 Initial ECG Impression Time: 16:31 Initial ECG Rate: 96 Comment Sinus rhythm with normal axis. No evidence of ST elevation VA. Similar to previous of 01 September 2016 except improved rate. Interpreted by me. Diagnostic Imaging Diagonstic Imaging: Xray Plain Films/CT/US/NM/MRI: chest Comments [facility] [place], [place] NAME: LILIANE CAVAZOS [facility] REC#: [id number] PT STATUS: REG ER : 1955 PHYSICIAN: DAVID NEFF MD ADMIT DATE: 01/11/17/ER Draft Date of Exam:01/11/17 CHEST 1 VIEW, AP/PA ONLY INDICATION: Chest pain. Shortness of air. COMPARISON: 09/02/2016. EXAMINATION: Single frontal view of the chest was obtained. FINDINGS: Normal heart size and pulmonary vascularity. The lungs are well aerated and clear. No large pleural effusion or pneumothorax is seen. The visualized osseous structures show no acute abnormalities. IMPRESSION: No acute cardiopulmonary process. Dictated on workstation # [id number] Dict: 01/11/17 172 Trans: 01/11/17 172 [facility] [id number] Interpreted by: JULIO ROA Electronically signed by: Departure Impression Impression: Primary Impression: Chest pain Qualified Codes: R07.9 - Chest pain, unspecified Disposition: ADMITTED INPATIENT Condition: Stable Admissions Decision to Admit Reason: Admit from ER (General) Decision to Admit/Date: Jan 11, 2017 Time/Decision to Admit Time: 17:57 Departure-Patient Inst. Referrals: TRISTEN AU DO (PCP/Family) Primary Care Physician DAVID NEFF MD Jan 11, 2017 16:31
[2017-01-11 16:35] LABS: BASOPHILS # (AUTO) 0.1 10^3/uL (0.0-0.1); BASOPHILS % (AUTO) 1 % (0-10); EOSINOPHILS # (AUTO) 0.4 10^3/uL (0.0-0.3); EOSINOPHILS % (AUTO) 3 % (0-10); LYMPHOCYTES # (AUTO) 2.6 X 10^3 (1.0-4.0); LYMPHOCYTES % (AUTO) 23 % (12-44); MEAN CORPUSCULAR HEMOGLOBIN 31 PG (25-34); MEAN CORPUSCULAR HGB CONC 34 G/DL (32-36); MEAN CORPUSCULAR VOLUME 90 FL (80-99); MONOCYTES # (AUTO) 1.2 X 10^3 (0.0-1.0); MONOCYTES % (AUTO) 11 % (0-12); NEUTROPHILS # (AUTO) 7.3 X 10^3 (1.8-7.8); NEUTROPHILS % (AUTO) 63 % (42-75); PLATELET COUNT 368 10^3/uL (130-400); RED BLOOD COUNT 5.48 10^6/uL (4.35-5.85); RED CELL DISTRIBUTION WIDTH 14.2 % (10.0-14.5); WHITE BLOOD COUNT 11.5 10^3/uL (4.3-11.0)
[2017-01-11 16:46] LABS: PROTHROMBIN TIME PATIENT 12.9 SEC (12.2-14.7)
[2017-01-11 16:55] LABS: ALANINE AMINOTRANSFERASE 24 U/L (0-55); ALBUMIN 4.2 GM/DL (3.2-4.5); AMYLASE 49 U/L (25-125); ANION GAP 10 MMOL/L (5-14); ASPARTATE AMINO TRANSFERASE 22 U/L (5-34); BILIRUBIN,TOTAL 1.3 MG/DL (0.1-1.0); BLOOD UREA NITROGEN 11 MG/DL (7-18); BUN/CREATININE RATIO 9; CALCIUM 9.5 MG/DL (8.5-10.1); CARBON DIOXIDE 23 MMOL/L (21-32); CHLORIDE 102 MMOL/L (98-107); CREATININE SERUM 1.17 MG/DL (0.60-1.30); GFR ESTIMATED > 60; GLUCOSE 114 MG/DL (70-105); LIPASE 22 U/L (8-78); MAGNESIUM 2.4 MG/DL (1.8-2.4); POTASSIUM 4.2 MMOL/L (3.6-5.0); SODIUM 135 MMOL/L (135-145); TOTAL PROTEIN 7.5 GM/DL (6.4-8.2)
[2017-01-11 17:03] LABS: MYOGLOBIN SERUM 67.4 NG/ML (10.0-92.0)
--- NOTE | 2017-01-11 17:27 | Diagnostic Imaging Report ---
INDICATION: Chest pain. Shortness of air. COMPARISON: 09/02/2016. EXAMINATION: Single frontal view of the chest was obtained. FINDINGS: Normal heart size and pulmonary vascularity. The lungs are well aerated and clear. No large pleural effusion or pneumothorax is seen. The visualized osseous structures show no acute abnormalities. IMPRESSION: No acute cardiopulmonary process. Dictated by: Dictated on workstation # [id number]
--- OUTSIDE RECORDS SUMMARY | 2017-01-11 18:29 | XMS REPORT | Clinical Summary ---
Author Author [facility] Organization [facility] Address Unknown Phone Unavailable Care Team Providers Care Briquette Molder Name Role Phone PCP Unavailable Source Comments Some departments are not documenting in the electronic medical record. If you do not see the information that you expected, contact Release of Information in the Health Information Management department at [phone] for further assistance in locating additional records.[facility] Allergies Not on File Current Medications [...]
[2017-01-11] MEDS ORDERED: FLUT1DIS26 IH (19:33)
[2017-01-11] MEDS ORDERED: RT-ALBUINH IH (19:33)
[2017-01-11] MEDS: NS IV 1000 ML 1,000 ML IV SCH (20:32)
[2017-01-11] MEDS ORDERED: ONDANSETRON 4 MG/2 ML (SDV) Z0FRAN IV PRN (20:45)
[2017-01-11] MEDS ORDERED: NS IV 1000 ML 1,000 ML IV SCH (20:45)
[2017-01-11] MEDS ORDERED: NITROGLYCERIN SUBLINGUAL 0.4 MG TAB (NITROSTAT) SL PRN (20:45)
[2017-01-11] MEDS ORDERED: morphine INJ 4 MG/ML 1 ML (VIAL/SYRINGE) IV PRN (20:45)
[2017-01-11] MEDS ORDERED: CLOPIDOGREL 75 MG (PLAVIX) TABLET ONE (21:16)
[2017-01-11] MEDS ORDERED: meTOprolol SUCCINATE 100 MG (TOPROL XL) TAB PO ONE (21:17)
[2017-01-11] MEDS: CLOPIDOGREL 75 MG (PLAVIX) TABLET PO SCH (21:27)
[2017-01-11] MEDS: meTOprolol SUCCINATE 100 MG (TOPROL XL) TAB PO SCH (21:28)
[2017-01-11] MEDS: ATORVASTATIN 40 MG (LIPITOR) TABLET PO ONE ×2 (21:30→21:31)
[2017-01-11 23:28] LABS: MYOGLOBIN SERUM 65.9 NG/ML (10.0-92.0)
[2017-01-12 04:00] VITALS: BP 156/79
[2017-01-12 05:47] LABS: BASOPHILS # (AUTO) 0.1 10^3/uL (0.0-0.1); BASOPHILS % (AUTO) 1 % (0-10); EOSINOPHILS # (AUTO) 0.5 10^3/uL (0.0-0.3); EOSINOPHILS % (AUTO) 5 % (0-10); LYMPHOCYTES # (AUTO) 2.1 X 10^3 (1.0-4.0); LYMPHOCYTES % (AUTO) 25 % (12-44); MEAN CORPUSCULAR HEMOGLOBIN 31 PG (25-34); MEAN CORPUSCULAR HGB CONC 33 G/DL (32-36); MEAN CORPUSCULAR VOLUME 92 FL (80-99); MEAN PLATELET VOLUME 9.1 FL (7.4-10.4); MONOCYTES % (AUTO) 12 % (0-12); NEUTROPHILS # (AUTO) 4.8 X 10^3 (1.8-7.8); NEUTROPHILS % (AUTO) 57 % (42-75); PLATELET COUNT 334 10^3/uL (130-400); RED BLOOD COUNT 4.96 10^6/uL (4.35-5.85); RED CELL DISTRIBUTION WIDTH 14.2 % (10.0-14.5); WHITE BLOOD COUNT 8.5 10^3/uL (4.3-11.0)
[2017-01-12 06:01] LABS: ALANINE AMINOTRANSFERASE 20 U/L (0-55); ALBUMIN 3.6 GM/DL (3.2-4.5); ANION GAP 10 MMOL/L (5-14); ASPARTATE AMINO TRANSFERASE 18 U/L (5-34); BILIRUBIN,TOTAL 0.6 MG/DL (0.1-1.0); BLOOD UREA NITROGEN 14 MG/DL (7-18); BUN/CREATININE RATIO 12; CALCIUM 8.8 MG/DL (8.5-10.1); CARBON DIOXIDE 23 MMOL/L (21-32); CHLORIDE 103 MMOL/L (98-107); CREATININE SERUM 1.15 MG/DL (0.60-1.30); GFR ESTIMATED > 60; GLUCOSE 111 MG/DL (70-105); POTASSIUM 4.3 MMOL/L (3.6-5.0); SODIUM 136 MMOL/L (135-145); TOTAL PROTEIN 6.2 GM/DL (6.4-8.2)
[2017-01-12 06:05] LABS: CHOLESTEROL 178 MG/DL (< 200); DIRECT LDL 138 MG/DL (1-129); TRIGLYCERIDES 98 MG/DL (<150); VLDL CHOLESTEROL 20 MG/DL (5-40)
[2017-01-12 07:31] VITALS: BP 177/114
[2017-01-12] MEDS: ATORVASTATIN 40 MG (LIPITOR) TABLET PO SCH (07:45)
[2017-01-12] MEDS: ISOSORBIDE MONONITRATE 30 MG (IMDUR) TAB PO SCH (07:45)
[2017-01-12] MEDS: amLODIPine 10 MG (NORVASC) TAB PO SCH (07:46)
[2017-01-12] MEDS: ASPIRIN 81 MG CHEW (CHILDREN'S ASA) PO SCH (07:46)
[2017-01-12] MEDS: meTOprolol SUCCINATE 100 MG (TOPROL XL) TAB PO SCH ×2 (07:46→20:06)
[2017-01-12] MEDS: LOSARTAN 50 MG (COZAAR) TAB PO SCH (07:46)
[2017-01-12] MEDS ORDERED: NON-FORMULARY MEDICATION 1 EA EA (Losartan Potassium 100 MG) PO SCH (09:00)
[2017-01-12] MEDS ORDERED: ASPIRIN E.C. 325 MG (ECOTRIN) TABLET PO SCH (09:00)
[2017-01-12] MEDS ORDERED: CLOPIDOGREL 75 MG (PLAVIX) TABLET PO SCH (09:00)
--- NOTE | 2017-01-12 12:37 | Consultation-Cardiology ---
HPI-Cardiology Cardiology Consultation: Date of Consultation 01/12/17 Date of Admission 01-11-17 Attending Physician Yissel Sherman MD Admitting Physician Shavon Reed DO Consulting Physician Kamilah Johnston MD HPI: Chief Complaint: Chest pain Review of Systems-Cardiology All Other Systems Reviewed Negative Unless Noted: Yes MZS-Lxxmyh-Zkowxh Hx Patient Social History Alcohol Use: Occasionally Uses Recreational Drug Use: No Smoking Status: Former Smoker Former smoker/When Quit: May 03, 2012 Type Used: Cigarettes, Smokeless Tobacco 2nd Hand Smoke Exposure: No Recent Foreign Travel: No Recent Infectious Disease Expo: No Hospitalization with Isolation: Denies Physical Abuse Screen: No Sexual Abuse: No Immunizations Up To Date Tetanus Booster (TDap): Unknown Date of Pneumonia Vaccine: Jul 27, 2012 Date of Influenza Vaccine: Mar 29, 2016 Past Medical History PMH As described under Assessment. Family Medical History Family Medical History: Family history of CAD and htn and stroke and DM II. Father may have had an MN in his 60s Family History: Arthritis 19 FATHER 19 MOTHER Cardiovascular disease 19 FATHER Completed stroke 19 FATHER, Onset:Unknown (1981) Deadly fall G8 BROTHER (9 years) Hypercholesterolemia 19 FATHER Hypertension 19 FATHER Myocardial infarction 19 FATHER 19 MOTHER (C.O.D.) Allergies and Home Medications Allergies Coded Allergies: No Known Drug Allergies (Verified , 09/23/15) Home Medications Aspirin 81 Mg Tab.chew, 81 MG PO DAILY, (Reported) Clopidogrel Bisulfate 75 Mg Tablet, 75 MG PO HS, (Reported) LAST FILLED 09/19/16 #90 Losartan Potassium 100 Mg Tablet, 100 MG PO DAILY, (Reported) LAST FILLED 09/19/16 #30 Metoprolol Succinate 100 Mg Tab.er.24h, 100 MG PO BID, (Reported) Nitroglycerin 0.4 Mg Tab.subl, 0.4 MG SL UD PRN for CHEST PAIN, (Reported) Physical Exam-Cardiology Physical Exam Vital Signs/I&O Vital Sign - Last 12Hours 01/12/17 01/12/17 01/12/17 01/12/17 01:00 04:00 04:00 07:00 Temp 98.0 Pulse 73 80 85 Resp 19 B/P (MAP) 156/79 Pulse Ox 96 O2 Delivery Room Air Room Air 01/12/17 01/12/17 01/12/17 07:30 07:30 07:31 Temp 97.1 Pulse 84 Resp 20 B/P (MAP) 177/114 Pulse Ox 98 98 98 O2 Delivery Room Air Room Air Room Air Intake and Output 01/12/17 00:00 Intake Total 940 ml Balance 940 ml Capillary Refill : Less Than 3 Seconds Data Review Labs Laboratory Tests 01/11/17 16:25: White Blood Count 11.5H, Red Blood Count 5.48, Hemoglobin 16.7, Hematocrit 49, Mean Corpuscular Volume 90, Mean Corpuscular Hemoglobin 31, Mean Corpuscular Hemoglobin Concent 34, Red Cell Distribution Width 14.2, Platelet Count 368, Mean Platelet Volume 9.0, Neutrophils (%) (Auto) 63, Lymphocytes (%) (Auto) 23, Monocytes (%) (Auto) 11, Eosinophils (%) (Auto) 3, Basophils (%) (Auto) 1, Neutrophils # (Auto) 7.3, Lymphocytes # (Auto) 2.6, Monocytes # (Auto) 1.2H, Eosinophils # (Auto) 0.4H, Basophils # (Auto) 0.1, Prothrombin Time 12.9, INR Comment 1.0, Activated Partial Thromboplast Time 25, D-Dimer 0.36, Sodium Level 135, Potassium Level 4.2, Chloride Level 102, Carbon Dioxide Level 23, Anion Gap 10, Blood Urea Nitrogen 11, Creatinine 1.17, Estimat Glomerular Filtration Rate > 60, BUN/Creatinine Ratio 9, Glucose Level 114H, Calcium Level 9.5, Magnesium Level 2.4, Total Bilirubin 1.3H, Aspartate Amino Transf (AST/SGOT) 22 , Alanine Aminotransferase (ALT/SGPT) 24, Alkaline Phosphatase 97, Myoglobin 67.4, Troponin I < 0.30, B-Type Natriuretic Peptide 14.3, Total Protein 7.5, Albumin 4.2, Amylase Level 49, Lipase 22 01/11/17 16:40: Lactic Acid Level 1.24 01/11/17 22:40: Myoglobin 65.9, Troponin I < 0.30 01/12/17 05:00: White Blood Count 8.5, Red Blood Count 4.96, Hemoglobin 15.2, Hematocrit 46, Mean Corpuscular Volume 92, Mean Corpuscular Hemoglobin 31, Mean Corpuscular Hemoglobin Concent 33, Red Cell Distribution Width 14.2, Platelet Count 334, Mean Platelet Volume 9.1, Neutrophils (%) (Auto) 57, Lymphocytes (%) (Auto) 25, Monocytes (%) (Auto) 12, Eosinophils (%) (Auto) 5, Basophils (%) (Auto) 1, Neutrophils # (Auto) 4.8, Lymphocytes # (Auto) 2.1, Monocytes # (Auto) 1.0, Eosinophils # (Auto) 0.5H, Basophils # (Auto) 0.1, Sodium Level 136, Potassium Level 4.3, Chloride Level 103, Carbon Dioxide Level 23, Anion Gap 10, Blood Urea Nitrogen 14, Creatinine 1.15, Estimat Glomerular Filtration Rate > 60, BUN/ Creatinine Ratio 12, Glucose Level 111H, Calcium Level 8.8, Total Bilirubin 0.6 , Aspartate Amino Transf (AST/SGOT) 18, Alanine Aminotransferase (ALT/SGPT) 20, Alkaline Phosphatase 97, Total Protein 6.2L, Albumin 3.6, Triglycerides Level 98 , Cholesterol Level 178, LDL Cholesterol Direct 138H, VLDL Cholesterol 20, HDL Cholesterol 35L A/P-Cardiology Assessment/Admission Diagnosis Chest pain of undetermined etiology Coronary artery disease. Cardiac cath of 04-01-16 the proximal and mid LAD artery had 80% stenosis, to which balloon angioplasty was carried out; that reduced the stenosis to less than 50%. The distal LAD has 70% stenosis where the vessel is tortuous and of a small caliber and this vessel was not intervened on. The left Cx artery has a patent stent in its mid portion known to be a Promus 3 x 8 mm stent placed in 2012. The second OM branch has 70 to 80 % ostial and proximal stenosis. The RCA is dominant and has a patent stent known to be Promus 3 x 20mm stent placed in June 2015. Distal to the stent, the RCA has 60-70% stenosis. LVEF 50-55%. Mild elevation of LVEDP. No significant MR. Echo on 06/15/15 showed: Technically somewhat difficult study, moderate impairment of global left ventricular systolic function with an ejection fraction approximately 40%, posterobasal hypokinesis, trivial, mitral and tricuspid regurgitation, no evidence of significant valvular stenosis Hyperlipidemia - statin, followed by his PCP Chewing tobacco use H/o noncompliance Essential hypertension, likely with a component of white coat hypertension H/O hairy cell leukemia H/O spleenectomy [place] of 07-30-15 is normal bilat 24 Hour Holter study of 07-30-15 showed NSR with an average HR of 78 bpm. Infrequent PVC's and PAC's that appear asymptomatic. Brief (up to 6 beat) runs of PSVT or A-fib during sleep hours. No VT, significant bradycardia. No significant ECG changes during episodes of palpitations Refusal to take OAC Clinical Quality Measures AMI/AHF: ASA po Prior to arrival: Yes DVT/VTE Risk/Contraindication: Risk Factor Score Per Nursin RFS Level Per Nursing on Admit: 3=High UMAIR WALTERS Jan 12, 2017 12:37
--- NOTE | 2017-01-12 12:54 | Consultation-Cardiology ---
HPI-Cardiology Cardiology Consultation: Date of Consultation 01/12/17 Time Seen by Provider: 12:20 Date of Admission Attending Physician Yissel Sherman MD Admitting Physician Shavon Reed DO Consulting Physician LETICIA PENA MD, MA, FACP, FACC, FSCAI, CCDS HPI: Chief Complaint: Chest pain 61 yo man with upper mid sternal chest discomfort radiating down the L arm, occurring during exertion, improved with NTG and morphine in the ER, lasting more than an hour, associated with some dizziness and diaphoresis, without subsequent recurrence Has chronic mod exertional shortness of breath Denies palp or syncope Has chronic mild to mod intermittent bilat leg swelling Review of Systems-Cardiology Review of Systems Constitutional: As described under HPI Eyes: No vision change Ears/Nose/Throat: No ear discharge, No nasal drainage, No recent hearing loss, No ulcerations Respiratory: As described under HPI Cardiovascular: As described under HPI Gastrointestinal: No constipation, No diarrhea, No nausea, No vomiting, No stool coloration changes Genitourinary: No dysuria, No hematuria, No urine frequency changes Musculoskeletal: back pain (chronic ), joint pain (chronic) Skin: No rash, No ulcerations Psychiatric/Neurological: No anxiety, No depression, No focal weakness, No seizure, No syncope Hematologic: No bleeding abnormalities All Other Systems Reviewed Negative Unless Noted: Yes CAE-Giskvi-Aogwlz Hx Patient Social History Alcohol Use: Occasionally Uses Recreational Drug Use: No Smoking Status: Former Smoker Former smoker/When Quit: May 03, 2012 Type Used: Cigarettes, Smokeless Tobacco 2nd Hand Smoke Exposure: No Recent Foreign Travel: No Recent Infectious Disease Expo: No Hospitalization with Isolation: Denies Physical Abuse Screen: No Sexual Abuse: No Immunizations Up To Date Tetanus Booster (TDap): Unknown Date of Pneumonia Vaccine: Jul 27, 2012 Date of Influenza Vaccine: Mar 29, 2016 Past Medical History PMH As described under Assessment. Family Medical History Family Medical History: Family history of CAD and htn and stroke and DM II. Father may have had an IA in his 60s Family History: Arthritis 19 FATHER 19 MOTHER Cardiovascular disease 19 FATHER Completed stroke 19 FATHER, Onset:Unknown (1981) Deadly fall G8 BROTHER (9 years) Hypercholesterolemia 19 FATHER Hypertension 19 FATHER Myocardial infarction 19 FATHER 19 MOTHER (C.O.D.) Allergies and Home Medications Allergies Coded Allergies: No Known Drug Allergies (Verified , 09/23/15) Home Medications Aspirin 81 Mg Tab.chew, 81 MG PO DAILY, (Reported) Clopidogrel Bisulfate 75 Mg Tablet, 75 MG PO HS, (Reported) LAST FILLED 09/19/16 #90 Losartan Potassium 100 Mg Tablet, 100 MG PO DAILY, (Reported) LAST FILLED 09/19/16 #30 Metoprolol Succinate 100 Mg Tab.er.24h, 100 MG PO BID, (Reported) Nitroglycerin 0.4 Mg Tab.subl, 0.4 MG SL UD PRN for CHEST PAIN, (Reported) Physical Exam-Cardiology Physical Exam Vital Signs/I&O Vital Sign - Last 12Hours 01/12/17 01/12/17 01/12/17 01/12/17 01:00 04:00 04:00 07:00 Temp 98.0 Pulse 73 80 85 Resp 19 B/P (MAP) 156/79 Pulse Ox 96 O2 Delivery Room Air Room Air 01/12/17 01/12/17 01/12/17 07:30 07:30 07:31 Temp 97.1 Pulse 84 Resp 20 B/P (MAP) 177/114 Pulse Ox 98 98 98 O2 Delivery Room Air Room Air Room Air Intake and Output 01/12/17 00:00 Intake Total 940 ml Balance 940 ml Capillary Refill : Less Than 3 Seconds Constitutional: AAO x 3, well-developed, well-nourished HEENT: PERRL, EOMI, hearing is well preserved Neck: carotid pulses are 2 + bilaterally, with good upstrokes Respiratory: No accessory muscle use, lungs clear to percussion, lungs clear to auscultation Cardiovascular: regular rate-rhythm, S1 and S2, systolic murmur (faint CINDI at cardiac base) Gastrointestinal: No tender, No guarding, No rebound, audible bowel sounds Extremities: pedal edema (mild to mod, bilateral), No clubbing, No cyanosis Neurologic/Psychiatric: grossly intact, power is 5/5 both on sides Skin: No rash on exposed areas, No ulcerations on exposed areas Data Review Labs Laboratory Tests 01/11/17 16:25: White Blood Count 11.5H, Red Blood Count 5.48, Hemoglobin 16.7, Hematocrit 49, Mean Corpuscular Volume 90, Mean Corpuscular Hemoglobin 31, Mean Corpuscular Hemoglobin Concent 34, Red Cell Distribution Width 14.2, Platelet Count 368, Mean Platelet Volume 9.0, Neutrophils (%) (Auto) 63, Lymphocytes (%) (Auto) 23, Monocytes (%) (Auto) 11, Eosinophils (%) (Auto) 3, Basophils (%) (Auto) 1, Neutrophils # (Auto) 7.3, Lymphocytes # (Auto) 2.6, Monocytes # (Auto) 1.2H, Eosinophils # (Auto) 0.4H, Basophils # (Auto) 0.1, Prothrombin Time 12.9, INR Comment 1.0, Activated Partial Thromboplast Time 25, D-Dimer 0.36, Sodium Level 135, Potassium Level 4.2, Chloride Level 102, Carbon Dioxide Level 23, Anion Gap 10, Blood Urea Nitrogen 11, Creatinine 1.17, Estimat Glomerular Filtration Rate > 60, BUN/Creatinine Ratio 9, Glucose Level 114H, Calcium Level 9.5, Magnesium Level 2.4, Total Bilirubin 1.3H, Aspartate Amino Transf (AST/SGOT) 22 , Alanine Aminotransferase (ALT/SGPT) 24, Alkaline Phosphatase 97, Myoglobin 67.4, Troponin I < 0.30, B-Type Natriuretic Peptide 14.3, Total Protein 7.5, Albumin 4.2, Amylase Level 49, Lipase 22 01/11/17 16:40: Lactic Acid Level 1.24 01/11/17 22:40: Myoglobin 65.9, Troponin I < 0.30 01/12/17 05:00: White Blood Count 8.5, Red Blood Count 4.96, Hemoglobin 15.2, Hematocrit 46, Mean Corpuscular Volume 92, Mean Corpuscular Hemoglobin 31, Mean Corpuscular Hemoglobin Concent 33, Red Cell Distribution Width 14.2, Platelet Count 334, Mean Platelet Volume 9.1, Neutrophils (%) (Auto) 57, Lymphocytes (%) (Auto) 25, Monocytes (%) (Auto) 12, Eosinophils (%) (Auto) 5, Basophils (%) (Auto) 1, Neutrophils # (Auto) 4.8, Lymphocytes # (Auto) 2.1, Monocytes # (Auto) 1.0, Eosinophils # (Auto) 0.5H, Basophils # (Auto) 0.1, Sodium Level 136, Potassium Level 4.3, Chloride Level 103, Carbon Dioxide Level 23, Anion Gap 10, Blood Urea Nitrogen 14, Creatinine 1.15, Estimat Glomerular Filtration Rate > 60, BUN/ Creatinine Ratio 12, Glucose Level 111H, Calcium Level 8.8, Total Bilirubin 0.6 , Aspartate Amino Transf (AST/SGOT) 18, Alanine Aminotransferase (ALT/SGPT) 20, Alkaline Phosphatase 97, Total Protein 6.2L, Albumin 3.6, Triglycerides Level 98 , Cholesterol Level 178, LDL Cholesterol Direct 138H, VLDL Cholesterol 20, HDL Cholesterol 35L Laboratory Tests 01/11/17 16:25 01/12/17 05:00 A/P-Cardiology Assessment/Admission Diagnosis Chest pain suggestive of recurrent angina Coronary artery disease. Cardiac cath of 04-01-16 the proximal and mid LAD artery had 80% stenosis, to which balloon angioplasty was carried out; that reduced the stenosis to less than 50%. The distal LAD has 70% stenosis where the vessel is tortuous and of a small caliber and this vessel was not intervened on. The left Cx artery has a patent stent in its mid portion known to be a Promus 3 x 8 mm stent placed in 2012. The second OM branch has 70 to 80 % ostial and proximal stenosis. The RCA is dominant and has a patent stent known to be Promus 3 x 20mm stent placed in June 2015. Distal to the stent, the RCA has 60-70% stenosis. LVEF 50-55%. Mild elevation of LVEDP. No significant MR. Echo on 06/15/15 showed: Technically somewhat difficult study, moderate impairment of global left ventricular systolic function with an ejection fraction approximately 40%, posterobasal hypokinesis, trivial, mitral and tricuspid regurgitation, no evidence of significant valvular stenosis Hyperlipidemia - statin, followed by his PCP Chewing tobacco use H/o noncompliance Essential hypertension, likely with a component of white coat hypertension H/O hairy cell leukemia H/O spleenectomy ARCADIO of 07-30-15 is normal bilat 24 Hour Holter study of 07-30-15 showed NSR with an average HR of 78 bpm. Infrequent PVC's and PAC's that appear asymptomatic. Brief (up to 6 beat) runs of PSVT or A-fib during sleep hours. No VT, significant bradycardia. No significant ECG changes during episodes of palpitations Refusal to take OAC Discussion and Recomendations * Given symptoms suggestive of unstable angina in the setting of known CAD and continuing risk factors, card cath appears appropriate * We discussed the rationale, procedure, risks, benefits, potential complications, and alternatives of card cath and possible ad hoc PCI with him in detail. He understands and provides informed consent * Continue current home regimen. We have again advised to quit tobacco use immediately and completely Clinical Quality Measures AMI/AHF: ASA po Prior to arrival: Yes DVT/VTE Risk/Contraindication: Risk Factor Score Per Nursin RFS Level Per Nursing on Admit: 3=High LETICIA PENA MD FACP FAC CCDS Jan 12, 2017 12:54
[2017-01-12 12:55] VITALS: BP 130/77
[2017-01-12 16:19] VITALS: BP 120/77
[2017-01-12] MEDS: NS IV 1000 ML 1,000 ML IV SCH (16:24)
[2017-01-12 20:00] VITALS: BP 113/67
[2017-01-12] MEDS: CLOPIDOGREL 75 MG (PLAVIX) TABLET PO SCH (20:07)
[2017-01-12] MEDS ORDERED: ATORVASTATIN 40 MG (LIPITOR) TABLET PO SCH (21:00)
[2017-01-12 23:50] VITALS: BP 120/77
[2017-01-13] VITALS (12 sets, daily range): BP systolic 114–166; BP diastolic 63–102
[2017-01-13] MEDS: ATORVASTATIN 40 MG (LIPITOR) TABLET PO SCH (08:01)
[2017-01-13] MEDS: ASPIRIN 81 MG CHEW (CHILDREN'S ASA) PO SCH (08:01)
[2017-01-13] MEDS: meTOprolol SUCCINATE 100 MG (TOPROL XL) TAB PO SCH (08:01)
[2017-01-13] MEDS: ISOSORBIDE MONONITRATE 30 MG (IMDUR) TAB PO SCH (08:01)
[2017-01-13] MEDS: amLODIPine 10 MG (NORVASC) TAB PO SCH (08:01)
[2017-01-13] MEDS: LOSARTAN 50 MG (COZAAR) TAB PO SCH (08:01)
[2017-01-13] MEDS ORDERED: NS IV 1000 ML 1,000 ML ONE (08:41)
[2017-01-13] MEDS ORDERED: HEParin (CATH LAB) 2,000 ML IV ONE (08:42)
--- NOTE | 2017-01-13 10:56 | History & Physicial (CHS) ---
HPI History of Present Illness: 61 yo M with h/o CAD that presented to ER with worsening chest pain and shortness of breath. States that he has chest pain daily but that this was different and worse. States that he was very sweaty upon arrival. Has h/o 2 stents already. + tobacco use. Date seen by provider: Jan 12, 2017 Time Seen by Provider: 09:15 Attending Physician Yissel Sherman MD PCP Shavon Reed DO Consult Date of Admission Jan 11, 2017 at 19:05 Home Medications Home Medications Reviewed patient Home Medication Reconciliation Form Allergies Coded Allergies: No Known Drug Allergies (Verified , 09/23/15) [id number] Hx Patient Social History Alcohol Use: Occasionally Uses Recreational Drug Use: No Smoking Status: Former Smoker Former smoker/When Quit: May 03, 2012 Type Used: Cigarettes, Smokeless Tobacco 2nd Hand Smoke Exposure: No Recent Foreign Travel: No Contact w/other who traveled: No Recent Hopitalizations: No Recent Infectious Disease Expo: No Physical Abuse Screen: No Sexual Abuse: No Immunizations Up To Date Tetanus Booster (TDap): Unknown Date of Pneumonia Vaccine: Jul 27, 2012 Date of Influenza Vaccine: Mar 29, 2016 Past Medical History HTN CAD s/p 2 stents HLD Tobacco Use Family Medical History Family History: Arthritis 19 FATHER 19 MOTHER Cardiovascular disease 19 FATHER Completed stroke 19 FATHER, Onset:Unknown (1981) Deadly fall G8 BROTHER (9 years) Hypercholesterolemia 19 FATHER Hypertension 19 FATHER Myocardial infarction 19 FATHER 19 MOTHER (C.O.D.) Review of Systems ([facility]) Constitutional: diaphoresis, No malaise, No weakness EENTM: no symptoms reported Respiratory: No cough, dyspnea on exertion, No hemoptysis, No wheezing Cardiovascular: chest pain, No edema, No palpitations Gastrointestinal: no symptoms reported, No abdominal pain, No constipation, No diarrhea, No nausea, No vomiting Genitourinary: no symptoms reported, No dysuria, No frequency, No hematuria Musculoskeletal: neck pain (Left that is resolved this AM) Skin: no symptoms reported Psychiatric/Neurological: No Symptoms Reported Reviewed Test Results Reviewed Test Results Lab Laboratory Tests Test 01/11/17 16:25 01/11/17 16:40 01/11/17 22:40 01/12/17 05:00 Range/Units White Blood Count 11.5 H 8.5 4.3-11.0 10^3/uL Red Blood Count 5.48 4.96 4.35-5.85 10^6/uL Hemoglobin 16.7 15.2 13.3-17.7 G/DL Hematocrit 49 46 40-54 % Mean Corpuscular Volume 90 92 80-99 FL Mean Corpuscular Hemoglobin 31 31 25-34 PG Mean Corpuscular Hemoglobin Concent 34 33 32-36 G/DL Red Cell Distribution Width 14.2 14.2 10.0-14.5 % Platelet Count 368 334 130-400 10^3/uL Mean Platelet Volume 9.0 9.1 7.4-10.4 FL Neutrophils (%) (Auto) 63 57 42-75 % Lymphocytes (%) (Auto) 23 25 12-44 % Monocytes (%) (Auto) 11 12 0-12 % Eosinophils (%) (Auto) 3 5 0-10 % Basophils (%) (Auto) 1 1 0-10 % Neutrophils # (Auto) 7.3 4.8 1.8-7.8 X 10^3 Lymphocytes # (Auto) 2.6 2.1 1.0-4.0 X 10^3 Monocytes # (Auto) 1.2 H 1.0 0.0-1.0 X 10^3 Eosinophils # (Auto) 0.4 H 0.5 H 0.0-0.3 10^3/uL Basophils # (Auto) 0.1 0.1 0.0-0.1 10^3/uL Prothrombin Time 12.9 12.2-14.7 SEC INR Comment 1.0 0.8-1.4 Activated Partial Thromboplast Time 25 24-35 SEC D-Dimer 0.36 0.00-0.49 UG/ML Sodium Level 135 136 135-145 MMOL/L Potassium Level 4.2 4.3 3.6-5.0 MMOL/L Chloride Level 102 103 98-107 MMOL/L Carbon Dioxide Level 23 23 21-32 MMOL/L Anion Gap 10 10 5-14 MMOL/L Blood Urea Nitrogen 11 14 7-18 MG/DL Creatinine 1.17 1.15 0.60-1.30 MG/DL Estimat Glomerular Filtration Rate > 60 > 60 BUN/Creatinine Ratio 9 12 Glucose Level 114 H 111 H 70-105 MG/DL Calcium Level 9.5 8.8 8.5-10.1 MG/DL Magnesium Level 2.4 1.8-2.4 MG/DL Total Bilirubin 1.3 H 0.6 0.1-1.0 MG/DL Aspartate Amino Transf (AST/SGOT) 22 18 5-34 U/L Alanine Aminotransferase (ALT/SGPT) 24 20 0-55 U/L Alkaline Phosphatase 97 97 40-136 U/L Myoglobin 67.4 65.9 10.0-92.0 NG/ML Troponin I < 0.30 < 0.30 <0.30 NG/ML B-Type Natriuretic Peptide 14.3 <100.0 PG/ML Total Protein 7.5 6.2 L 6.4-8.2 GM/DL Albumin 4.2 3.6 3.2-4.5 GM/DL Amylase Level 49 25-125 U/L Lipase 22 8-78 U/L Lactic Acid Level 1.24 0.50-2.00 MMOL/L Triglycerides Level 98 <150 MG/DL Cholesterol Level 178 < 200 MG/DL LDL Cholesterol Direct 138 H 1-129 MG/DL VLDL Cholesterol 20 5-40 MG/DL HDL Cholesterol 35 L 40-60 MG/DL Physical Exam-([facility]) Physical Exam Vital Signs VS - Last 72 Hours, by Label 01/11/17 01/11/17 01/11/17 01/11/17 16:15 16:15 16:40 18:58 Temp 99.2 99.2 Pulse 109 81 Resp 14 18 B/P (MAP) 142/101 Pulse Ox 96 96 99 O2 Delivery Nasal Cannula Room Air Nasal Cannula Nasal Cannula O2 Flow Rate 2.0 2.0 2.00 2.00 01/11/17 01/11/17 01/11/17 01/11/17 19:15 20:00 20:00 20:05 Temp 98.4 Pulse 90 90 Resp 20 B/P (MAP) 167/92 167/108 Pulse Ox 95 O2 Delivery Room Air Room Air 01/11/17 01/11/17 01/11/17 01/11/17 20:15 20:30 20:45 21:00 B/P (MAP) 161/93 136/73 129/73 121/71 01/11/17 01/11/17 01/11/17 01/11/17 21:15 21:30 22:00 22:30 B/P (MAP) 133/75 121/68 126/75 120/62 01/11/17 01/11/17 01/12/17 01/12/17 23:30 23:40 01:00 04:00 Temp 97.3 98.0 Pulse 64 73 80 Resp 16 19 B/P (MAP) 135/78 156/79 Pulse Ox 95 96 O2 Delivery Room Air Room Air Room Air 01/12/17 01/12/17 01/12/17 01/12/17 04:00 07:00 07:30 07:30 Pulse 85 Pulse Ox 98 98 O2 Delivery Room Air Room Air Room Air 01/12/17 01/12/17 01/12/17 01/12/17 07:31 12:55 12:55 13:00 Temp 97.1 98.1 Pulse 84 76 73 Resp 20 20 B/P (MAP) 177/114 130/77 Pulse Ox 98 97 97 O2 Delivery Room Air Room Air Room Air 01/12/17 01/12/17 01/12/17 01/12/17 16:19 16:29 19:00 20:00 Temp 98.4 98.1 Pulse 75 75 67 Resp 16 18 B/P (MAP) 120/77 113/67 Pulse Ox 96 95 O2 Delivery Room Air Room Air Room Air 01/12/17 01/12/17 01/12/17 01/13/17 20:10 21:00 23:50 00:00 Temp 98.2 Pulse 71 Resp 20 B/P (MAP) 120/77 Pulse Ox 95 97 O2 Delivery Room Air Room Air Room Air Room Air 01/13/17 01/13/17 01/13/17 01/13/17 01:00 04:00 04:00 07:00 Temp 97.7 Pulse 78 65 73 Resp 18 B/P (MAP) 142/91 Pulse Ox 98 O2 Delivery Room Air Room Air 01/13/17 01/13/17 01/13/17 07:59 08:00 08:00 Temp 97.1 Pulse 74 Resp 20 B/P (MAP) 166/102 Pulse Ox 97 O2 Delivery Room Air Room Air Room Air Capillary Refill : Less Than 3 Seconds General Appearance: WD/WN, no apparent distress HEENT: PERRL/EOMI, normal ENT inspection, TMs normal, pharynx normal Neck: non-tender, full range of motion, supple, normal inspection Respiratory: chest non-tender, lungs clear, normal breath sounds, no respiratory distress, no accessory muscle use Cardiovascular: normal peripheral pulses, regular rate, rhythm, other (Trace LE edema bilaterally) Gastrointestinal: normal bowel sounds, non tender, soft, no organomegaly, no pulsatile mass Back: normal inspection, no CVA tenderness, no vertebral tenderness Extremities: normal range of motion, non-tender, normal inspection, no calf tenderness, normal capillary refill 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, no motor/sensory deficits, alert, normal mood/affect, oriented x 3 Skin: normal color, warm/dry Lymphatic: no adenopathy Assessment/Plan Assessment/Plan Plan 61 yo M with h/o CAD with new complaints of chest pain Plan Typical Chest Pain - ASA, Nitro and Morphine PRN - CE neg x 2 - 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
[2017-01-13] MEDS ORDERED: MIDAZOLAM 5 MG/5 ML (VERSED) VIAL ONE (11:53)
[2017-01-13] MEDS ORDERED: diphenhydrAMINE 50 MG/ML INJ (BENADRYL) ONE (11:53)
[2017-01-13] MEDS ORDERED: fentaNYL INJECTION 100 MCG/2 ML AMP ONE (11:53)
--- NOTE | 2017-01-13 12:05 | Cardiac Procedure Note-CS/ASA ---
Pre-Procedure Note Pre-Op Procedure Note H&P Reviewed The H&P was reviewed, patient examined and no changes noted. Date H&P Reviewed: Jan 13, 2017 Time H&P Reviewed: 12:05 Conscious Sedation Pre-Proced Time Reviewed: 12:05 ASA Class: 3 Airway Mallampati Classification: ([place] appropriate class) I. II. III, IV Lungs Heart ASA score ASA 1: a normal healthy patient ASA 2: a patient with a mild systemic disease (mid diabetes, controlled hypertension, obesity ASA 3: a patient with a severe systemic disease that limits activity (angina , COPD, prior Myocardial infarction) ASA 4: a patient with an incapacitating disease that is a constant threat to life (CHF, renal failure) ASA 5: a moribund patient not expected to survive 24 hrs. (ruptured aneurysm) ASA 6: a declared brain patient whose organs are being harvested. For emergent operations, add the letter E after the classification Grade 2 Sedation Plan: Analgesia, Amnesia, Plan communicated to team members, Discussed options with patient/fam, Discussed risks with patient/fam Note The patient is an appropriate candidate to undergo the planned procedure, sedation, and anesthesia. The patient immediately re-assessed prior to indication. LETICIA PENA MD FACP FAC CCDS Jan 13, 2017 12:05
[2017-01-13] MEDS: NS IV 1000 ML 1,000 ML IV SCH (12:19)
[2017-01-13] MEDS ORDERED: NITROGLYCERIN DRIP 25 MG/D5W 250 ML IV ONE (12:44)
[2017-01-13] MEDS ORDERED: EPTIFIBATIDE BOLUS 20 ML IV ONE (12:44)
[2017-01-13] MEDS ORDERED: HEParin 1000 UNIT/ML (10ML VIAL) FOR BOLUS ONE (12:44)
[2017-01-13] MEDS ORDERED: NS IV 1000 ML 1,000 ML IV SCH (13:26)
[2017-01-13] MEDS ORDERED: PATIENT MAY USE OWN MEDS, ALL PO SCH (13:30)
--- NOTE | 2017-01-13 13:35 | Progress Note-Cardiology ---
Cardiology SOAP Progress Note Subjective: Has continued to have mild intermittent chest discomfort No shortness of breath or palp or syncope or ankle swelling Objective: I&O/Vital Signs Vital Sign - Last 12Hours 01/13/17 01/13/17 01/13/17 01/13/17 04:00 04:00 07:00 07:59 Temp 97.7 97.1 Pulse 65 73 74 Resp 18 20 B/P (MAP) 142/91 166/102 Pulse Ox 98 97 O2 Delivery Room Air Room Air Room Air 01/13/17 01/13/17 01/13/17 01/13/17 08:00 08:00 12:09 12:10 Temp 97.6 Pulse 71 Resp 20 B/P (MAP) 155/90 Pulse Ox 98 O2 Delivery Room Air Room Air Room Air Room Air Intake and Output 01/13/17 00:00 Intake Total 2360 ml Output Total 425 ml Balance 1935 ml Weight (Pounds): 254 Weight (Ounces): 8.0 Weight (Calculated Kilograms): [id number] Constitutional: AAO x 3, well-developed, well-nourished Respiratory: No accessory muscle use, lungs clear to percussion, lungs clear to auscultation Cardiovascular: regular rate-rhythm, S1 and S2, systolic murmur (faint CINDI at cardiac base) Gastrointestional: No tender, No guarding, No rebound, audible bowel sounds Extremities: pedal edema (mild to mod, bilateral), No clubbing, No cyanosis Neurologic/Psychiatric: grossly intact, power is 5/5 both on sides Skin: No rash on exposed areas, No ulcerations on exposed areas Results/Procedures: Labs Microbiology 01/11/17 Blood Culture - Preliminary, Resulted No growth Laboratory Tests 01/11/17 16:25 01/12/17 05:00 A/P: Assessment: Recurrent angina Coronary artery disease. Card cath of 01-13-17 shows multivessel CAD: 50% LMCA, 80% mid LAD, 90% ostial and prox OM1, 99% mid RCA distal to a patent stent, L to R collaterals, LVEF 45-50% Echo of 06/15/14: Technically somewhat difficult study, moderate impairment of global left ventricular systolic function with an ejection fraction approximately 40%, posterobasal hypokinesis, trivial, mitral and tricuspid regurgitation, no evidence of significant valvular stenosis Hyperlipidemia - statin, followed by his PCP Chewing tobacco use H/o noncompliance Essential hypertension, likely with a component of white coat hypertension H/O hairy cell leukemia H/O spleenectomy ARCADIO of 07-30-15 is normal bilat 24 Hour Holter study of 07-30-15 showed NSR with an average HR of 78 bpm. Infrequent PVC's and PAC's that appear asymptomatic. Brief (up to 6 beat) runs of PSVT or A-fib during sleep hours. No VT, significant bradycardia. No significant ECG changes during episodes of palpitations Refusal to take oral anticoagulation for PAF Plan: * Complex management issue * He has worsening CAD that is multivessel. The culprit lesion for this admission is probably the RCA, but intervention attempt to that was unsuccessful. Given multivessel CAD in the setting of mild impairment of LV function, coronary bypass surgery appears to be the best option. He has been reluctant to have surgery done, but after a discussion today, he agrees * I called Dr Hardin of CV surgery at [facility] in [place], [place], and discussed the case with him. He has kindly accepted the patient in transfer for consideration of CABG Clinical Quality Measures AMI/AHF: ASA po Prior to arrival: Yes LETICIA PENA MD FACP FAC CCDS Jan 13, 2017 13:35
--- NOTE | 2017-01-13 13:41 | Cardiology Discharge Summary ---
Diagnosis/Chief Complaint Date of Admission Jan 11, 2017 at 19:05 Date of Discharge 01/13/17 Final/Discharge Diagnosis Recurrent angina Coronary artery disease. Card cath of 01-13-17 shows multivessel CAD: 50% LMCA, 80% mid LAD, 90% ostial and prox OM1, 99% mid RCA distal to a patent stent, L to R collaterals, LVEF 45-50% Echo of 06/15/14: Technically somewhat difficult study, moderate impairment of global left ventricular systolic function with an ejection fraction approximately 40%, posterobasal hypokinesis, trivial, mitral and tricuspid regurgitation, no evidence of significant valvular stenosis Hyperlipidemia - statin, followed by his PCP Chewing tobacco use H/o noncompliance Essential hypertension, likely with a component of white coat hypertension H/O hairy cell leukemia H/O spleenectomy ARCADIO of 07-30-15 is normal bilat 24 Hour Holter study of 07-30-15 showed NSR with an average HR of 78 bpm. Infrequent PVC's and PAC's that appear asymptomatic. Brief (up to 6 beat) runs of PSVT or A-fib during sleep hours. No VT, significant bradycardia. No significant ECG changes during episodes of palpitations Refusal to take oral anticoagulation for PAF Chief Complaint/HPI Chief Complaint/HPI 61 yo man with upper mid sternal chest discomfort radiating down the L arm, occurring during exertion, improved with NTG and morphine in the ER, lasting more than an hour, associated with some dizziness and diaphoresis, without subsequent recurrence Has chronic mod exertional shortness of breath Denies palp or syncope Has chronic mild to mod intermittent bilat leg swelling Hosp course: Cath of 01/13/17 shows multivessel CAD Complex management issue.He has worsening CAD that is multivessel. The culprit lesion for this admission is probably the RCA, but intervention attempt to that was unsuccessful. Given multivessel CAD in the setting of mild impairment of LV function, coronary bypass surgery appears to be the best option. He has been reluctant to have surgery done, but after a discussion today, he agrees. I called Dr Hardin of CV surgery at [facility] in [place], [place], and discussed the case with him. He has kindly accepted the patient in transfer for consideration of CABG Discharge Summary Procedures Card cath on 01/13/17 Discussion & Recommendations Home Medications Reviewed patient Home Medication Reconciliation Form Discharge Home Medications: Reviewed and agree with Discharge Medication list on patient's Discharge Instruction sheet Clinical Quality Measures AMI/AHF: ASA po Prior to arrival: Yes DVT/VTE Risk/Contraindication: Risk Factor Score Per Nursin RFS Level Per Nursing on Admit: 3=High LETICIA PENA MD FACP FACC CCDS Jan 13, 2017 13:41
--- NOTE | 2017-01-13 16:28 | CARDIAC CATHETERIZATION ---
DATE OF SERVICE: 01/13/2017 The patient is a 61-year-old man with known coronary artery disease who was admitted with symptoms consistent with unstable angina. Cardiac catheterization was carried out after having obtained an informed consent for cardiac catheterization and possible ad hoc coronary intervention. PROCEDURE: He was brought to the cardiac catheterization laboratory in a fasting state. Right groin was prepared and draped in the usual sterile fashion. Lidocaine 1% local anesthesia. Modified Seldinger technique was used to advance a 5-Georgian sheath in the right femoral artery. We used a 5-Georgian JL4 catheter for left coronary angiography and 5-Georgian JR4 catheter for right coronary angiography. We used 5-Georgian pigtail catheter for left heart catheterization and left ventricular angiography. Subsequently we attempted percutaneous intervention to the right coronary artery which appeared to be the culprit lesion and causing the patient's angina. PERCUTANEOUS INTERVENTION TO THE RIGHT CORONARY ARTERY: Following completion of the diagnostic procedure, we exchanged the sheath over a wire for a 6 Georgian sheath. We gave 5000 units of intravenous heparin. Double bolus of Integrilin was given. We used the 6-Georgian JR4 guide catheter with side holes to engage the right coronary artery. We used a BMW wire to cross the mid right coronary artery lesion. We encountered considerable difficulty. We were able to advance the wire across the lesion, but it was not clear and it was in a tiny subbranch or in a dissection plane. Therefore, we decided not to carry out any ballooning or stenting because the patient has this and other coronary lesions (including left anterior descending and left circumflex). Our plan was to attempt percutaneous intervention of the right coronary artery because this appeared to be the culprit lesion and then refer for consideration of bypass surgery for the left coronary system. However, given difficulty with percutaneous intervention to the right coronary artery, we decided to refer bypass surgery for this lesion, as well, to be undertaken at the same time as intervention to the left coronary system. We spoke with Dr. Hardin of cardiovascular surgery at [facility] who has kindly accepted the patient in transfer. HEMODYNAMICS: Left ventricular end-diastolic pressure following coronary angiography was 8 mmHg. There was no significant pressure gradient on pullback across the aortic valve. Ascending aortic pressure was 86/56 with a mean of 71 mmHg. LEFT VENTRICULAR ANGIOGRAPHY: Left ventricular angiography was carried out in the right anterior oblique projection. Global left ventricular systolic function is mildly impaired. Left ventricular ejection fraction appears to 45% to 50%. There does not appear to be distinct regional wall motion abnormality. There does not appear to be significant mitral regurgitation. CORONARY ANGIOGRAPHY: Left main coronary artery has 40-50% mid vessel stenosis. Left anterior descending artery has diffuse disease including 80% mid vessel stenosis. The left circumflex artery has diffuse mild to moderate disease. First obtuse marginal branch of the left circumflex artery has 90% ostial and proximal stenosis. Right coronary artery is dominant and has a patent stent in its proximal portion, but there is 99% stenosis in the mid right coronary artery, just distal to the stented area of the right coronary artery. To this 99% stenosis, percutaneous intervention was unsuccessful. CONCLUSIONS: 1. Multivessel coronary artery disease including 40-50% left main coronary artery, 80% mid left anterior descending artery, 90% ostial and proximal first obtuse marginal branch of the left circumflex, 99% mid right coronary artery stenosis. Attempt at percutaneous intervention to the right coronary artery was unsuccessful. 2. Mild impairment of left ventricular systolic function with ejection fraction of 45-50%. 3. Normal left ventricular end-diastolic pressure. 4. No significant mitral regurgitation. DISCUSSION: Based on the results and discussion above, we are deferring for consideration of coronary artery bypass surgery. I have spoken with Dr. Hardin of cardiovascular surgical services at [facility] and he has accepted the patient in transfer. Arrangements are being made at the time of this dictation. Job ID: [id number] DocumentID: [id number] Dictated Date: 01/13/2017 13:56:43 Associate Account Manager Date: 01/13/2017 16:27:56 Dictated By: LETICIA PENA MD, MA, FACP, FACC, MTDD
--- OUTSIDE RECORDS SUMMARY | 2017-01-15 10:59 | XMS REPORT | Clinical Summary ---
Author Author [facility] Organization [facility] Address Unknown Phone Unavailable Care Team Providers Care Boiler Reliner Name Role Phone PCP Unavailable Source Comments Some departments are not documenting in the electronic medical record. If you do not see the information that you expected, contact Release of Information in the Health Information Management department at [phone] for further assistance in locating additional records.[facility] Allergies Not on File Current Medications Not [...]
== END 2017-01-13 18:34 | disposition short-term general hospital (02) ==
LOC: EDUNIT# 16:14 → ER 16:15 → ICU 18:06 → UNDOADMOB 18:06 → ICU 19:05 → UNDOADMOB 19:05 → CATH 19:05 → ICU 01-12 14:38 → UNDODISOB 01-13 18:34 → CATH 01-13 18:34
PROVIDERS: ATTEND Pediatrics
DX: I25.110 Atherosclerotic heart disease of native coronary artery with unstable angina pectoris (principal); E78.5 Hyperlipidemia, unspecified; I10 Essential (primary) hypertension; I48.91 Unspecified atrial fibrillation; C91.41 Hairy cell leukemia, in remission; F17.220 Nicotine dependence, chewing tobacco, uncomplicated; Z95.5 Presence of coronary angioplasty implant and graft; Z79.899 Other long term (current) drug therapy; Z91.19 Patient's noncompliance with other medical treatment and regimen; Z90.81 Acquired absence of spleen
CPT/HCPCS: 36415; 71010; 80053; 80061; 82150; 83036; 83605; 83690; 83735; 83874; 83880; 84484; 85025; 85379; 85610; 85730; 87040; 93005; 93041; 93458

== ENCOUNTER 2017-01-30 10:20 | Outpatient (RCR) | payer MEDICARE ==
[~2017-01-30 10:20] MED LIST changes: +METO-272 PO; +METO-274 PO; -METO-370 PO; -METO-395 PO
[2017-01-30 10:36] LABS: BASOPHILS # (AUTO) 0.1 10^3/uL (0.0-0.1); BASOPHILS % (AUTO) 1 % (0-10); EOSINOPHILS # (AUTO) 0.6 10^3/uL (0.0-0.3); EOSINOPHILS % (AUTO) 6 % (0-10); LYMPHOCYTES # (AUTO) 1.9 X 10^3 (1.0-4.0); LYMPHOCYTES % (AUTO) 17 % (12-44); MEAN CORPUSCULAR HEMOGLOBIN 30 PG (25-34); MEAN CORPUSCULAR HGB CONC 33 G/DL (32-36); MEAN CORPUSCULAR VOLUME 91 FL (80-99); MEAN PLATELET VOLUME 8.8 FL (7.4-10.4); MONOCYTES # (AUTO) 0.9 X 10^3 (0.0-1.0); MONOCYTES % (AUTO) 9 % (0-12); NEUTROPHILS # (AUTO) 7.2 X 10^3 (1.8-7.8); NEUTROPHILS % (AUTO) 68 % (42-75); PLATELET COUNT 762 10^3/uL (130-400); RED BLOOD COUNT 3.82 10^6/uL (4.35-5.85); RED CELL DISTRIBUTION WIDTH 13.4 % (10.0-14.5); WHITE BLOOD COUNT 10.7 10^3/uL (4.3-11.0)
[2017-01-30] MEDS ORDERED: ACET1TAB43 (10:59)
[2017-01-30 11:13] LABS: ALBUMIN 3.6 GM/DL (3.2-4.5); ANION GAP 10 MMOL/L (5-14); BLOOD UREA NITROGEN 10 MG/DL (7-18); BUN/CREATININE RATIO 10; CALCIUM 8.9 MG/DL (8.5-10.1); CARBON DIOXIDE 22 MMOL/L (21-32); CHLORIDE 103 MMOL/L (98-107); CREATININE SERUM 1.05 MG/DL (0.60-1.30); GFR ESTIMATED > 60; GLUCOSE 120 MG/DL (70-105); PHOSPHORUS 2.5 MG/DL (2.3-4.7); POTASSIUM 4.3 MMOL/L (3.6-5.0); SODIUM 135 MMOL/L (135-145)
== END 2017-02-28 | disposition home or self-care (01) ==
LOC: LAB 10:20
PROVIDERS: ATTEND Nurse Practitioner
DX: Z48.812 Encounter for surgical aftercare following surgery on the circulatory system (principal); Z95.1 Presence of aortocoronary bypass graft
CPT/HCPCS: 36415; 80069; 85025

== ENCOUNTER 2017-01-30 10:39 | Emergency (ER) | payer MEDICARE, OTHER ==
[~2017-01-30] VITALS: Ht 175.3 cm; Wt 115.4 kg
[~2017-01-30 10:39] MED LIST changes: -METO-272 PO; -METO-274 PO; +METO-370 PO; +METO-395 PO
--- OUTSIDE RECORDS SUMMARY | 2017-01-30 10:47 | XMS REPORT | Clinical Summary ---
Author Author [facility] Organization [facility] Address Unknown Phone Unavailable Care Team Providers Care Insurance Specialist Name Role Phone PCP Unavailable Source Comments Some departments are not documenting in the electronic medical record. If you do not see the information that you expected, contact Release of Information in the Health Information Management department at [phone] for further assistance in locating additional records.[facility] Allergies Not on File Current Medications [...]
--- OUTSIDE RECORDS SUMMARY | 2017-01-30 10:49 | XMS REPORT ---
Author Author TAMARA HAN Organization [facility] [place] Address [address] [place] [address] Care Team Providers Care Deliverer Merchandise Name Role Phone TAMARA HAN Unavailable PROBLEMS Type Condition ICD9-CM Code [id number] Code Onset Dates Condition Status SNOMED Code Problem Essential hypertension I10 Active 72899254 Problem History of leukemia Z85.6 Active 976738807 Problem COPD (chronic obstructive pulmonary disease) J44.9 Active 41967021 Problem GERD (gastroesophageal reflux disease) K21.9 Active 316922524 Problem Hyperlipidemia E78.5 Active 81394377 Problem Atherosclerotic heart disease of [place] coronary artery without angina pectoris I25.10 Active 706595576 Problem Allergic rhinitis J30.9 Active 14510851 Problem CAD (coronary artery disease) I25.10 Active 80871983 ALLERGIES Unknown Allergies SOCIAL HISTORY No smoking Hx information available PLAN OF CARE VITAL SIGNS MEDICATIONS Medication Instructions Dosage Frequency Start Date End Date Duration Status Plavix 75 MG Orally Once a day 1 tablet 24h Active Amlodipine Besylate 10 MG Orally Once a day 1 tablet 24h Active Metoprolol Succinate ER 100 MG Orally Once a day 1 tablet 24h Jun, Active Meclizine HCl 12.5 MG Orally 3 times a day 1 tablet as needed 8h Active Aspirin Adult Low Dose 81 MG Orally Once a day 1 tablet 24h Active Nitroglycerin 0.4 MG Sublingual 1 tab q 10 min x3 doses for chest pain as directed Mar, Active Atorvastatin Calcium 40 MG Orally Once a day 1 tablet 24h 30 Active Isosorbide Mononitrate CR 30 MG Orally Once a day 1 tablet 24h Active Losartan Potassium 100 MG Orally Once a day 1 tablet 24h Active RESULTS No Results PROCEDURES No Known procedures IMMUNIZATIONS No Known Immunizations
[2017-01-30] MEDS ORDERED: ACET1TAB43 (10:59)
--- NOTE | 2017-01-30 11:44 | ED Lower Extremity ---
General Chief Complaint: Lower Extremity Stated Complaint: RED STREAK ON LEFT LEG AND PAIN Nursing Triage Note: C/O red streaking up left calf from mid calf to above knee at graph site from [facility].home health told him it could be a blood clot. Dr Sandoval office told him they would see at end of month. Nursing Sepsis Screen: No Definite Risk Source: patient Exam Limitations: no limitations History of Present Illness Time seen by provider: 11:30 Initial Comments The patient is a 61-year-old white male known to me for many years. He had a three-vessel coronary artery bypass grafting on 01/17. He now reports pain and a red streak on his left leg. This is the graft harvest leg. He also reports a needles and pins sensation at the medial knee. There has been no drainage. Onset: yesterday Method of Injury: other (graft harvest) Allergies and Home Medications Allergies Coded Allergies: No Known Drug Allergies (Verified , 01/30/17) Home Medications Acetaminophen with Codeine 1 Each Tablet, (Reported) Aspirin 81 Mg Tab.chew, 81 MG PO DAILY, (Reported) Clopidogrel Bisulfate 75 Mg Tablet, 75 MG PO HS, (Reported) LAST FILLED 09/19/16 #90 Losartan Potassium 100 Mg Tablet, 100 MG PO DAILY, (Reported) LAST FILLED 09/19/16 #30 Metoprolol Succinate 100 Mg Tab.er.24h, 100 MG PO BID, (Reported) Nitroglycerin 0.4 Mg Tab.subl, 0.4 MG SL UD PRN for CHEST PAIN, (Reported) Constitutional: see HPI EENTM: no symptoms reported Respiratory: no symptoms reported Cardiovascular: no symptoms reported, other (postop pain) Gastrointestinal: no symptoms reported Genitourinary: no symptoms reported Musculoskeletal: other Psychiatric/Neurological: No Symptoms Reported Past Ixbusgx-Exspkh-Pfdpjh Hx Patient Social History Alcohol Use: Past History Number of Drinks Today: AA Alcohol Beverage of Choice: Beer Recreational Drug Use: No Smoking Status: Former Smoker Type Used: Cigarettes, Smokeless Tobacco Former Smoker, Quit: Mar 23, 2013 2nd Hand Smoke Exposure: No Recent Foreign Travel: No Contact w/Someone Who Travel: No Recent Infectious Disease Expo: No Recent Hopitalizations: Yes (CABG 01/16/17) Physical Abuse: No Sexual Abuse: No Mistreated: No Fear: No Immunizations Up To Date Tetanus Booster (TDap): Unknown PED Vaccines UTD: No Date of Pneumonia Vaccine: Jul 27, 2012 Date of Influenza Vaccine: Mar 29, 2016 Seasonal Allergies Seasonal Allergies: No Surgeries History of Surgeries: Yes (SPLENECTOMY) Surgeries: Abdominal, Adenoidectomy, Cardiac, CABG, Coronary Stent, Tonsillectomy Respiratory History of Respiratory Disorde: Yes Respiratory Disorders: COPD Currently Using CPAP: No Currently Using BIPAP: No Cardiovascular History of Cardiac Disorders: Yes (stents/ballooned) Cardiac Disorders: Coronary Artery Disease, Heart Attack, High Cholesterol, Hypertension Neurological History of Neurological Disord: No Reproductive System Hx Reproductive Disorders: No Sexually Transmitted Disease: No HIV/AIDS: No Genitourinary History of Genitourinary Disor: No Gastrointestinal History of Gastrointestinal Di: No Musculoskeletal History of Musculoskeletal Dis: No Endocrine History of Endocrine Disorders: No HEENT History of HEENT Disorders: No Loss of Vision: Denies Hearing Impairment: Hard of Hearing Cancer History of Cancer: Yes ("hairy cell" leukemia) Cancer: Leukemia Psychosocial History of Psychiatric Problem: Yes Behavioral Health Disorders: Anxiety Suicide Risk Score: 0 Integumentary History of Skin or Integumenta: No Blood Transfusions History of Blood Disorders: Yes (HX OF LEUKEMIA) Adverse Reaction to a Blood Tr: No Family Medical History Family Medial History: Arthritis 19 FATHER 19 MOTHER Cardiovascular disease 19 FATHER Completed stroke 19 FATHER, Onset:Unknown (1981) Deadly fall G8 BROTHER (9 years) Hypercholesterolemia 19 FATHER Hypertension 19 FATHER Myocardial infarction 19 FATHER 19 MOTHER (C.O.D.) Physical Exam Vital Signs Vital Sign - Last 12Hours 01/30/17 10:51 Pulse 78 Resp 18 B/P (MAP) 125/80 Pulse Ox 99 Capillary Refill : Less Than 3 Seconds General Appearance: mild distress HEENT: normal ENT inspection Neck: full range of motion Cardiovascular: normal peripheral pulses, regular rate, rhythm, no edema, no gallop, no JVD, no murmur Respiratory: chest non-tender, lungs clear, normal breath sounds, no respiratory distress, no accessory muscle use Gastrointestinal: normal bowel sounds, non tender, soft, no organomegaly, no pulsatile mass Back: normal inspection, no CVA tenderness, no vertebral tenderness Comments The incision at the upper pole of the graft harvest on the left medial leg shows an area of erythema without fluctuance. The erythema has circum incisional and without streaking. The distal vertically oriented incision is linear and without erythema. Progress/Results/Core Measures Results/Orders My Orders Orders - KAREN CHAVEZ MD Venous Lower Ext Lt (01/30/17 11:33) Vital Signs/I&O Vital Sign - Last 12Hours 01/30/17 10:51 Pulse 78 Resp 18 B/P (MAP) 125/80 Pulse Ox 99 Blood Pressure Mean: 95 Departure Communication (Admissions) Progress Notes Sonogram shows no evidence of DVT or abscess Impression Impression: Primary Impression: satisfactory wound healing Disposition: HOME, SELF-CARE Condition: Stable/Unchanged Departure-Patient Inst. Decision time for Depature: 13:12 Referrals: KEDAR FREIRE (PCP) Primary Care Physician Add. Discharge Instructions: All discharge instructions reviewed with patient and/or family. Voiced understanding. Continued to observe the wound healing. Red streaking up the inside of your thigh would be of concern for an infection. Keep follow-up appointment with KAREN Dale MD Jan 30, 2017 11:44
--- NOTE | 2017-01-30 12:42 | Diagnostic Imaging Report ---
PROCEDURE: US left lower extremity venous. TECHNIQUE: Multiple real-time grayscale images were obtained over the left lower extremity in various projections. Additional duplex Doppler and color Doppler images were also obtained. INDICATION: Amanda-incisional pain from greater saphenous venous harvest. FINDINGS: Medially in the left leg at the level of the knee deep to the incision is a fluid collection measuring 3.1 x 1.1 x 1.2 cm. Its contents appeared predominantly anechoic and there is no identifiable internal or abnormal peripheral hypervascularity. It showed no obvious complexity and by imaging would be compatible with a small hematoma/seroma. Sterility, however, cannot be confirmed by imaging. The femoropopliteal deep venous system is widely patent. There is no deep or superficial thrombus. IMPRESSION: Negative for DVT. Small fluid collection deep to the incision showed no appreciable CT complexity or internal echogenicity nor evidence of internal or peripheral vascularity favoring process such as evolving hematoma/seroma. Dictated by: Dictated on workstation # [id number]
[2017-01-30 13:24] VITALS: BP 120/50
== END 2017-01-30 13:24 | disposition home or self-care (01) ==
LOC: EDUNIT# 10:39 → ER 10:43
DX: T81.89XA Other complications of procedures, not elsewhere classified, initial encounter (principal); I25.10 Atherosclerotic heart disease of native coronary artery without angina pectoris; I25.2 Old myocardial infarction; E78.00 Pure hypercholesterolemia, unspecified; I10 Essential (primary) hypertension; F41.9 Anxiety disorder, unspecified; J44.9 Chronic obstructive pulmonary disease, unspecified; Z82.49 Family history of ischemic heart disease and other diseases of the circulatory system; Z85.6 Personal history of leukemia; Z95.1 Presence of aortocoronary bypass graft; Z79.82 Long term (current) use of aspirin; Z87.891 Personal history of nicotine dependence; Z90.81 Acquired absence of spleen; Z95.5 Presence of coronary angioplasty implant and graft
CPT/HCPCS: 99283

== ENCOUNTER → 2017-02-18 | Outpatient (CLI) | payer MEDICARE, OTHER ==
[~2017-02-18] MED LIST changes: +ACET1TAB43
--- NOTE | 2017-02-18 13:31 | Diagnostic Imaging Report ---
PA and lateral views of the chest. INDICATION: Post CABG. COMPARISON: 01/11/2017. FINDINGS: There is minimal atelectasis in the left lower lobe. The right lung is clear. The heart size is mildly enlarged. No effusion or pneumothorax. The mediastinum and jany appear unremarkable. Sternotomy wires are seen. IMPRESSION: Minimal left basilar atelectasis. Cardiomegaly. Dictated by: Dictated on workstation # [id number]
== END ==
LOC: CARD 09:15
PROVIDERS: ATTEND Nurse Practitioner
DX: Z09 Encounter for follow-up examination after completed treatment for conditions other than malignant neoplasm; Z95.1 Presence of aortocoronary bypass graft
CPT/HCPCS: 71020; 93005

== ENCOUNTER → 2017-03-12 | Outpatient (CLI) | payer MEDICARE ==
[~2017-03-12] MED LIST changes: +METO-272 PO; +METO-274 PO; -METO-370 PO; -METO-395 PO
== END ==
LOC: CARD 11:38
PROVIDERS: ATTEND Internal Medicine Cardiovascular Disease
DX: I25.10 Atherosclerotic heart disease of native coronary artery without angina pectoris (principal); C91.40 Hairy cell leukemia not having achieved remission; I10 Essential (primary) hypertension; E66.09 Other obesity due to excess calories; E78.2 Mixed hyperlipidemia
CPT/HCPCS: 93306

== ENCOUNTER 2017-03-16 08:30 | Outpatient (RCR) | payer MEDICARE, OTHER ==
[~2017-03-16 08:30] MED LIST changes: -METO-272 PO; -METO-274 PO; +METO-370 PO; +METO-395 PO
== END 2017-06-04 | disposition home or self-care (01) ==
LOC: CR 08:30
PROVIDERS: ATTEND Internal Medicine Cardiovascular Disease
DX: I20.8 Other forms of angina pectoris (principal); Z95.1 Presence of aortocoronary bypass graft
CPT/HCPCS: 93798

== ENCOUNTER 2017-11-18 12:16 | Outpatient (CLI) | payer MEDICARE ==
[~2017-11-18] VITALS: Ht 175.3 cm; Wt 117.6 kg
[2017-11-18] MEDS ORDERED: METO-333 PO (12:29)
[2017-11-18] MEDS ORDERED: AMLO10TA2 PO (12:29)
[2017-11-18] MEDS ORDERED: ATOR40TA70 PO (12:29)
[2017-11-18] MEDS ORDERED: CLOP75TA28 PO (12:29)
[2017-11-18 12:34] VITALS: BP 138/100
[2017-11-23] MEDS ORDERED: ceFAZolin 2 GM/50 ML PRE-MIX IVPB IV ONE (07:15)
[2017-11-23] MEDS ORDERED: DOCU-143 PO (11:49)
[2017-11-23] MEDS ORDERED: ACHD5005 PO (11:49)
== END 2017-11-18 13:20 | disposition home or self-care (01) ==
LOC: PREOP 12:16
PROVIDERS: ATTEND Surgery
DX: Z01.818 Encounter for other preprocedural examination (principal)
CPT/HCPCS: 87081

== ENCOUNTER → 2018-03-22 | Outpatient (CLI) | payer MEDICARE ==
[~2018-03-22] MED LIST changes: +ACHD5005 PO; -AMLO10TA2 PO; +AMLO10TA6 PO; +DOCU-143 PO; -LOSA100T28 PO; +LOSA100T8 PO; +METO-333 PO; +RT-ALBUTEROL SULF 2.5 MG/3 ML PRE-MIX VIAL INH ONE
--- NOTE | 2018-03-22 13:19 | Diagnostic Imaging Report ---
PROCEDURE: CT chest without contrast. TECHNIQUE: Multiple contiguous axial images were obtained through the chest without the use of intravenous contrast. INDICATION: COPD and dyspnea. No prior chest CT studies are available for comparison. Comparison is made with a chest radiograph from 02/18/2017. FINDINGS: Postop changes of median sternotomy and CABG are identified. No axillary lymphadenopathy is seen. No definite hilar or mediastinal lymphadenopathy is seen. There are coronary arterial calcifications. No pericardial or pleural fluid is detected. Parenchymal evaluation does show some scarring or atelectasis in the lingula. Otherwise, the lungs are clear. No nodule or mass is seen. Upper abdomen does show an ovoid soft tissue mass-like density adjacent to the pancreatic tail measuring 4.2 cm. The spleen is not visualized and this may represent a splenule or accessory spleen. Upper abdomen is otherwise unremarkable. IMPRESSION: Status post CABG. No parenchymal mass, infiltrate or evidence of thoracic lymphadenopathy is seen. Dictated by: Dictated on workstation # [id number]
== END ==
LOC: RT 12:08
PROVIDERS: ATTEND Nurse Practitioner Family
DX: J44.9 Chronic obstructive pulmonary disease, unspecified (principal); R06.00 Dyspnea, unspecified; Z72.0 Tobacco use
CPT/HCPCS: 71250; 94060; 94726; 94729

== ENCOUNTER → 2018-04-27 | Outpatient (CLI) | payer MEDICARE ==
[~2018-04-27] MED LIST changes: +IOHEXOL 350 MG/ML 100 ML (OMNIPAQUE 350) VIAL IV ONE; +NS 250 ML (IVPB) BAG IV ONE; +RECEIVED CONTRAST (Hold Metformin) IV SCH; -RT-ALBUTEROL SULF 2.5 MG/3 ML PRE-MIX VIAL INH ONE
--- NOTE | 2018-04-27 12:25 | Diagnostic Imaging Report ---
PROCEDURE: CT abdomen with and without contrast. TECHNIQUE: Multiple contiguous axial CT images of the abdomen were obtained prior to and after intravenous administration of iodinated contrast. INDICATION: Pancreatic mass. FINDINGS: Partially calcified soft tissue structure in the left upper quadrant distorts the distal tail of the pancreas but this appears extrapancreatic and is believed splenule measuring 4.2 cm. No other presumed splenic tissue is found. The pancreas itself appears intrinsically unremarkable. The liver, gallbladder, bile ducts, and adrenals are negative. There is no bowel obstruction. There is no ascites, abscess, hematoma, fluid collection, or lymphadenopathy. The kidneys are normal. The lung base is nonacute. There is some ventral herniation associated with lower sternal and xiphoidal dehiscence noted, a chronic finding. IMPRESSION: Left upper quadrant soft tissue density structure is believed splenic tissue. It distorts the pancreas but is extrapancreatic with the pancreas itself appearing unremarkable. No acute or suspicious finding. Dictated by: Dictated on workstation # [id number]
== END ==
LOC: RAD 10:55
PROVIDERS: ATTEND Internal Medicine Hematology & Oncology
DX: K86.89 Other specified diseases of pancreas (principal)
CPT/HCPCS: 74170

== ENCOUNTER 2018-05-14 12:58 | Outpatient (RCR) | payer MEDICARE, OTHER ==
[2018-04-27 10:59] LABS: BASOPHILS # (AUTO) 0.1 10^3/uL (0.0-0.1); BASOPHILS % (AUTO) 1 % (0-10); EOSINOPHILS # (AUTO) 0.4 10^3/uL (0.0-0.3); EOSINOPHILS % (AUTO) 3 % (0-10); HEMATOCRIT 45 % (40-54); HEMOGLOBIN 15.3 G/DL (13.3-17.7); LYMPHOCYTES # (AUTO) 2.7 X 10^3 (1.0-4.0); LYMPHOCYTES % (AUTO) 22 % (12-44); MEAN CORPUSCULAR HEMOGLOBIN 29 PG (25-34); MEAN CORPUSCULAR HGB CONC 34 G/DL (32-36); MEAN CORPUSCULAR VOLUME 87 FL (80-99); MEAN PLATELET VOLUME 9.2 FL (7.4-10.4); MONOCYTES # (AUTO) 1.4 X 10^3 (0.0-1.0); MONOCYTES % (AUTO) 11 % (0-12); NEUTROPHILS # (AUTO) 7.8 X 10^3 (1.8-7.8); NEUTROPHILS % (AUTO) 63 % (42-75); PLATELET COUNT 403 10^3/uL (130-400); WHITE BLOOD COUNT 12.3 10^3/uL (4.3-11.0)
[2018-04-27 11:20] LABS: ALANINE AMINOTRANSFERASE 28 U/L (0-55); ALBUMIN 4.2 GM/DL (3.2-4.5); ALKALINE PHOSPHATASE 102 U/L (40-136); BILIRUBIN,TOTAL 0.9 MG/DL (0.1-1.0); BUN/CREATININE RATIO 8; CARBON DIOXIDE 24 MMOL/L (21-32); CHLORIDE 105 MMOL/L (98-107); CREATININE SERUM 1.19 MG/DL (0.60-1.30); GFR ESTIMATED > 60; GLUCOSE 100 MG/DL (70-105); POTASSIUM 4.3 MMOL/L (3.6-5.0); SODIUM 141 MMOL/L (135-145); TOTAL PROTEIN 7.4 GM/DL (6.4-8.2)
== END 2018-07-20 | disposition home or self-care (01) ==
LOC: ONC 12:58
PROVIDERS: ATTEND Internal Medicine Hematology & Oncology
DX: K86.9 Disease of pancreas, unspecified (principal); C91.42 Hairy cell leukemia, in relapse; I25.10 Atherosclerotic heart disease of native coronary artery without angina pectoris; J44.9 Chronic obstructive pulmonary disease, unspecified; I77.89 Other specified disorders of arteries and arterioles; I10 Essential (primary) hypertension; E78.5 Hyperlipidemia, unspecified; F17.220 Nicotine dependence, chewing tobacco, uncomplicated; Z79.82 Long term (current) use of aspirin; Z79.899 Other long term (current) drug therapy
CPT/HCPCS: 36415; 80053; 85025; 99213; 99214

== ENCOUNTER → 2018-06-03 | Outpatient (CLI) | payer MEDICARE ==
[~2018-06-03] MED LIST changes: -IOHEXOL 350 MG/ML 100 ML (OMNIPAQUE 350) VIAL IV ONE; -NS 250 ML (IVPB) BAG IV ONE; -RECEIVED CONTRAST (Hold Metformin) IV SCH
--- NOTE | 2018-06-03 09:21 | Diagnostic Imaging Report ---
PROCEDURE: MR imaging cholangiography-pancreatography. TECHNIQUE: Multiplanar imaging of the abdomen was performed on a 1.5 Isha magnet without contrast. 3D reconstructions were made for the MRCP INDICATION: Left upper quadrant mass. There are no previous MRI examinations available for comparison. The CT chest exam of 03/22/[address] abdomen exam of 04/27/2018 did note a well-circumscribed partially calcified soft tissue structure in the left upper quadrant adjacent to the tail of the pancreas. This finding measured 4.2 cm maximum dimension and was felt to be related to splenic tissue. The spleen itself was surgically absent. On this exam that finding is again visualized. This area does show diminished signal on the T1 series and slightly increased signal on the T2 series. I do suspect that this is a benign process and that this may well be splenic tissue. If further imaging is desired, then a nuclear medicine sulfur colloid scan would be recommended. If the nuclear medicine study is not performed, then either a followup MRI or CT exam in 6 months would be recommended for continued evaluation. There is no other abnormality of the abdomen identified. IMPRESSION: . The soft tissue density adjacent to the tail of the pancreas seen previously is most likely a benign process and may well represent splenic tissue. Recommendations as above. 2. There is no acute abnormality of the abdomen noted otherwise. Dictated by: Dictated on workstation # [id number]
== END ==
LOC: RAD 07:43
PROVIDERS: ATTEND Internal Medicine Gastroenterology
DX: R19.02 Left upper quadrant abdominal swelling, mass and lump (principal); Z90.81 Acquired absence of spleen
CPT/HCPCS: 74181

== ENCOUNTER → 2019-04-05 | Outpatient (CLI) | payer MEDICARE ==
[~2019-04-05] MED LIST changes: -AMLO10TA6 PO; +AMLO10TA7 PO; +LOSA100T57 PO; -LOSA100T8 PO
--- NOTE | 2019-04-05 08:45 | Diagnostic Imaging Report ---
PROCEDURE: CT chest without contrast. TECHNIQUE: Multiple contiguous axial images were obtained through the chest without the use of intravenous contrast. Auto Exposure Controls were utilized during the CT exam to meet ALARA standards for radiation dose reduction. INDICATION: COPD. Shortness of breath. Comparison with 03/22/2018. FINDINGS: Median sternotomy changes are present. There has been development of mild atelectasis left lung base. Mild pleural scarring noted as well on the left. No infiltrates or masses are seen within the lungs. No bronchiectasis or bullous emphysematous changes. No mediastinal or hilar adenopathy of pathologic size. No acute bony abnormalities. IMPRESSION: Postoperative residue with some pleural scarring and basilar atelectasis. No significant air trapping or emphysematous changes demonstrated. Dictated by: Dictated on workstation # [id number]
== END ==
LOC: RAD 08:05
PROVIDERS: ATTEND Nurse Practitioner Family
DX: J44.9 Chronic obstructive pulmonary disease, unspecified (principal); J98.11 Atelectasis; J98.4 Other disorders of lung
CPT/HCPCS: 71250

== ENCOUNTER 2019-05-18 09:05 | Outpatient (RCR) | payer MEDICARE ==
[~2019-05-18 09:05] MED LIST changes: +MECL-172 PO; -MECL12.579 PO; -METO-370 PO; -METO-395 PO; +METO50TA7 PO; +MTP100TCR PO
[2019-05-18 09:21] LABS: BASOPHILS # (AUTO) 0.1 10^3/uL (0.0-0.1); BASOPHILS % (AUTO) 1 % (0-10); EOSINOPHILS # (AUTO) 0.3 10^3/uL (0.0-0.3); EOSINOPHILS % (AUTO) 3 % (0-10); HEMATOCRIT 44 % (40-54); HEMOGLOBIN 14.3 G/DL (13.3-17.7); LYMPHOCYTES # (AUTO) 1.8 X 10^3 (1.0-4.0); LYMPHOCYTES % (AUTO) 19 % (12-44); MEAN CORPUSCULAR HEMOGLOBIN 29 PG (25-34); MEAN CORPUSCULAR HGB CONC 33 G/DL (32-36); MEAN CORPUSCULAR VOLUME 88 FL (80-99); MEAN PLATELET VOLUME 9.7 FL (7.4-10.4); MONOCYTES # (AUTO) 0.8 X 10^3 (0.0-1.0); MONOCYTES % (AUTO) 9 % (0-12); NEUTROPHILS # (AUTO) 6.4 X 10^3 (1.8-7.8); NEUTROPHILS % (AUTO) 69 % (42-75); PLATELET COUNT 401 10^3/uL (130-400); WHITE BLOOD COUNT 9.4 10^3/uL (4.3-11.0)
[2019-05-18 09:42] LABS: CARBON DIOXIDE 23 MMOL/L (21-32); CHLORIDE 101 MMOL/L (98-107); CREATININE SERUM 1.11 MG/DL (0.60-1.30); POTASSIUM 4.1 MMOL/L (3.6-5.0); SODIUM 135 MMOL/L (135-145)
[2019-05-18 09:43] LABS: ALANINE AMINOTRANSFERASE 28 U/L (0-55); ALBUMIN 4.2 GM/DL (3.2-4.5); ALKALINE PHOSPHATASE 114 U/L (40-136); BILIRUBIN,TOTAL 0.7 MG/DL (0.1-1.0); BUN/CREATININE RATIO 9; CALCIUM 8.7 MG/DL (8.5-10.1); GFR ESTIMATED > 60; GLUCOSE 151 MG/DL (70-105); TOTAL PROTEIN 7.2 GM/DL (6.4-8.2)
== END 2019-08-16 | disposition home or self-care (01) ==
LOC: ONC 09:05
PROVIDERS: ATTEND Internal Medicine Hematology & Oncology
DX: K86.9 Disease of pancreas, unspecified (principal); C91.42 Hairy cell leukemia, in relapse; I25.10 Atherosclerotic heart disease of native coronary artery without angina pectoris; J44.9 Chronic obstructive pulmonary disease, unspecified; I77.89 Other specified disorders of arteries and arterioles; I10 Essential (primary) hypertension; E78.5 Hyperlipidemia, unspecified; F17.220 Nicotine dependence, chewing tobacco, uncomplicated; Z79.82 Long term (current) use of aspirin; Z79.899 Other long term (current) drug therapy
CPT/HCPCS: 80053; 85025; 99213

== ENCOUNTER → 2019-11-22 | Outpatient (CLI) | payer MEDICARE ==
[~2019-11-22] VITALS: Ht 178 cm; Wt 122.0 kg
[~2019-11-22] MED LIST changes: +CATHETER FLUSH 10 ML SYR IV PRN; +REGADENOSON 0.4 MG/5 ML SYR (LEXISCAN) IV ONE
[2019-11-22 09:03] VITALS: BP 196/94
[2019-11-22 09:05] VITALS: BP 183/87
--- NOTE | 2019-11-22 15:42 | STRESS TEST ---
DATE OF SERVICE: 11/22/2019 RESTING AND POST REGADENOSON TECHNETIUM-99M TETROFOSMIN SPECT CT IMAGING ORDERING PHYSICIAN: Maryellen Garnett APRN CLINICAL DIAGNOSES: Coronary artery disease, hyperlipidemia, hypertension, tobacco use. Baseline images were carried out after injection of 10.7 mCi of technetium-99m Tetrofosmin. This was followed by 0.4 mg regadenoson and 31.2 mCi of technetium-99m Tetrofosmin for stress imaging. The electrocardiogram showed sinus rhythm at baseline. The electrocardiogram did not change significantly with regadenoson infusion. The patient did not report significant symptoms. Review of images at rest and following stress indicates a predominantly transient basal inferior perfusion defect. Gated images showed normal global left ventricular systolic function with normal regional wall motion except that there appears to be some basal inferior hypokinesis. Left ventricular ejection fraction is calculated to be 63%. Left ventricular end diastolic volume is 71 mL. TID is absent (0.89). CONCLUSIONS: 1. The study is indicative of a small to moderate amount of basal inferior ischemia. 2. Basal inferior hypokinesis. 3. Well preserved global left ventricular systolic function with a calculated ejection fraction of 63%. Job ID: [id number] DocumentID: [id number] Dictated Date: 11/22/2019 15:20:19 Manager Willow Date: 11/22/2019 15:41:21 Dictated By: LETICIA PENA MD, MA, FACP, FACC,
== END ==
LOC: CARD 07:10
PROVIDERS: ATTEND Nurse Practitioner Family
DX: I25.10 Atherosclerotic heart disease of native coronary artery without angina pectoris (principal); I77.89 Other specified disorders of arteries and arterioles; E78.5 Hyperlipidemia, unspecified; I10 Essential (primary) hypertension; Z72.0 Tobacco use
CPT/HCPCS: 78452; 93017; A9502

== ENCOUNTER → 2020-05-18 | Outpatient (CLI) | payer MEDICARE ==
[~2020-05-18] MED LIST changes: +AMLO-251 PO; -AMLO10TA7 PO; +ASPI-1238 PO; -ASPI-983 PO; -CATHETER FLUSH 10 ML SYR IV PRN; -MECL-172 PO; +MECL-173 PO; -REGADENOSON 0.4 MG/5 ML SYR (LEXISCAN) IV ONE
[2020-05-18 10:04] LABS: BASOPHILS # (AUTO) 0.1 10^3/uL (0.0-0.1); BASOPHILS % (AUTO) 1 % (0-10); EOSINOPHILS # (AUTO) 0.4 10^3/uL (0.0-0.3); EOSINOPHILS % (AUTO) 4 % (0-10); HEMATOCRIT 45 % (40-54); HEMOGLOBIN 14.7 g/dL (13.3-17.7); LYMPHOCYTES # (AUTO) 2.2 10^3/uL (1.0-4.0); LYMPHOCYTES % (AUTO) 18 % (12-44); MEAN CORPUSCULAR HEMOGLOBIN 29 pg (25-34); MEAN CORPUSCULAR HGB CONC 33 g/dL (32-36); MEAN CORPUSCULAR VOLUME 88 fL (80-99); MEAN PLATELET VOLUME 9.7 fL (9.0-12.2); MONOCYTES # (AUTO) 1.1 10^3/uL (0.0-1.0); MONOCYTES % (AUTO) 10 % (0-12); NEUTROPHILS # (AUTO) 7.9 10^3/uL (1.8-7.8); NEUTROPHILS % (AUTO) 67 % (42-75); PLATELET COUNT 363 10^3/uL (130-400); WHITE BLOOD COUNT 11.7 10^3/uL (4.3-11.0)
[2020-05-18 10:17] LABS: ALANINE AMINOTRANSFERASE 22 U/L (0-55); ALKALINE PHOSPHATASE 138 U/L (40-136); BILIRUBIN,TOTAL 1.2 MG/DL (0.1-1.0); BUN/CREATININE RATIO 10; CALCIUM 8.5 MG/DL (8.5-10.1); CARBON DIOXIDE 21 MMOL/L (21-32); CHLORIDE 104 MMOL/L (98-107); CREATININE SERUM 1.07 MG/DL (0.60-1.30); GFR ESTIMATED > 60; GLUCOSE 154 MG/DL (70-105); SODIUM 136 MMOL/L (135-145); TOTAL PROTEIN 7.3 GM/DL (6.4-8.2)
== END ==
LOC: ONC 09:48
PROVIDERS: ATTEND Internal Medicine Hematology & Oncology
DX: C91.40 Hairy cell leukemia not having achieved remission (principal); J44.9 Chronic obstructive pulmonary disease, unspecified; Z95.828 Presence of other vascular implants and grafts
CPT/HCPCS: 80053; 85025; G0463; 99213

== ENCOUNTER → 2020-10-04 | Outpatient (CLI) | payer MEDICARE ==
[~2020-10-04] MED LIST changes: -ISOS30TA3 PO; +ISOS30TA82 PO; -LISI-556 PO; +LISI-729 PO; -LISI40TA PO; +LISI40TA9 PO; -MECL-173 PO; +MECL-215 PO
== END ==
LOC: LAB 10:34
PROVIDERS: ATTEND Urology
DX: N40.0 Benign prostatic hyperplasia without lower urinary tract symptoms (principal)
CPT/HCPCS: 36415; 84153; 84154

== ENCOUNTER 2020-10-30 18:16 | Emergency (ER) | payer MEDICARE ==
[~2020-10-30] VITALS: Ht 177.8 cm; Wt 117.9 kg
--- NOTE | 2020-10-30 18:29 | ED General ---
General Stated Complaint: CP Source of Information: Patient, EMS Exam Limitations: No Limitations History of Present Illness Date Seen by Provider: Oct 30, 2020 Time Seen by Provider: 18:25 Initial Comments To ER by EMS from home with reports of left sided chest pain that radiates down the left arm. This started about 1 hour ago while at rest. He does have some shortness of breath that is chronic for him and little nausea. He took his baby aspirin this morning as per his usual along with his Plavix. He was recently off of his Plavix for 10 days for a prostate biopsy. He has been back on his Plavix for about 1 week. History of three-vessel CABG and 2 coronary stents. Follows with Dr. Johnston. No fevers chills or cough. Timing/Duration: 1 Hour Severity: Moderate Associated Systoms: Chest Pain Allergies and Home Medications Allergies Coded Allergies: No Known Drug Allergies (Unverified , 11/18/17) Home Medications Amlodipine Besylate 10 Mg Tablet, 10 MG PO DAILY, (Reported) Aspirin 81 Mg Tab.chew, 81 MG PO DAILY, (Reported) Atorvastatin Calcium 40 Mg Tablet, 40 MG PO DAILY, (Reported) Clopidogrel Bisulfate 75 Mg Tablet, 75 MG PO DAILY, (Reported) Docusate Sodium 100 Mg Capsule, 100 MG PO DAILY Prescribed by: YULISSA ALARCON on 11/23/17 1149 Hydrocodone Bit/Acetaminophen 1 Tab Tab, 1 TAB PO Q4H PRN Prescribed by: YULISSA ALARCON on 11/23/17 1149 Metoprolol Tartrate 25 Mg Tablet, 25 MG PO BID, (Reported) Nitroglycerin 0.4 Mg Tab.subl, 0.4 MG SL UD PRN for CHEST PAIN, (Reported) Patient Home Medication List Home Medication List Reviewed: Yes Review of Systems Review of Systems Constitutional: see HPI EENTM: see HPI Respiratory: no symptoms reported Cardiovascular: see HPI, chest pain Genitourinary: no symptoms reported Musculoskeletal: no symptoms reported Skin: no symptoms reported Psychiatric/Neurological: No Symptoms Reported Hematologic/Lymphatic: No Symptoms Reported Immunological/Allergic: no symptoms reported Past Aoafqda-Eudhrd-Rfmijq Hx Patient Social History Alcohol Beverage of Choice: Beer Type Used: Cigarettes, Smokeless Tobacco Former Smoker, Quit: Mar 23, 2013 2nd Hand Smoke Exposure: No Recent Hopitalizations: No Immunizations Up To Date Tetanus Booster (TDap): Unknown PED Vaccines UTD: No Date of Pneumonia Vaccine: Jul 27, 2012 Date of Influenza Vaccine: Mar 29, 2016 Seasonal Allergies Seasonal Allergies: No Past Medical History Surgeries: Yes (SPLENECTOMY) Adenoidectomy, Cardiac, CABG, Coronary Stent, Tonsillectomy Respiratory: Yes COPD Currently Using CPAP: No Currently Using BIPAP: No Cardiac: Yes (stents/ballooned) Coronary Artery Disease, Heart Attack, High Cholesterol, Hypertension Neurological: No TIA Reproductive Disorders: No Sexually Transmitted Disease: No HIV/AIDS: No Genitourinary: No Gastrointestinal: No Musculoskeletal: No Endocrine: No HEENT: No Loss of Vision: Bilateral Hearing Impairment: Hard of Hearing Cancer: Yes ("hairy cell" leukemia) Leukemia Did You Recieve Any Treatments: Yes What Type of Treatment Did You: Chemotherapy Psychosocial: Yes Anxiety Integumentary: No Blood Disorders: Yes (HX OF LEUKEMIA) Adverse Reaction/Blood Tranf: No (HAS HAD BLOOD WITH NO REACTION) Family Medical History Arthritis 19 FATHER 19 MOTHER Cardiovascular disease 19 FATHER Completed stroke 19 FATHER, Onset:Unknown (1981) Deadly fall G8 BROTHER (9 years) Hypercholesterolemia 19 FATHER Hypertension 19 FATHER Myocardial infarction 19 FATHER 19 MOTHER (C.O.D.) Physical Exam Vital Signs Vital Signs - First Documented 10/30/20 18:18 Temp 36.4 Pulse 80 Resp 17 B/P (MAP) 151/85 (107) Pulse Ox 95 O2 Delivery Room Air Capillary Refill : Height, Weight, BMI Height: 5'9.00" Weight: 259lbs. 4.0oz. 117.156106cz; 38.50 BMI Method:Stated General Appearance: No Apparent Distress, WD/WN Eyes: Bilateral Eye Normal Inspection, Bilateral Eye PERRL, Bilateral Eye EOMI Neck: Full Range of Motion, Normal Inspection Respiratory: No Accessory Muscle Use, No Respiratory Distress Cardiovascular: Regular Rate, Rhythm, Normal Peripheral Pulses Gastrointestinal: Normal Bowel Sounds, Non Tender, Soft, Other (There is a tennis ball size ventral hernia at the superior aspect of abdominal midline scar. ) Extremity: Normal Capillary Refill, Normal Inspection Neurologic/Psychiatric: Alert, Oriented x3 Skin: Normal Color, Warm/Dry Progress/Results/Core Measures Suspected Sepsis SIRS Temperature: Pulse: Respiratory Rate: Laboratory Tests 10/30/20 18:26: White Blood Count 10.3 Blood Pressure / Mean: Laboratory Tests 10/30/20 18:26: Creatinine 1.13, Platelet Count 346, Total Bilirubin 0.6 Results/Orders Lab Results Laboratory Tests Test 10/30/20 18:26 10/30/20 20:26 Range/Units White Blood Count 10.3 4.3-11.0 10^3/uL Red Blood Count 5.20 4.30-5.52 10^6/uL Hemoglobin 16.3 13.3-17.7 g/dL Hematocrit 47 40-54 % Mean Corpuscular Volume 91 80-99 fL Mean Corpuscular Hemoglobin 31 25-34 pg Mean Corpuscular Hemoglobin Concent 35 32-36 g/dL Red Cell Distribution Width 13.7 10.0-14.5 % Platelet Count 346 130-400 10^3/uL Mean Platelet Volume 9.5 9.0-12.2 fL Immature Granulocyte % (Auto) 0 % Neutrophils (%) (Auto) 58 42-75 % Lymphocytes (%) (Auto) 29 12-44 % Monocytes (%) (Auto) 8 0-12 % Eosinophils (%) (Auto) 4 0-10 % Basophils (%) (Auto) 1 0-10 % Neutrophils # (Auto) 6.0 1.8-7.8 10^3/uL Lymphocytes # (Auto) 3.0 1.0-4.0 10^3/uL Monocytes # (Auto) 0.8 0.0-1.0 10^3/uL Eosinophils # (Auto) 0.4 H 0.0-0.3 10^3/uL Basophils # (Auto) 0.1 0.0-0.1 10^3/uL Immature Granulocyte # (Auto) 0.0 0.0-0.1 10^3/uL Sodium Level 135 135-145 MMOL/L Potassium Level 4.2 3.6-5.0 MMOL/L Chloride Level 101 98-107 MMOL/L Carbon Dioxide Level 18 L 21-32 MMOL/L Anion Gap 16 H 5-14 MMOL/L Blood Urea Nitrogen 12 7-18 MG/DL Creatinine 1.13 0.60-1.30 MG/DL Estimat Glomerular Filtration Rate > 60 BUN/Creatinine Ratio 11 Glucose Level 154 H 70-105 MG/DL Calcium Level 9.2 8.5-10.1 MG/DL Corrected Calcium 9.1 8.5-10.1 MG/DL Magnesium Level 2.1 1.6-2.4 MG/DL Total Bilirubin 0.6 0.1-1.0 MG/DL Aspartate Amino Transf (AST/SGOT) 34 5-34 U/L Alanine Aminotransferase (ALT/SGPT) 33 0-55 U/L Alkaline Phosphatase 119 40-136 U/L Myoglobin 48.5 10.0-92.0 NG/ML Troponin I < 0.028 < 0.028 <0.028 NG/ML B-Type Natriuretic Peptide 38.6 <100.0 PG/ML Total Protein 7.7 6.4-8.2 GM/DL Albumin 4.1 3.2-4.5 GM/DL My Orders Orders - SHEEBA TIERNEY MUSIC JOURNALIST Cbc With Automated Diff (10/30/20 18:24) Magnesium (10/30/20 18:24) Chest 1 View, Ap/Pa Only (10/30/20 18:24) Ekg Tracing (10/30/20 18:24) Comprehensive Metabolic Panel (10/30/20 18:24) Myoglobin Serum (10/30/20 18:24) Protime With Inr (10/30/20 18:24) Partial Thromboplastin Time (10/30/20 18:24) O2 (10/30/20 18:24) Monitor-Rhythm Ecg Trace Only (10/30/20 18:24) Lipid Panel (10/31/20 06:00) Ed Iv/Invasive Line Start (10/30/20 18:24) BNP (10/30/20 18:24) Troponin I (10/30/20 18:24) Nitroglycerin 0.4 Mg Btl 25's (Nitrostat (10/30/20 18:30) Aspirin Chewable Tablet (Baby Aspirin Ch (10/30/20 18:30) Troponin I (10/30/20 20:26) Oxycodone/Apap 5/325mg Tablet (Percocet (10/30/20 19:30) Medications Given in ED Current Medications Medications Dose Ordered Sig/Mio Route Start Time Stop Time Status Last Admin Dose Admin Aspirin 324 mg ONCE ONCE PO 10/30/20 18:30 10/30/20 18:31 DC 10/30/20 18:31 324 MG Nitroglycerin 0.4 mg UD PRN SL 10/30/20 18:30 10/30/20 18:46 0.4 MG Oxycodone/ Acetaminophen 1 tab ONCE ONCE PO 10/30/20 19:30 10/30/20 19:31 DC 10/30/20 19:40 1 TAB Vital Signs/I&O 10/30/20 10/30/20 18:18 18:18 Temp 36.4 Pulse 80 Resp 17 B/P (MAP) 151/85 (107) Pulse Ox 95 O2 Delivery Room Air Room Air Capillary Refill : Departure Communication (Admissions) 2105-discussed with Dr. Lee. He would prefer to have a troponin drawn at 5 hours after symptom onset. His chest pain began at 5 PM. This would be 10 PM. Impression Primary Impression: Chest pain Disposition: 01 HOME, SELF-CARE Condition: Stable Departure-Patient Inst. Decision time for Depature: 20:57 Referrals: SANIA MCCAIN MD (PCP/Family) Primary Care Physician Patient Instructions: Chest Pain (DC) Add. Discharge Instructions: 1. Return to ER for any concerns. Follow-up with your doctor next week. Call your bindery helper tomorrow to make an appointment to be seen as soon as he can see you. SHEEBA TIERNEY APRN Oct 30, 2020 18:29
[2020-10-30] MEDS ORDERED: ASPIRIN 81 MG CHEW (CHILDREN'S ASA) PO ONE (18:30)
[2020-10-30] MEDS: NITROGLYCERIN 0.4 MG SL TABS BTL 25'S SL PRN ×2 (18:31→18:46)
[2020-10-30 18:41] LABS: BASOPHILS # (AUTO) 0.1 10^3/uL (0.0-0.1); BASOPHILS % (AUTO) 1 % (0-10); EOSINOPHILS # (AUTO) 0.4 10^3/uL (0.0-0.3); EOSINOPHILS % (AUTO) 4 % (0-10); HEMATOCRIT 47 % (40-54); HEMOGLOBIN 16.3 g/dL (13.3-17.7); LYMPHOCYTES % (AUTO) 29 % (12-44); MEAN CORPUSCULAR HEMOGLOBIN 31 pg (25-34); MEAN CORPUSCULAR HGB CONC 35 g/dL (32-36); MEAN CORPUSCULAR VOLUME 91 fL (80-99); MEAN PLATELET VOLUME 9.5 fL (9.0-12.2); MONOCYTES # (AUTO) 0.8 10^3/uL (0.0-1.0); MONOCYTES % (AUTO) 8 % (0-12); NEUTROPHILS % (AUTO) 58 % (42-75); PLATELET COUNT 346 10^3/uL (130-400); WHITE BLOOD COUNT 10.3 10^3/uL (4.3-11.0)
[2020-10-30 18:42] LABS: ALBUMIN 4.1 GM/DL (3.2-4.5); CHLORIDE 101 MMOL/L (98-107); POTASSIUM 4.2 MMOL/L (3.6-5.0); SODIUM 135 MMOL/L (135-145)
[2020-10-30 18:44] LABS: CALCIUM 9.2 MG/DL (8.5-10.1)
[2020-10-30 18:45] LABS: GLUCOSE 154 MG/DL (70-105); TOTAL PROTEIN 7.7 GM/DL (6.4-8.2)
[2020-10-30 18:46] LABS: BILIRUBIN,TOTAL 0.6 MG/DL (0.1-1.0); CARBON DIOXIDE 18 MMOL/L (21-32)
[2020-10-30 18:48] LABS: ALKALINE PHOSPHATASE 119 U/L (40-136); CREATININE SERUM 1.13 MG/DL (0.60-1.30); GFR ESTIMATED > 60
[2020-10-30 18:49] LABS: BUN/CREATININE RATIO 11
[2020-10-30 18:51] LABS: ALANINE AMINOTRANSFERASE 33 U/L (0-55); MAGNESIUM 2.1 MG/DL (1.6-2.4)
--- NOTE | 2020-10-30 19:07 | Diagnostic Imaging Report ---
INDICATION: Chest pain. Time of exam: 6:52 PM Correlation is made with prior chest 02/18/2017. The heart is enlarged but stable. There are changes of median sternotomy. No infiltrate or failure is detected. There is no effusion or pneumothorax. IMPRESSION: No acute cardiopulmonary process is detected. Dictated by: Dictated on workstation # [id number]
[2020-10-30] MEDS ORDERED: oxyCODONE/APAP 5/325MG (PERCOCET 5) TABLET PO ONE (19:30)
[2020-10-30 22:20] VITALS: BP 126/72
== END 2020-10-30 22:21 | disposition home or self-care (01) ==
LOC: EDUNIT# 18:16 → ER 18:18
DX: R07.9 Chest pain, unspecified (principal); I11.0 Hypertensive heart disease with heart failure; I50.9 Heart failure, unspecified; I25.10 Atherosclerotic heart disease of native coronary artery without angina pectoris; E78.00 Pure hypercholesterolemia, unspecified; J44.9 Chronic obstructive pulmonary disease, unspecified; Z95.5 Presence of coronary angioplasty implant and graft; Z95.1 Presence of aortocoronary bypass graft; Z87.891 Personal history of nicotine dependence; Z79.82 Long term (current) use of aspirin; Z79.899 Other long term (current) drug therapy
CPT/HCPCS: 36415; 71045; 80053; 83735; 83874; 83880; 84484; 85025; 93005; 93041

== ENCOUNTER → 2021-03-01 | Outpatient (CLI) | payer MEDICARE | LOC: CARD 08:54 | PROVIDERS: ATTEND Internal Medicine Cardiovascular Disease | DX: I51.7 Cardiomegaly (principal) | CPT/HCPCS: 93306 ==

== ENCOUNTER 2021-04-12 15:59 | Emergency (ER) | payer MEDICARE ==
[~2021-04-12] VITALS: Ht 175.3 cm; Wt 113.4 kg
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
[2021-04-12 16:18] LABS: BASOPHILS # (AUTO) 0.1 10^3/uL (0.0-0.1); BASOPHILS % (AUTO) 1 % (0-10); EOSINOPHILS # (AUTO) 0.1 10^3/uL (0.0-0.3); EOSINOPHILS % (AUTO) 1 % (0-10); HEMATOCRIT 47 % (40-54); HEMOGLOBIN 15.8 g/dL (13.3-17.7); LYMPHOCYTES # (AUTO) 3.2 10^3/uL (1.0-4.0); LYMPHOCYTES % (AUTO) 32 % (12-44); MEAN CORPUSCULAR HEMOGLOBIN 31 pg (25-34); MEAN CORPUSCULAR HGB CONC 34 g/dL (32-36); MEAN CORPUSCULAR VOLUME 93 fL (80-99); MEAN PLATELET VOLUME 9.2 fL (9.0-12.2); MONOCYTES # (AUTO) 0.7 10^3/uL (0.0-1.0); MONOCYTES % (AUTO) 7 % (0-12); NEUTROPHILS # (AUTO) 5.8 10^3/uL (1.8-7.8); NEUTROPHILS % (AUTO) 59 % (42-75); PLATELET COUNT 364 10^3/uL (130-400); WHITE BLOOD COUNT 9.8 10^3/uL (4.3-11.0)
[2021-04-12 16:26] LABS: ALBUMIN 4.2 GM/DL (3.2-4.5); POTASSIUM 3.6 MMOL/L (3.6-5.0)
[2021-04-12 16:27] LABS: CALCIUM 8.3 MG/DL (8.5-10.1)
[2021-04-12 16:29] LABS: INR 1.1 (0.8-1.4); PROTHROMBIN TIME PATIENT 14.4 SEC (12.2-14.7); TOTAL PROTEIN 7.4 GM/DL (6.4-8.2)
[2021-04-12 16:30] LABS: BILIRUBIN,TOTAL 0.8 MG/DL (0.1-1.0)
[2021-04-12 16:32] LABS: CREATININE SERUM 0.95 MG/DL (0.60-1.30)
[2021-04-12 16:35] LABS: MAGNESIUM 2.1 MG/DL (1.6-2.4)
--- NOTE | 2021-04-12 16:35 | Diagnostic Imaging Report ---
EXAMINATION: Chest 1 view HISTORY: Chest pain COMPARISON: 10/30/2020. FINDINGS: The heart size is stable with surgical changes from CABG. The lungs are clear without consolidation, pleural effusion, or pneumothorax. The osseous structures are intact. IMPRESSION: 1. No acute radiographic abnormality in the chest. Dictated by: Dictated on workstation # [id number]
[2021-04-12 17:25] VITALS: BP 143/86
== END 2021-04-12 17:29 | disposition home or self-care (01) ==
LOC: EDUNIT# 15:59 → ER 16:01
DX: F10.129 Alcohol abuse with intoxication, unspecified (principal); J44.9 Chronic obstructive pulmonary disease, unspecified; I25.2 Old myocardial infarction; I10 Essential (primary) hypertension; E78.00 Pure hypercholesterolemia, unspecified; I25.10 Atherosclerotic heart disease of native coronary artery without angina pectoris; F17.200 Nicotine dependence, unspecified, uncomplicated; Z86.73 Personal history of transient ischemic attack (TIA), and cerebral infarction without residual deficits; Z79.82 Long term (current) use of aspirin; Z79.01 Long term (current) use of anticoagulants; Z79.899 Other long term (current) drug therapy
CPT/HCPCS: 71045; 80053; 83735; 83874; 83880; 84484; 85025; 85610; 85730; 93041; 99284; G0480; 36415; 80320

== ENCOUNTER → 2021-05-16 | Outpatient (CLI) | payer MEDICARE ==
[~2021-05-16] MED LIST changes: -LISI-729 PO; +LISI5TAB20 PO
[2021-05-16 08:58] LABS: BASOPHILS # (AUTO) 0.1 10^3/uL (0.0-0.1); BASOPHILS % (AUTO) 1 % (0-10); EOSINOPHILS # (AUTO) 0.4 10^3/uL (0.0-0.3); EOSINOPHILS % (AUTO) 3 % (0-10); HEMATOCRIT 49 % (40-54); LYMPHOCYTES % (AUTO) 20 % (12-44); MEAN CORPUSCULAR HEMOGLOBIN 31 pg (25-34); MEAN CORPUSCULAR HGB CONC 33 g/dL (32-36); MEAN CORPUSCULAR VOLUME 94 fL (80-99); MEAN PLATELET VOLUME 9.2 fL (9.0-12.2); MONOCYTES % (AUTO) 10 % (0-12); NEUTROPHILS # (AUTO) 6.8 10^3/uL (1.8-7.8); NEUTROPHILS % (AUTO) 66 % (42-75); PLATELET COUNT 361 10^3/uL (130-400); WHITE BLOOD COUNT 10.4 10^3/uL (4.3-11.0)
[2021-05-16 09:22] LABS: ALBUMIN 3.9 GM/DL (3.2-4.5); BILIRUBIN,TOTAL 1.4 MG/DL (0.1-1.0); CALCIUM 8.7 MG/DL (8.5-10.1); CREATININE SERUM 1.05 MG/DL (0.60-1.30); TOTAL PROTEIN 7.1 GM/DL (6.4-8.2)
== END ==
LOC: ONC 08:40
PROVIDERS: ATTEND Internal Medicine Hematology & Oncology
DX: C91.40 Hairy cell leukemia not having achieved remission (principal); K86.89 Other specified diseases of pancreas; I10 Essential (primary) hypertension; I25.10 Atherosclerotic heart disease of native coronary artery without angina pectoris; E78.2 Mixed hyperlipidemia; J44.9 Chronic obstructive pulmonary disease, unspecified; E66.9 Obesity, unspecified
CPT/HCPCS: 80053; 85025; G0463; 99213

== ENCOUNTER 2021-11-04 14:26 | Emergency (ER) | payer MEDICARE ==
[~2021-11-04] VITALS: Ht 178 cm; Wt 118.0 kg
[~2021-11-04 14:26] MED LIST changes: +ACET-11; -ACET1TAB43
--- NOTE | 2021-11-04 14:49 | ED Lower Extremity ---
General Stated Complaint: L LEG SWELLING Source: patient Exam Limitations: no limitations (DYLAN ASTORGA) History of Present Illness Date Seen by Provider: Nov 04, 2021 Time Seen by Provider: 14:33 Initial Comments Patient presents ER by private conveyance from home with chief complaint of left lower extremity swelling, pain starting 1 day ago acutely and rising quickly. No injury. No wounds redness or fever. No history of blood clots but is concerned he might have a blood clot. He is on Plavix for the history of coronary disease triple bypass in 2017 and 2 stents. He is followed by Dr. Srinath barry and Dr. Mccain for primary care. No cough, chest pain, hemoptysis, shortness of air or racing heart rate. He is not a smoker but does occasionally drink. (DYLAN ASTORGA) Allergies and Home Medications Allergies Coded Allergies: No Known Drug Allergies (Unverified , 11/18/17) Patient Home Medication List Home Medication List Reviewed: Yes (DYLAN ASTORGA) Amlodipine Besylate (Amlodipine Besylate) 10 Mg Tablet, 10 MG PO DAILY, (Reported) Entered as Reported by: JEM METCALF on 11/18/17 1229 Aspirin (Aspirin) 81 Mg Tab.chew, 81 MG PO DAILY, (Reported) Entered as Reported by: SHIVAM KHAN on 09/01/16 1304 Atorvastatin Calcium (Atorvastatin Calcium) 40 Mg Tablet, 40 MG PO DAILY, (Reported) Entered as Reported by: JEM METCALF on 11/18/17 1229 Clopidogrel Bisulfate (Clopidogrel) 75 Mg Tablet, 75 MG PO DAILY, (Reported) Entered as Reported by: JEM METCALF on 11/18/17 1229 Docusate Sodium (Colace) 100 Mg Capsule, 100 MG PO DAILY Prescribed by: YULISSA ALARCON on 11/23/17 1149 Hydrocodone Bit/Acetaminophen (Lortab 5 Mg Tablet) 1 Tab Tab, 1 TAB PO Q4H PRN Prescribed by: YULISSA ALARCON on 11/23/17 1149 Metoprolol Tartrate (Metoprolol Tartrate) 25 Mg Tablet, 25 MG PO BID, (Reported) Entered as Reported by: JEM METCALF on 11/18/17 1229 Nitroglycerin (Nitrostat) 0.4 Mg Tab.subl, 0.4 MG SL UD PRN for CHEST PAIN, (Reported) Entered as Reported by: SHIVAM KHAN on 09/24/15 0910 Review of Systems Constitutional: No chills, No diaphoresis EENTM: No ear discharge, No ear pain Respiratory: No cough, No hemoptysis, No orthopnea Cardiovascular: see HPI; No chest pain; edema, Hx of Intervention; No palpitations Gastrointestinal: No abdominal pain, No constipation, No diarrhea, No nausea Genitourinary: No discharge, No dysuria Musculoskeletal: No back pain, No joint pain (DYLAN ASTORGA) All Other Systems Reviewed Negative Unless Noted: Yes (DYLAN SATORGA) Past Ajzvytv-Ssbtzf-Uvhumw Hx Patient Social History Tobacco Use?: No Use of E-Cig and/or Vaping dev: No Substance use?: No (DYLAN ASTORGA) Immunizations Up To Date Tetanus Booster (TDap): Unknown PED Vaccines UTD: No First/Initial COVID19 Vaccinat: 2020 Second COVID19 Vaccination Danial: 2020 (DYLAN ASTORGA) Seasonal Allergies Seasonal Allergies: No (DYLAN ASTORGA) Past Medical History Surgeries: Yes (SPLENECTOMY, PORT PLACED AND REMOVED) Adenoidectomy, Cardiac, CABG, Coronary Stent, Tonsillectomy Respiratory: Yes COPD Currently Using CPAP: No Currently Using BIPAP: No Cardiac: Yes (stents/ballooned) Coronary Artery Disease, Heart Attack, High Cholesterol, Hypertension Neurological: Yes TIA Reproductive Disorders: No Sexually Transmitted Disease: No HIV/AIDS: No Genitourinary: No Gastrointestinal: Yes (INCISIONAL HERNIA) Musculoskeletal: No Endocrine: No HEENT: No Loss of Vision: Bilateral Hearing Impairment: Hard of Hearing Cancer: Yes ("hairy cell" leukemia) Leukemia Did You Recieve Any Treatments: Yes What Type of Treatment Did You: Chemotherapy Psychosocial: Yes Anxiety Integumentary: No Blood Disorders: Yes (HX OF LEUKEMIA) Adverse Reaction/Blood Tranf: No (HAS HAD BLOOD WITH NO REACTION) (DYLAN ASTORGA) Family Medical History Arthritis 19 FATHER 19 MOTHER Cardiovascular disease 19 FATHER Completed stroke 19 FATHER, Onset:Unknown (1981) Deadly fall G8 BROTHER (9 years) Hypercholesterolemia 19 FATHER Hypertension 19 FATHER Myocardial infarction 19 FATHER 19 MOTHER (C.O.D.) Physical Exam Vital Signs Vital Signs - First Documented 11/04/21 14:34 Temp 36.8 Pulse 78 Resp 18 B/P (MAP) 163/90 (114) Pulse Ox 96 O2 Delivery Room Air (JESICA LOPEZ) Vital Signs Capillary Refill : (DYLAN ASTORGA) Height, Weight, BMI Height: 5'9.00" Weight: 259lbs. 4.0oz. [id number]; 36.00 BMI Method:Stated General Appearance: WD/WN, no apparent distress HEENT: PERRL/EOMI, pharynx normal Neck: full range of motion, normal inspection Cardiovascular: normal peripheral pulses (1+ out of 4 posterior tibial pulses symmetric bilaterally.), regular rate, rhythm Respiratory: lungs clear, normal breath sounds, no respiratory distress, no accessory muscle use Legs: right leg non-tender, right leg normal inspection; bilateral leg normal range of motion; right leg no evidence of injury; left leg pain, left leg soft tissue tenderness, left leg swelling (1+ edema from the ankle up to the thigh mid femur without erythema or induration.) Neurologic/Psychiatric: alert, normal mood/affect, oriented x 3 Skin: normal color, warm/dry (DYLAN ASTORGA) Progress/Results/Core Measures Results/Orders Lab Results Laboratory Tests Test 11/04/21 14:46 Range/Units White Blood Count 9.2 4.3-11.0 10^3/uL Red Blood Count 4.90 4.30-5.52 10^6/uL Hemoglobin 15.1 13.3-17.7 g/dL Hematocrit 44 40-54 % Mean Corpuscular Volume 90 80-99 fL Mean Corpuscular Hemoglobin 31 25-34 pg Mean Corpuscular Hemoglobin Concent 34 32-36 g/dL Red Cell Distribution Width 14.3 10.0-14.5 % Platelet Count 331 130-400 10^3/uL Mean Platelet Volume 9.5 9.0-12.2 fL Immature Granulocyte % (Auto) 0 % Neutrophils (%) (Auto) 60 42-75 % Lymphocytes (%) (Auto) 26 12-44 % Monocytes (%) (Auto) 9 0-12 % Eosinophils (%) (Auto) 4 0-10 % Basophils (%) (Auto) 1 0-10 % Neutrophils # (Auto) 5.5 1.8-7.8 X 10^3 Lymphocytes # (Auto) 2.4 1.0-4.0 X 10^3 Monocytes # (Auto) 0.8 0.0-1.0 X 10^3 Eosinophils # (Auto) 0.4 H 0.0-0.3 10^3/uL Basophils # (Auto) 0.1 0.0-0.1 10^3/uL Immature Granulocyte # (Auto) 0.0 0.0-0.1 10^3/uL D-Dimer 0.66 H 0.00-0.49 UG/ML Sodium Level 134 L 135-145 MMOL/L Potassium Level 4.0 3.6-5.0 MMOL/L Chloride Level 102 98-107 MMOL/L Carbon Dioxide Level 20 L 21-32 MMOL/L Anion Gap 12 5-14 MMOL/L Blood Urea Nitrogen 9 7-18 MG/DL Creatinine 1.03 0.60-1.30 MG/DL Estimat Glomerular Filtration Rate 81 BUN/Creatinine Ratio 9 Glucose Level 123 H 70-105 MG/DL Calcium Level 8.8 8.5-10.1 MG/DL Corrected Calcium 8.6 8.5-10.1 MG/DL Total Bilirubin 1.0 0.1-1.0 MG/DL Aspartate Amino Transf (AST/SGOT) 28 5-34 U/L Alanine Aminotransferase (ALT/SGPT) 32 0-55 U/L Alkaline Phosphatase 107 40-136 U/L C-Reactive Protein High Sensitivity 0.33 0.00-0.50 MG/DL Total Protein 7.5 6.4-8.2 GM/DL Albumin 4.3 3.2-4.5 GM/DL (JESICA LOPEZ) Vital Signs/I&O 11/04/21 14:34 Temp 36.8 Pulse 78 Resp 18 B/P (MAP) 163/90 (114) Pulse Ox 96 O2 Delivery Room Air (JESICA LOPEZ) Progress Progress Note : Time: 14:48 Progress Note Concern for DVT so we will get an ultrasound. Check some basic labs and markers of inflammation possibility of a cellulitis. No wounds are seen of significance. He declined anything for pain. (DYLAN ASTORGA) Diagnostic Imaging Diagonstic Imaging: Ultrasound Plain Films/CT/US/NM/MRI: leg (Left) Comments [facility]. [place], [place] NAME: LILIANE CAVAZOS [facility] REC#: [id number] PT STATUS: REG ER : 1955 PHYSICIAN: DYLAN ASTORGA MD ADMIT DATE: 11/04/21/ER Draft Date of Exam:11/04/21 US VENOUS LOWER EXT LT CLINICAL INDICATION: Patient with swelling and pain in the left lower extremity. COMPARISON: Ultrasound venous Doppler study of the left lower extremity dated 01/30/2017. PROCEDURE: Ultrasound venous ultrasound of the left lower extremity with multiple real-time grayscale images were obtained in various projections. Additional spectral analysis and color Doppler duple images were also obtained. FINDINGS: The deep venous system is well visualized and is easily compressible. There is no evidence of deep venous thrombosis, valvular incompetence, or significant collateral circulation. There is no significant fluid collection in the popliteal fossa region. IMPRESSION: There is no ultrasound Doppler evidence of deep venous thrombosis in the left lower extremity. Dictated on workstation # [id number] Dict: 11/04/21 1542 Trans: 11/04/21 1545 [id number] Interpreted by: CIARRA ESTES MD Electronically signed by: Reviewed: Reviewed by Me (DYLAN ASTORGA) Departure Communication (PCP) Lab work reassuring. Ultrasound was negative for DVT. No evidence of cellulitis. Denies of any trauma. No chest pain or shortness of breath. Recommend NAÍBAL hose during the day. Elevate at night. Follow-up with your primary care physician or cardiology for further evaluation. (JESICA LOPEZ) Impression Primary Impression: Left leg swelling Disposition: HOME, SELF-CARE Condition: Stable Departure-Patient Inst. Decision time for Depature: 16:05 (JESICA LOPEZ) Referrals: SANIA MCCAIN MD (PCP/Family) Primary Care Physician Patient Instructions: Swelling Add. Discharge Instructions: Recommend wearing ANÍBAL hose during the day. Elevate at night. Follow-up with your corporate accounting manager or primary care physician for further evaluation. DYLAN ASTORGA Nov 04, 2021 14:48 JESICA LOPEZ Nov 04, 2021 16:07
[2021-11-04 14:55] LABS: BASOPHILS # (AUTO) 0.1 10^3/uL (0.0-0.1); BASOPHILS % (AUTO) 1 % (0-10); EOSINOPHILS # (AUTO) 0.4 10^3/uL (0.0-0.3); EOSINOPHILS % (AUTO) 4 % (0-10); HEMATOCRIT 44 % (40-54); HEMOGLOBIN 15.1 g/dL (13.3-17.7); LYMPHOCYTES # (AUTO) 2.4 X 10^3 (1.0-4.0); LYMPHOCYTES % (AUTO) 26 % (12-44); MEAN CORPUSCULAR HEMOGLOBIN 31 pg (25-34); MEAN CORPUSCULAR HGB CONC 34 g/dL (32-36); MEAN CORPUSCULAR VOLUME 90 fL (80-99); MEAN PLATELET VOLUME 9.5 fL (9.0-12.2); MONOCYTES # (AUTO) 0.8 X 10^3 (0.0-1.0); MONOCYTES % (AUTO) 9 % (0-12); NEUTROPHILS # (AUTO) 5.5 X 10^3 (1.8-7.8); NEUTROPHILS % (AUTO) 60 % (42-75); PLATELET COUNT 331 10^3/uL (130-400); WHITE BLOOD COUNT 9.2 10^3/uL (4.3-11.0)
[2021-11-04 15:04] LABS: ALBUMIN 4.3 GM/DL (3.2-4.5)
[2021-11-04 15:05] LABS: CALCIUM 8.8 MG/DL (8.5-10.1)
[2021-11-04 15:07] LABS: TOTAL PROTEIN 7.5 GM/DL (6.4-8.2)
[2021-11-04 15:10] LABS: CREATININE SERUM 1.03 MG/DL (0.60-1.30)
--- NOTE | 2021-11-04 15:45 | Diagnostic Imaging Report ---
CLINICAL INDICATION: Patient with swelling and pain in the left lower extremity. COMPARISON: Ultrasound venous Doppler study of the left lower extremity dated 01/30/2017. PROCEDURE: Ultrasound venous ultrasound of the left lower extremity with multiple real-time grayscale images were obtained in various projections. Additional spectral analysis and color Doppler duple images were also obtained. FINDINGS: The deep venous system is well visualized and is easily compressible. There is no evidence of deep venous thrombosis, valvular incompetence, or significant collateral circulation. There is no significant fluid collection in the popliteal fossa region. IMPRESSION: There is no ultrasound Doppler evidence of deep venous thrombosis in the left lower extremity. Dictated by: Dictated on workstation # [id number]
[2021-11-04 16:20] VITALS: BP 139/76
== END 2021-11-04 16:14 | disposition home or self-care (01) ==
LOC: EDUNIT# 14:26 → ER 14:28
DX: R60.0 Localized edema (principal); I25.10 Atherosclerotic heart disease of native coronary artery without angina pectoris; Z95.1 Presence of aortocoronary bypass graft; Z79.02 Long term (current) use of antithrombotics/antiplatelets
CPT/HCPCS: 36415; 80053; 85025; 85379; 86141

== ENCOUNTER → 2022-06-11 | Outpatient (CLI) | payer MEDICARE ==
[~2022-06-11] MED LIST changes: +ALBU8.5H6 IH
[2022-06-11 11:14] LABS: BASOPHILS % (AUTO) 0 % (0-10); EOSINOPHILS # (AUTO) 0.2 10^3/uL (0.0-0.3); EOSINOPHILS % (AUTO) 2 % (0-10); HEMATOCRIT 41 % (40-54); HEMOGLOBIN 13.8 g/dL (13.3-17.7); LYMPHOCYTES # (AUTO) 2.2 10^3/uL (1.0-4.0); LYMPHOCYTES % (AUTO) 21 % (12-44); MEAN CORPUSCULAR HEMOGLOBIN 31 pg (25-34); MEAN CORPUSCULAR HGB CONC 34 g/dL (32-36); MEAN CORPUSCULAR VOLUME 92 fL (80-99); MONOCYTES # (AUTO) 1.2 10^3/uL (0.0-1.0); MONOCYTES % (AUTO) 11 % (0-12); NEUTROPHILS # (AUTO) 6.8 10^3/uL (1.8-7.8); NEUTROPHILS % (AUTO) 65 % (42-75); PLATELET COUNT 384 10^3/uL (130-400); WHITE BLOOD COUNT 10.5 10^3/uL (4.3-11.0)
[2022-06-11 11:43] LABS: ALBUMIN 3.9 GM/DL (3.2-4.5); BILIRUBIN,TOTAL 0.7 MG/DL (0.1-1.0); CALCIUM 8.7 MG/DL (8.5-10.1); CREATININE SERUM 1.42 MG/DL (0.60-1.30); POTASSIUM 3.8 MMOL/L (3.6-5.0); TOTAL PROTEIN 7.5 GM/DL (6.4-8.2)
== END ==
LOC: ONC 10:45
PROVIDERS: ATTEND Internal Medicine Hematology & Oncology
DX: C91.40 Hairy cell leukemia not having achieved remission (principal); I10 Essential (primary) hypertension; J44.9 Chronic obstructive pulmonary disease, unspecified; I25.10 Atherosclerotic heart disease of native coronary artery without angina pectoris; E78.2 Mixed hyperlipidemia; J43.9 Emphysema, unspecified
CPT/HCPCS: 36415; 80053; 85025; 99213

== ENCOUNTER → 2022-06-26 | Outpatient (CLI) | payer MEDICARE | LOC: WOUNDCARE 08:34 | PROVIDERS: ATTEND Family Medicine | DX: I96 Gangrene, not elsewhere classified (principal); L97.222 Non-pressure chronic ulcer of left calf with fat layer exposed; L97.212 Non-pressure chronic ulcer of right calf with fat layer exposed; I87.333 Chronic venous hypertension (idiopathic) with ulcer and inflammation of bilateral lower extremity; L29.9 Pruritus, unspecified; L03.116 Cellulitis of left lower limb; I89.0 Lymphedema, not elsewhere classified; R73.9 Hyperglycemia, unspecified; E66.01 Morbid (severe) obesity due to excess calories; F17.220 Nicotine dependence, chewing tobacco, uncomplicated; Z68.37 Body mass index [BMI] 37.0-37.9, adult | CPT/HCPCS: 83036; 84134; A6197; G0463; 36415; 99214 ==

== ENCOUNTER → 2022-07-03 | Outpatient (CLI) | payer MEDICARE | LOC: WOUNDCARE 07:56 | PROVIDERS: ATTEND Family Medicine | DX: I96 Gangrene, not elsewhere classified (principal); I87.333 Chronic venous hypertension (idiopathic) with ulcer and inflammation of bilateral lower extremity; I89.0 Lymphedema, not elsewhere classified; L97.212 Non-pressure chronic ulcer of right calf with fat layer exposed; L97.222 Non-pressure chronic ulcer of left calf with fat layer exposed; L29.9 Pruritus, unspecified; E11.622 Type 2 diabetes mellitus with other skin ulcer; E11.65 Type 2 diabetes mellitus with hyperglycemia; F17.220 Nicotine dependence, chewing tobacco, uncomplicated; E66.01 Morbid (severe) obesity due to excess calories; E44.0 Moderate protein-calorie malnutrition; Z68.37 Body mass index [BMI] 37.0-37.9, adult | CPT/HCPCS: 11042; A6253; G0463 ==

== ENCOUNTER → 2022-07-07 | Outpatient (CLI) | payer MEDICARE | LOC: WOUNDCARE 08:02 | PROVIDERS: ATTEND Family Medicine | DX: S81.809A Unspecified open wound, unspecified lower leg, initial encounter (principal); E11.622 Type 2 diabetes mellitus with other skin ulcer; L97.909 Non-pressure chronic ulcer of unspecified part of unspecified lower leg with unspecified severity; J44.9 Chronic obstructive pulmonary disease, unspecified; I25.10 Atherosclerotic heart disease of native coronary artery without angina pectoris; I10 Essential (primary) hypertension | CPT/HCPCS: 29581; A6253; G0463 ==

== ENCOUNTER → 2022-07-10 | Outpatient (CLI) | payer MEDICARE | LOC: WOUNDCARE 08:12 | PROVIDERS: ATTEND Family Medicine | DX: L97.222 Non-pressure chronic ulcer of left calf with fat layer exposed (principal); I87.333 Chronic venous hypertension (idiopathic) with ulcer and inflammation of bilateral lower extremity; I89.0 Lymphedema, not elsewhere classified; E66.01 Morbid (severe) obesity due to excess calories; F17.220 Nicotine dependence, chewing tobacco, uncomplicated; L98.1 Factitial dermatitis; E11.622 Type 2 diabetes mellitus with other skin ulcer; E11.65 Type 2 diabetes mellitus with hyperglycemia; E44.0 Moderate protein-calorie malnutrition; L97.212 Non-pressure chronic ulcer of right calf with fat layer exposed; E11.52 Type 2 diabetes mellitus with diabetic peripheral angiopathy with gangrene | CPT/HCPCS: 11042; 29581; A6212; G0463 ==

== ENCOUNTER → 2022-07-17 | Outpatient (CLI) | payer MEDICARE | LOC: WOUNDCARE 08:05 | PROVIDERS: ATTEND Family Medicine | DX: L97.222 Non-pressure chronic ulcer of left calf with fat layer exposed (principal); I87.333 Chronic venous hypertension (idiopathic) with ulcer and inflammation of bilateral lower extremity; I89.0 Lymphedema, not elsewhere classified; E66.01 Morbid (severe) obesity due to excess calories; F17.220 Nicotine dependence, chewing tobacco, uncomplicated; L29.9 Pruritus, unspecified; L98.1 Factitial dermatitis; E11.622 Type 2 diabetes mellitus with other skin ulcer; E11.65 Type 2 diabetes mellitus with hyperglycemia; E44.0 Moderate protein-calorie malnutrition; R46.0 Very low level of personal hygiene | CPT/HCPCS: 29581; A6212; G0463 ==

== ENCOUNTER → 2022-07-24 | Outpatient (CLI) | payer MEDICARE | LOC: WOUNDCARE 08:03 | PROVIDERS: ATTEND Family Medicine | DX: I87.333 Chronic venous hypertension (idiopathic) with ulcer and inflammation of bilateral lower extremity (principal); L97.222 Non-pressure chronic ulcer of left calf with fat layer exposed; I89.0 Lymphedema, not elsewhere classified; E66.01 Morbid (severe) obesity due to excess calories; F17.220 Nicotine dependence, chewing tobacco, uncomplicated; L98.1 Factitial dermatitis; E11.622 Type 2 diabetes mellitus with other skin ulcer; E11.65 Type 2 diabetes mellitus with hyperglycemia; E44.0 Moderate protein-calorie malnutrition | CPT/HCPCS: 99212 ==

== ENCOUNTER → 2023-05-08 | Outpatient (CLI) | payer MEDICARE ==
[~2023-05-08] MED LIST changes: -LOSA100T57 PO; +LOSA100T58 PO
[2023-05-08 09:52] LABS: HEMATOCRIT 36 % (40-54); HEMOGLOBIN 11.3 g/dL (13.3-17.7); MEAN CORPUSCULAR HEMOGLOBIN 26 pg (25-34); MEAN CORPUSCULAR HGB CONC 32 g/dL (32-36); MEAN CORPUSCULAR VOLUME 83 fL (80-99); MEAN PLATELET VOLUME 9.6 fL (9.0-12.2); PLATELET COUNT 367 10^3/uL (130-400); WHITE BLOOD COUNT 12.2 10^3/uL (4.3-11.0)
[2023-05-08 10:05] LABS: ALBUMIN 3.9 GM/DL (3.2-4.5); BILIRUBIN,TOTAL 0.8 MG/DL (0.1-1.0); CALCIUM 8.8 MG/DL (8.5-10.1); CREATININE SERUM 1.74 MG/DL (0.60-1.30); MAGNESIUM 1.9 MG/DL (1.6-2.4); POTASSIUM 4.6 MMOL/L (3.6-5.0); TOTAL PROTEIN 7.7 GM/DL (6.4-8.2)
== END ==
LOC: LAB 09:34
PROVIDERS: ATTEND Internal Medicine Cardiovascular Disease
DX: I10 Essential (primary) hypertension (principal); I25.10 Atherosclerotic heart disease of native coronary artery without angina pectoris; I65.23 Occlusion and stenosis of bilateral carotid arteries; E78.2 Mixed hyperlipidemia; M79.89 Other specified soft tissue disorders; Z95.1 Presence of aortocoronary bypass graft; Z72.0 Tobacco use
CPT/HCPCS: 36415; 80053; 80061; 83735; 85027